=== PATIENT | female | born 1970 | race Caucasian/White ===

== ENCOUNTER → 2018-10-05 12:00 | Outpatient (CLI) | payer OTHER, SELFPAY ==
--- NOTE | 2018-10-05 | DI.RAD.S_ITS ---
PROCEDURE: XR KNEE LT 3V INDICATIONS: R HIP PAIN, BILATERAL KNEE PAIN TECHNIQUE: 3 views of the knee were acquired. COMPARISON: None. FINDINGS: Bones: No fractures or dislocations. Mild tricompartmental osteoarthritis is seen slightly more prominent in the medial femoral tibial compartment. No suspicious bony lesions. No patella subluxation is seen. Soft tissues: No joint effusion. No suspicious soft tissue calcifications. IMPRESSION: Mild tricompartmental osteoarthritis multiple prominent in medial femorotibial compartment. Dictated by: Chandler Cruz M.D. on 10/05/2018 at 13:38 Approved by: Chandler Cruz M.D. on 10/05/2018 at 13:40
--- NOTE | 2018-10-05 | DI.RAD.S_ITS ---
PROCEDURE: XR PELVIS 1-2V INDICATIONS: R HIP PAIN, BILATERAL KNEE PAIN TECHNIQUE: Single view(s) of the pelvis acquired. COMPARISON: None. FINDINGS: Bones: Mild bilateral hip joint osteoarthritic changes are seen slightly worse on the right side. No fractures or dislocations. No evidence of avascular necrosis of femoral heads. The mild right worse than left No suspicious bony lesions. Soft tissues: Visualized bowel gas pattern is normal. No suspicious soft tissue calcifications. IMPRESSION: Mild right worse than left bilateral hip joint osteoarthritis. Dictated by: Chandler Cruz M.D. on 10/05/2018 at 13:42 Approved by: Chandler Cruz M.D. on 10/05/2018 at 13:43
--- NOTE | 2018-10-05 | DI.RAD.S_ITS ---
PROCEDURE: XR KNEE STANDING BI INDICATIONS: PAIN TECHNIQUE: AP standing view of bilateral knees. COMPARISON: None. FINDINGS: Bones: Mild bilateral medial femoral tibial compartment joint space narrowing is seen. No fracture or dislocation. Soft tissues: No suspicious soft tissue calcification. IMPRESSION: Mild bilateral medial femoral tibial compartment joint space narrowing. Dictated by: Chandler Cruz M.D. on 10/05/2018 at 13:40 Approved by: Chandler Cruz M.D. on 10/05/2018 at 13:41
--- NOTE | 2018-10-05 | DI.RAD.S_ITS ---
PROCEDURE: XR KNEE RT 3V INDICATIONS: R HIP PAIN, BILATERAL KNEE PAIN TECHNIQUE: 3 views of the knee were acquired. COMPARISON: None. FINDINGS: Bones: No fractures or dislocations. Mild tricompartment osteoarthritis is seen. No suspicious bony lesions. No patella subluxation. Soft tissues: No joint effusion. No suspicious soft tissue calcifications. IMPRESSION: Mild tricompartment osteoarthritis. Dictated by: Chandler Cruz M.D. on 10/05/2018 at 13:36 Approved by: Chandler Cruz M.D. on 10/05/2018 at 13:38
== END ==
PROVIDERS: PCP Family Medicine; Visit Provider Chiropractor
DX: M25.551 Pain in right hip (principal); M25.561 Pain in right knee; M25.562 Pain in left knee; M17.0 Bilateral primary osteoarthritis of knee; M16.0 Bilateral primary osteoarthritis of hip
CPT/HCPCS: 72170; 73562; 73565

== ENCOUNTER → 2018-12-28 15:25 | Outpatient (CLI) | payer OTHER, SELFPAY ==
--- NOTE | 2018-12-28 | DI.MG.S_ITS ---
BILATERAL DIGITAL SCREENING MAMMOGRAM 3D/2D WITH CAD: 12/28/2018 CLINICAL: Routine screening. Comparison is made to exams dated: 01/02/2017 mammogram, 03/24/2015 mammogram, and 03/18/2014 mammogram - [facility]. The tissue of both breasts is heterogeneously dense. This may lower the sensitivity of mammography. Current study was also evaluated with a Computer Aided Detection (CAD) system. No significant masses, calcifications, or other findings are seen in either breast. There has been no significant interval change. IMPRESSION: NEGATIVE There is no mammographic evidence of malignancy. A 1 year screening mammogram is recommended. This exam was interpreted at Station ID: [id number]. NOTE: For mammograms, a report in lay terms will be sent to the patient. Approximately 15% of breast malignancies will not be visualized mammographically. In the management of a palpable breast mass, a negative mammogram must not discourage biopsy of a clinically suspicious lesion. Electronically Signed By: Bob santana/diann:12/28/2018 17:37:33 letter sent: Normal Exam ACR BI-RADS Category 1: Negative [id number]
== END ==
PROVIDERS: PCP Family Medicine; Visit Provider Family Medicine
DX: Z12.31 Encounter for screening mammogram for malignant neoplasm of breast (principal)
CPT/HCPCS: 77063; 77067

== ENCOUNTER → 2019-04-26 10:56 | Outpatient (CLI) | payer OTHER, SELFPAY ==
--- NOTE | 2019-05-07 16:01 | P.HOLT.S_ITS ---
[employer] Report Referral & Results Date Patient Seen: 04/26/19 Requesting provider: Saadia Bunn Indication: Palpitations Duration of monitoring (days): 7 Diary information: There were 7 patient triggered events and 5 patient diary entries Triggered events were associated with sinus rhythm, PACs and runs of SVT versus atrial tachycardia, the diary entries were associated with sinus rhythm and PACs Data: Minimum heart rate identified is 52 beats per minute at 22:10 on 05/02/2019 Maximum heart rate was 152 beats per minute at 07:17 on 04/29/2019 Less than 1% of identified beats rather ventricular supraventricular ectopic in origin Patient to runs of SVT/atrial tachycardia with the fastest being 14 beats at 152 beats per minute (which suggest possible atrial tachycardia) and this was also the longest run Impression: Patient with minor supraventricular dysrhythmias as above
== END ==
PROVIDERS: PCP Nurse Practitioner; Visit Provider Nurse Practitioner
DX: R00.2 Palpitations (principal)
CPT/HCPCS: 0296T; 0298T

== ENCOUNTER 2019-05-14 15:01 | Emergency (ER) | payer OTHER, SELFPAY ==
[2019-05-14 15:05] VITALS: BP 116/89; PULSE 71; RESP 12; TEMP 36.9; O2SAT 100; BMI 23.6
--- NOTE | 2019-05-14 15:18 | DI.RAD.S_ITS ---
PROCEDURE: XR CHEST 1V INDICATIONS: chest pain TECHNIQUE: One view of the chest was acquired. COMPARISON: [facility], , CHEST 2 VIEW, 02/03/2013, 13:56. FINDINGS: Surgical changes and devices: None. Lungs and pleura: Lungs are clear. No pleural effusions or pneumothorax. Mediastinum: Mediastinal contours appear normal. Heart size is normal. Bones and chest wall: No suspicious bony lesions. Overlying soft tissues appear unremarkable. IMPRESSION: No evidence acute pulmonary process. Dictated by: Get Angel M.D. on 05/14/2019 at 16:18 Approved by: Get Angel M.D. on 05/14/2019 at 16:18
[2019-05-14 15:29] LABS: Add Manual Diff / Slide Review NO; Basophils Absolute Auto 0 /uL (0-100); Basophils Percent Auto 0.5 % (0-2); Eosinophils Absolute Auto 200 /uL (0-450); Eosinophils Percent Auto 3.9 % (2-4); Hematocrit 40.5 % (36-46); Hemoglobin 13.6 g/dL (12.0-16.0); Lymphocytes Absolute Auto 1700 /uL (1100-4500); Lymphocytes Percent Auto 31.5 % (25-40); Mean Corpuscular HGB Conc 33.6 % (30-36); Mean Corpuscular Hemoglobin 33.4 PG (26-34); Mean Corpuscular Volume 99.3 fL (80-100); Monocytes Absolute Auto 500 /uL (0-900); Monocytes Percent Auto 9.2 % (3-14); Neutrophils Absolute Auto 3000 /uL (1500-7000); Neutrophils Percent Auto 54.9 % (50-75); Platelet Count 189 X10^3/uL (150-400); Red Blood Cell Count 4.07 X10^6/uL (4.0-5.2); Red Cell Distribution Width 12.8 % (11.6-14.8); White Blood Cell Count 5.5 X10^3/uL (4.5-11.0)
[2019-05-14 15:41] LABS: INR 1.1 (0.9-1.3); Prothrombin Time 12.7 SECONDS (10.1-12.7)
[2019-05-14 15:44] LABS: PTT Partial Thromboplastin Tim 36 SECONDS (26.4-36.2)
[2019-05-14 15:45] LABS: Alanine Aminotransferase 18 IU/L (<35); Albumin 4.3 g/dL (3.5-5.0); Albumin Globulin Ratio 1.3 (1.0-2.8); Alkaline Phosphatase 46 U/L (38-126); Aspartate Aminotransferase 28 IU/L (14-36); BUN Creatinine Ratio 27.1 (6-22); Bilirubin Total 0.7 mg/dL (0.2-1.3); Blood Urea Nitrogen 19 mg/dL (7-17); Calcium 9.1 mg/dL (8.4-10.2); Carbon Dioxide 29 mmol/L (22-32); Chloride 101 mmol/L (98-107); Creatine Kinase 42 U/L (30-135); Estimated Glomerular Filt Rate > 60.0 mL/min (>60); Globulin 3.2 g/dL (1.7-4.1); Glucose 158 mg/dL (70-100); HEMOLYSIS < 15 (0-50); Lipase 70 U/L (23-300); Potassium 3.3 mmol/L (3.4-5.1); Sodium 138 mmol/L (137-145); Total Protein 7.5 g/dL (6.3-8.2)
[2019-05-14 15:56] LABS: Troponin I < 0.012 ng/mL (0.01-0.034)
[2019-05-14 16:00] VITALS: BP 126/82; PULSE 74; PULSE 77; RESP 10; RESP 14; O2SAT 100
--- NOTE | 2019-05-14 16:53 | ED_ITS ---
HPI - Chest Pain General Chief Complaint: Chest Pain Stated Complaint: Chest pain Time Seen by Provider: 05/14/19 15:24 Source: patient Mode of arrival: Ambulatory Limitations: no limitations History of Present Illness HPI narrative: Patient is a 49-year-old female who presents with chest discomfort from the PCP office. She had a Zio patch placed on 04/26/2019 for heart palpitations she was getting the results today when she mentioned that she was having chest twinges ongoing frequently throughout the day. She they last briefly for a just 1-2 seconds sometimes going up into her neck and sometimes down into both of her hands. He denies any shortness of breath these feel different than her previous palpitations. No shortness of breath with exertion no diaphoresis no nausea or vomiting. She has had multiple episodes while in the ER for the last hour or more MD complaint: chest pain Duration: constant Onset: during rest Pain location: substernal Related Data Home Medications Medication Instructions Recorded Confirmed ibuprofen 200 mg tablet 600 mg PO Q6H PRN tab 03/22/19 05/14/19 L norgest/e.estradiol-e.estrad 1 tab PO DAILY 05/14/19 05/14/19 [Camrese] Previous Rx's Medication Instructions Recorded citalopram 10 mg tablet 10 mg PO DAILY #90 tab 05/04/19 hydroxyzine HCl 25 mg tablet 12.5 - 25 mg PO QID PRN #90 tab 05/14/19 Allergies Allergy/AdvReac Type Severity Reaction Status Date / Time No Known Allergies Allergy Uncoded 05/14/19 15:14 Review of Systems Review of Systems Narrative: GENERAL: Denies chills, fatigue, malaise, fever, sweats, travel HEENT: Denies sinus pain, ear pain, sore throat, difficulty swallowing, neck pain RESPIRATORY: Denies dyspnea, cough, wheezing, hemoptysis, sputum. CARDIOVASCULAR: See HPI GASTROINTESTINAL: Denies nausea, vomiting, abdominal pain, diarrhea, constipation, melena. : Denies dysuria, frequency, incontinence, hematuria, urinary retention, flank pain. MUSCULOSKELETAL: Denies weakness, joint pain, or bony pain SKIN: No rash, no erythema, no pruritus NEUROLOGIC: Denies weakness, dizziness, headache, numbness, change in speech, confusion PSYCHIATRIC: No concerning psychosocial issues. 12 point review of systems is negative except for those stated above and HPI Patient History Medical History Abnormal Pap smear of cervix (Resolved ~1996) Anxiety (Acute) Asthma (Chronic ~1975) Carpal tunnel syndrome (Chronic ~2016) Cervical dysplasia (Acute ~1993) Chicken pox (Resolved ~1974) Depression (Acute ~2011) Eczema (Acute) External hemorrhoid (Acute ~1995) Gestational diabetes (Acute) Headache (Chronic) Human papilloma virus (Resolved ~1996) Menorrhagia (Chronic ~1983) Migraines (Chronic) Ovarian cyst (Inactive ~2013) Painful menstrual periods (Chronic ~1983) Palpitations (Acute) Scoliosis (Chronic) Surgical History Anesthesia (Resolved) History of section (Acute ~1989) Family History Father Diabetes mellitus Coronary artery disease Brother Diabetes mellitus Grandfather No problems noted. Grandmother Dementia Grandfather Stroke Grandmother Cancer Social History Smoking Status: Former smoker Exam Initial Vital Signs Initial Vital Signs: Vital Signs Temperature 98.4 F 05/14/19 15:05 Pulse Rate 71 05/14/19 15:05 Respiratory Rate 12 05/14/19 15:05 Blood Pressure 116/89 05/14/19 15:05 Pulse Oximetry 100 05/14/19 15:05 GENERAL: Well-appearing, well-nourished and in no acute distress. HEENT: Head atraumatic,EOMI, pupils reactive, face symmetric, moist mucous membranes CARDIOVASCULAR: Regular rate and rhythm without murmurs, rubs or gallops. RESPIRATORY: Breath sounds equal bilaterally, no wheezes rales or rhonchi. ABDOMEN: Soft, nontender. Normoactive bowel sounds all 4 quadrants. No guarding or rebound. EXTREMITIES: Normal range of motion, no clubbing or edema. Neurovascularly intact NEUROLOGICAL: Alert and oriented x4.Normal gait and speech. Cranial nerves II through XII grossly intact. SKIN: Warm, dry, no laceration, no petechiae, no rashes or lesions. Scores HEART Score Heart Score history: Slightly Suspicious Heart Score EKG: Normal Heart Score Age: 45-64 years old Heart Score risk factors: 1-2 risk factors Heart Score troponin: < or = to normal limit Heart Score Total: 2 Course Orders Ordered: ED Orders 05/14/19 15:18 XR chest 1V Stat EKG-12 Lead Stat 05/14/19 15:23 Complete Blood Count AUTO DIFF Stat Comprehensive Metabolic Panel Stat Lipase Stat Partial Thromboplastin Time Stat Prothrombin Time INR Stat Troponin & CK Cardiac Panel Stat Vital Signs Vital signs: Vital Signs - 8 hr 05/14/19 15:05 05/14/19 16:00 05/14/19 17:28 Temperature 98.4 F Pulse Rate 71 74 77 Respiratory Rate 12 10 L 24 Blood Pressure 116/89 126/82 Blood Pressure [Left Arm] 126/82 Pulse Oximetry 100 100 98 MDM - Chest Pain Lab Data Attestation: I reviewed the patient's lab results. Result diagrams: 05/14/19 15:23 05/14/19 15:23 Labs: Lab Results 05/14/19 05/14/19 05/14/19 Range/Units 15:23 15:23 15:23 WBC 5.5 (4.5-11.0) X10^3/uL RBC 4.07 (4.0-5.2) X10^6/uL Hgb 13.6 (12.0-16.0) g/dL Hct 40.5 (36-46) % MCV 99.3 (80-100) fL MCH 33.4 (26-34) PG MCHC 33.6 (30-36) % RDW 12.8 (11.6-14.8) % Plt Count 189 (150-400) X10^3/uL Neut % (Auto) 54.9 (50-75) % Lymph % (Auto) 31.5 (25-40) % O'Brien % (Auto) 9.2 (3-14) % Eos % (Auto) 3.9 (2-4) % Baso % (Auto) 0.5 (0-2) % Neut # (Auto) 3000 (7614-4103) /uL Lymph # (Auto) 1700 (2323-9244) /uL O'Brien # (Auto) 500 (0-900) /uL Eos # (Auto) 200 (0-450) /uL Baso # (Auto) 0 (0-100) /uL PT 12.7 (10.1-12.7) SECONDS INR 1.1 (0.9-1.3) APTT 36 (26.4-36.2) SECONDS Sodium 138 (137-145) mmol/L Potassium 3.3 L (3.4-5.1) mmol/L Chloride 101 (98-107) mmol/L Carbon Dioxide 29 (22-32) mmol/L BUN 19 H (7-17) mg/dL Creatinine 0.70 (0.52-1.04) mg/dL Estimated GFR > 60.0 (>60) mL/min BUN/Creatinine Ratio 27.1 H (6-22) Glucose 158 H (70-100) mg/dL Calcium 9.1 (8.4-10.2) mg/dL Total Bilirubin 0.7 (0.2-1.3) mg/dL AST 28 (14-36) IU/L ALT 18 (<35) IU/L Alkaline Phosphatase 46 (38-126) U/L Total Creatine Kinase 42 (30-135) U/L CK-MB (CK-2) TNP CK-MB (CK-2) Rel Index TNP Troponin I < 0.012 (0.01-0.034) ng/mL Total Protein 7.5 (6.3-8.2) g/dL Albumin 4.3 (3.5-5.0) g/dL Globulin 3.2 (1.7-4.1) g/dL Albumin/Globulin Ratio 1.3 (1.0-2.8) Lipase 70 (23-300) U/L Imaging Data Chest x-ray: Radiologist's impression: PROCEDURE: XR CHEST 1V INDICATIONS: chest pain TECHNIQUE: One view of the chest was acquired. COMPARISON: [facility], CHEST 2 VIEW, 02/03/2013, 13:56. FINDINGS: Surgical changes and devices: None. Lungs and pleura: Lungs are clear. No pleural effusions or pneumothorax. Mediastinum: Mediastinal contours appear normal. Heart size is normal. Bones and chest wall: No suspicious bony lesions. Overlying soft tissues appear unremarkable. IMPRESSION: No evidence acute pulmonary process. Dictated by: Gte Angel M.D. on 05/14/2019 at 16:18 ECG Data Attestation: I personally reviewed and interpreted this ECG as follows: Prior ECG tracings: not available for review Interpretation: Normal sinus rhythm rate 83 p.r. interval 162 QRS 94 QTC [address] changes or T-wave inversions no priors to compare MDM Narrative Medical decision making narrative: The patient is chest tingling and sharp sensations are not consistent with cardiac ischemia however a do still recommend she have an echocardiogram and stress test however can be done as an outpatient. She has a low heart score. She has normal EKG troponin and chest x-ray in the ED. I discussed all findings with the patient and , Education has been performed regarding treatment plan, diagnosis, warning signs and symptoms and all concerns have been addressed. Verbally agree with and understood all of the above. Discharge Plan Departure Patient Disposition: Home Clinical Impression: Atypical chest pain Discharge Date/Time: 05/14/19 17:28 Instructions: DI for Atypical Chest Pain Activity Restrictions/Additional Instructions: *You have been diagnosed with atypical chest *What to do: Recommend that he still get an echocardiogram, and stress test arranged with your PCP. *Continue to take medications as directed *Follow up with your primary care provider in 2-3 days *Return to ER if you should have increasing chest pain shortness of breath dizziness lightheadedness heart palpitations or any new, worsening or concerning symptoms Prescriptions: No Action citalopram 10 mg tablet 10 mg PO DAILY Qty: 90 RF: 3 hydroxyzine HCl 25 mg tablet 12.5 - 25 mg PO QID PRN (Reason: insomnia/ anxiety) Qty: 90 RF: 2 ibuprofen 200 mg tablet 600 mg PO Q6H PRN (Reason: h/a) RF: 0 L norgest/e.estradiol-e.estrad [Camrese] 0.15 mg-30 mcg (84)/10 mcg (7) Tablets,Dose Pack,3 Month 1 tab PO DAILY RF: 0 Referrals: Saadia Bunn ARNP [Primary Care Provider] -
[2019-05-14 17:28] VITALS: BP 126/82; PULSE 77; RESP 24; O2SAT 98
== END 2019-05-14 17:28 | disposition home or self-care (01) ==
PROVIDERS: Emergency Provider Emergency Medicine; PCP Nurse Practitioner
DX: R07.89 Other chest pain (principal)
CPT/HCPCS: 71045; 80053; 82550; 83690; 84484; 85025; 85610; 85730; 93005; 99282; 99285

== ENCOUNTER → 2019-06-17 07:16 | Outpatient (CLI) | payer OTHER, SELFPAY ==
--- NOTE | 2019-06-17 07:17 | DI.ECHO.S_ITS ---
[facility]---------+ [facility] +---------+ : : [address] : : : : [id number] : : : : Phone: [phone] Echocardiogram Report + + :Name: CARLOS LEVY Study Date: 06/17/2019 Height: 70 in : :[facility] Weight: 165 lb : : Gender: Female BSA: 1.9 m2 : :: 1970 Age: 49 yrs BP: 132/78 mmHg: :Reason For Study: Chest pain : : Performed By: Obinna Fry : :Referring: NOEL WOODSON : + + Interpretation Summary The left ventricle is normal in size. The ejection fraction is estimated to be 55-60%. The right ventricle is normal in size and function. No significant valvular pathology seen. Procedure: A two-dimensional transthoracic echocardiogram with color flow and Doppler was performed. The study quality was technically adequate. There is no prior echocardiogram noted for this patient. The patient was in normal sinus rhythm during the exam. Left Ventricle: The left ventricle is normal in size. There is normal left ventricular wall thickness. There is no thrombus. Left ventricular systolic function is normal. The ejection fraction is estimated to be 55-60%. There is basal inferior wall hypokinesis. Diastolic parameters suggest probable normal left ventricular diastolic function and normal filling pressures. Right Ventricle: The right ventricle is normal in size and function. Atria: The left atrial size is normal. Right atrial size is normal. The interatrial septum is intact with no evidence for an atrial septal defect. Mitral Valve: The mitral valve is normal in structure and function. There is no mitral regurgitation noted. Aortic Valve: The aortic valve is trileaflet. The aortic valve opens well. There is no aortic valve stenosis. No aortic regurgitation is present. Tricuspid Valve: The tricuspid valve is normal in structure and function. There is trace tricuspid regurgitation. Pulmonary artery pressures cannot be estimated because of the lack of a measurable TR jet velocity. Pulmonic Valve: The pulmonic valve is not well visualized. There is trace pulmonic regurgitation. Great Vessels: The aortic root is normal size. The ascending aorta could not be visualized. The pulmonary artery is normal size. The IVC is dilated (diameter is greater than 2.1 cm) yet it collapses greater than 50% with a sniff. This suggests a right atrial pressure of 8 mm Hg. Pericardium/ Pleura There is no pericardial effusion. There is no pleural effusion. MMode/2D Measurements & Calculations LVIDd: 4.1 cm LVOT diam: 2.0 cm LVIDs: 2.9 cm Ao root diam: 2.6 cm FS: 30.5 % Aortic Jxn: 2.4 cm EPSS: 0.65 cm IVSd: 0.88 cm LVPWd: 0.87 cm LV w[place]ster. diameter/BSA (cm/m^2): 2.1 LV sys. diameter/BSA (cm/m^2): 1.5 LA A2 area: 19.2 cm2 RA long axis: 4.3 cm LA A4 area: 17.3 cm2 RA area: 12.2 cm2 LA length (vol): 5.4 cm RA vol: 29.4 ml LA vol: 52.4 ml RA : 15.3 ml/m2 LA vol index: 27.2 ml/m2 TAPSE: 2.2 cm Doppler Measurements & Calculations Ao V2 max: 126.7 cm/sec LVOT Max Henry: 97.2 cm/sec Ao V2 mean: 91.4 cm/sec LV V1 max P.8 mmHg Ao max P.4 mmHg LV V1 VTI: 21.5 cm Ao mean P.8 mmHg DEEDEE(I,D): 2.4 cm2 Ao V2 VTI: 27.9 cm DEEDEE(V,D): 2.4 cm2 sev ratio: 0.77 DEEDEE indexed to BSA (cm^2/m^2): 1.2 MV E max henry: 65.3 cm/sec PA V2 max: 71.3 cm/sec MV A max henry: 50.4 cm/sec PA V2 mean: 52.5 cm/sec MV E/A: 1.3 PA mean P.2 mmHg Med Peak E' Henry: 11.0 cm/sec PA Accel Time: 0.13 sec E/E' med: 5.9 Lat Peak E' Henry: 12.6 cm/sec E/E' lat: 5.2 E/e' average: 5.6 MV dec time: 0.25 sec SV(LVOT): 66.8 ml Reading Physician:12:36 PM
--- NOTE | 2019-06-17 08:18 | P.PCN_ITS ---
Cardiac Stress Test Report Referral & Results Date Patient Seen: 06/17/19 Time Patient Seen: 08:00 Requesting provider: Saadia Bunn Indication: Palpitations Rest ECG: Normal sinus rhythm Procedure Note: Today following both written and verbal informed consent, the patient was exercised according to a standard [place] protocol. The patient exerc ised for a total of 9 minutes 50 seconds achieving a maximum heart rate of 170. Patient's maximum systolic blood pressure was 142. This was an estimated 12.7 METs. No signs or symptoms of angina. No change in rhythm. [address] deviations that resolved slowly with rest. Normal hemodynamic response to exercise. BRENNAN -15% on active scale. Impression: Low probability for ischemia. Parish treadmill score 5 predicts 97% 5 year survival rate from cardiovascular causes. Please note: Actual ECG tracings can be found in the PACS system.
== END ==
PROVIDERS: PCP Nurse Practitioner; Visit Provider Nurse Practitioner
DX: R00.2 Palpitations (principal); R07.89 Other chest pain
CPT/HCPCS: 93016; 93017; 93018; C8929; Q9957

== ENCOUNTER → 2019-06-24 07:10 | Outpatient (CLI) | payer OTHER, SELFPAY ==
[2019-06-24 08:50] LABS: BUN Creatinine Ratio 17.1 (6-22); Blood Urea Nitrogen 12 mg/dL (7-17); Calcium 8.8 mg/dL (8.4-10.2); Carbon Dioxide 31 mmol/L (22-32); Chloride 101 mmol/L (98-107); Cholesterol 212 mg/dL (140-199); Estimated Glomerular Filt Rate > 60.0 mL/min (>60); Glucose 88 mg/dL (70-100); HDL Cholesterol 66 mg/dL (40-60); HEMOLYSIS < 15 (0-50); LDL Cholesterol Calculated 120 mg/dL (<100); Magnesium 1.9 mg/dL (1.6-2.3); Sodium 138 mmol/L (137-145); Triglycerides 132 mg/dL (35-150)
[2019-06-24 09:18] LABS: Thyroid Stimulating Hormone 1.26 uIU/mL (0.47-4.68)
== END ==
PROVIDERS: PCP Nurse Practitioner; Visit Provider Nurse Practitioner
DX: R00.2 Palpitations (principal); E87.6 Hypokalemia; I47.1 Supraventricular tachycardia; Z13.220 Encounter for screening for lipoid disorders
CPT/HCPCS: 36415; 80048; 80061; 83735; 84443

== ENCOUNTER → 2019-11-05 15:24 | Outpatient (CLI) | payer OTHER, SELFPAY | PROVIDERS: PCP Nurse Practitioner; Referring Provider Nurse Practitioner; Visit Provider Nurse Practitioner | DX: N91.2 Amenorrhea, unspecified (principal) | CPT/HCPCS: 36415; 83001 ==

== ENCOUNTER → 2020-01-04 14:43 | Outpatient (CLI) | payer OTHER, SELFPAY ==
--- NOTE | 2020-01-04 | DI.CT.S_ITS ---
PROCEDURE: CT SINUS SCREEN WO CON INDICATIONS: Other chronic sinusitis TECHNIQUE: Noncontrast 3.0 mm axial images acquired from the frontal sinuses to the mid-sella, with coronal and sagittal reformats. For radiation dose reduction, the following was used: automated exposure control, adjustment of mA and/or kV according to patient size. COMPARISON: None. FINDINGS: Image quality: Excellent. Sinuses: There is minimal bilateral maxillary as well as scattered ethmoid mucosal thickening. Ostiomeatal Complexes: Ostiomeatal complexes are patent. No Fernanda cells. Miscellaneous: Visualized intra-orbital contents are normal. Bilateral rodney bullosa are present. No. paradoxical turbinate curvature. No nasal septal deviation. IMPRESSION: 1. Minimal sinus disease predominantly within the maxillary sinuses. 2. Ostiomeatal complexes are widely patent. Dictated by: Frances Galindo M.D. on 01/04/2020 at 16:19 Approved by: Frances Galindo M.D. on 01/04/2020 at 16:20
== END ==
PROVIDERS: PCP Nurse Practitioner; Referring Provider Otolaryngology; Visit Provider Otolaryngology
DX: J32.8 Other chronic sinusitis (principal); R51 Headache
CPT/HCPCS: 70486

== ENCOUNTER → 2020-04-29 10:55 | Outpatient (CLI) | payer OTHER, SELFPAY ==
--- NOTE | 2020-04-29 10:56 | DI.RAD.S_ITS ---
PROCEDURE: XR HAND LT MIN 3V INDICATIONS: Bilateral hand and foot pain x 2 months, no trauma TECHNIQUE: 3 views of the hand(s) acquired. COMPARISON: [facility], , HAND 3V RIGHT, 03/28/2014, 11:18. FINDINGS: Bones: No fractures or dislocations. Carpal bones are normally aligned. No suspicious bony lesions. Soft tissues: No suspicious soft tissue calcifications. IMPRESSION: Left hand without acute or subacute osseous abnormalities. If there are persistent symptoms or clinical suspicion for pathology, then repeat radiographs or advanced imaging (CT, MRI or bone scan) should be considered for further evaluation. Dictated by: Bob Barnes M.D. on 04/29/2020 at 12:47 Approved by: Bob Barnes M.D. on 04/29/2020 at 12:48
--- NOTE | 2020-04-29 10:56 | DI.RAD.S_ITS ---
PROCEDURE: XR FOOT RT MIN 3V INDICATIONS: Bilateral hand and foot pain x 2 months, no trauma TECHNIQUE: 3 views of the foot were acquired. COMPARISON: None. FINDINGS: Bones: No fractures or dislocations. No suspicious bony lesions. Soft tissues: No tibiotalar joint effusion. Achilles tendon appears normal. IMPRESSION: Right foot without acute or subacute osseous abnormalities. If there are persistent symptoms or clinical suspicion for pathology, then repeat radiographs or advanced imaging (CT, MRI or bone scan) should be considered for further evaluation. Dictated by: Bob Barnes M.D. on 04/29/2020 at 12:46 Approved by: Bob Barnes M.D. on 04/29/2020 at 12:47
--- NOTE | 2020-04-29 10:56 | DI.RAD.S_ITS ---
PROCEDURE: XR HAND RT MIN 3V INDICATIONS: Bilateral hand and foot pain x 2 months, no trauma TECHNIQUE: 3 views of the hand(s) acquired. COMPARISON: [facility], , HAND 3V RIGHT, 03/28/2014, 11:18. FINDINGS: Bones: No fractures or dislocations. Carpal bones are normally aligned. No suspicious bony lesions. Soft tissues: No suspicious soft tissue calcifications. IMPRESSION: Right hand without acute or subacute osseous abnormalities. If there are persistent symptoms or clinical suspicion for pathology, then repeat radiographs or advanced imaging (CT, MRI or bone scan) should be considered for further evaluation. Dictated by: Bob Barnes M.D. on 04/29/2020 at 12:48 Approved by: Bob Barnes M.D. on 04/29/2020 at 12:49
--- NOTE | 2020-04-29 10:56 | DI.RAD.S_ITS ---
PROCEDURE: XR FOOT LT MIN 3V INDICATIONS: Bilateral hand and foot pain x 2 months, no trauma TECHNIQUE: 3 views of the foot were acquired. COMPARISON: None. FINDINGS: Bones: No fractures or dislocations. No suspicious bony lesions. Soft tissues: No tibiotalar joint effusion. Achilles tendon appears normal. IMPRESSION: Left foot without acute or subacute osseous abnormalities. If there are persistent symptoms or clinical suspicion for pathology, then repeat radiographs or advanced imaging (CT, MRI or bone scan) should be considered for further evaluation. Dictated by: Bob Barnes M.D. on 04/29/2020 at 12:45 Approved by: Bob Barnes M.D. on 04/29/2020 at 12:46
== END ==
PROVIDERS: PCP Nurse Practitioner; Referring Provider Registered Nurse Diabetes Educator; Visit Provider Registered Nurse Diabetes Educator
DX: M79.641 Pain in right hand (principal); M79.642 Pain in left hand; M79.671 Pain in right foot; M79.672 Pain in left foot
CPT/HCPCS: 73130; 73630

== ENCOUNTER → 2020-05-22 10:01 | Outpatient (CLI) | payer OTHER, SELFPAY ==
[2020-05-22 11:06] LABS: Add Manual Diff / Slide Review NO; Basophils Absolute Auto 0 /uL (0-100); Basophils Percent Auto 0.6 % (0-2); Eosinophils Absolute Auto 300 /uL (0-450); Eosinophils Percent Auto 5.8 % (2-4); Hematocrit 40.2 % (36-46); Hemoglobin 13.4 g/dL (12.0-16.0); Lymphocytes Absolute Auto 1900 /uL (1100-4500); Lymphocytes Percent Auto 32.5 % (25-40); Mean Corpuscular HGB Conc 33.3 % (30-36); Mean Corpuscular Hemoglobin 32.6 PG (26-34); Mean Corpuscular Volume 97.8 fL (80-100); Monocytes Absolute Auto 700 /uL (0-900); Monocytes Percent Auto 12.3 % (3-14); Neutrophils Absolute Auto 2800 /uL (1500-7000); Neutrophils Percent Auto 48.8 % (50-75); Platelet Count 234 X10^3/uL (150-400); Red Blood Cell Count 4.11 X10^6/uL (4.0-5.2); Red Cell Distribution Width 12.8 % (11.6-14.8); White Blood Cell Count 5.7 X10^3/uL (4.5-11.0)
[2020-05-22 11:14] LABS: C-Reactive Protein Quant < 0.5 mg/dL (<1.0)
[2020-05-22 11:17] LABS: Rheumatoid Factor < 8.6 IU/mL (<12.0)
[2020-05-22 11:29] LABS: Free T4, Direct Thyroxine 0.94 ng/dL (0.78-2.19)
[2020-05-22 11:42] LABS: Thyroid Stimulating Hormone 1.41 uIU/mL (0.47-4.68)
[2020-05-22 11:45] LABS: Erythrocyte Sedimentation Rate 8 MM/HR (0-20)
== END ==
PROVIDERS: PCP Nurse Practitioner; Referring Provider Nurse Practitioner; Visit Provider Nurse Practitioner
DX: M79.641 Pain in right hand (principal); M79.642 Pain in left hand; M79.671 Pain in right foot; M79.672 Pain in left foot; R51.9 Headache, unspecified; Z78.0 Asymptomatic menopausal state
CPT/HCPCS: 36415; 84439; 84443; 84481; 85025; 85651; 86140; 86430

== ENCOUNTER → 2021-06-11 10:22 | Outpatient (CLI) | payer OTHER, SELFPAY ==
--- NOTE | 2021-06-11 | DI.RAD.S_ITS ---
PROCEDURE: XR HIP W PEL IF DONE RT 2V INDICATIONS: RIGHT HIP PAIN TECHNIQUE: AP pelvis with lateral view(s) of the right hip(s). COMPARISON: None. FINDINGS: Bones: No fractures or dislocations. Pelvic ring appears intact. No suspicious bony lesions. Mild right hip osseous hypertrophy. Soft tissues: The visualized bowel gas pattern is normal. No suspicious soft tissue calcifications. IMPRESSION: Mild right hip osteoarthritis. Dictated by: Kamla Salazar MD, PhD on 06/11/2021 at 15:40 Approved by: Kamla Salazar MD, PhD on 06/11/2021 at 15:40
== END ==
PROVIDERS: PCP Nurse Practitioner; Referring Provider Chiropractor; Visit Provider Chiropractor
DX: M16.11 Unilateral primary osteoarthritis, right hip (principal); M25.551 Pain in right hip
CPT/HCPCS: 73502

== ENCOUNTER → 2021-10-18 07:55 | Outpatient (CLI) | payer OTHER, SELFPAY ==
--- NOTE | 2021-10-18 | DI.MG.S_ITS ---
BILATERAL DIGITAL SCREENING MAMMOGRAM 3D/2D WITH CAD: 10/18/2021 CLINICAL: Routine screening. Comparison is made to exams dated: 12/28/2018 mammogram, 01/02/2017 mammogram, and 03/24/2015 mammogram - [facility]. The tissue of both breasts is heterogeneously dense. This may lower the sensitivity of mammography. Current study was also evaluated with a Computer Aided Detection (CAD) system. No significant masses, calcifications, or other findings are seen in either breast. There has been no significant interval change. IMPRESSION: NEGATIVE There is no mammographic evidence of malignancy. A 1 year screening mammogram is recommended. This exam was interpreted at Station ID: [id number]. NOTE: For mammograms, a report in lay terms will be sent to the patient. Approximately 15% of breast malignancies will not be visualized mammographically. In the management of a palpable breast mass, a negative mammogram must not discourage biopsy of a clinically suspicious lesion. Electronically Signed By: Bob santana/diann:10/18/2021 08:58:06 letter sent: Normal Exam ACR BI-RADS Category 1: Negative 3341F
== END ==
PROVIDERS: PCP Nurse Practitioner; Referring Provider Nurse Practitioner; Visit Provider Nurse Practitioner
DX: Z12.31 Encounter for screening mammogram for malignant neoplasm of breast (principal)
CPT/HCPCS: 77063; 77067

== ENCOUNTER → 2022-02-27 07:19 | Outpatient (CLI) | payer OTHER, SELFPAY ==
[2022-02-27 09:09] LABS: Add Manual Diff / Slide Review NO; Basophils Absolute Auto 0 /uL (0-100); Basophils Percent Auto 0.5 % (0-2); Eosinophils Absolute Auto 300 /uL (0-450); Hematocrit 40.8 % (36-46); Hemoglobin 13.6 g/dL (12.0-16.0); Lymphocytes Absolute Auto 1700 /uL (1100-4500); Lymphocytes Percent Auto 34.3 % (25-40); Mean Corpuscular HGB Conc 33.4 % (30-36); Mean Corpuscular Hemoglobin 32.7 PG (26-34); Monocytes Absolute Auto 500 /uL (0-900); Monocytes Percent Auto 9.5 % (3-14); Neutrophils Absolute Auto 2500 /uL (1500-7000); Neutrophils Percent Auto 49.7 % (50-75); Platelet Count 214 X10^3/uL (150-400); Red Blood Cell Count 4.17 X10^6/uL (4.0-5.2); Red Cell Distribution Width 12.7 % (11.6-14.8); White Blood Cell Count 5.1 X10^3/uL (4.5-11.0)
[2022-02-27 09:42] LABS: Alanine Aminotransferase 13 IU/L (<35); Albumin Globulin Ratio 1.1 (1.0-2.8); Alkaline Phosphatase 61 U/L (38-126); Aspartate Aminotransferase 24 IU/L (14-36); BUN Creatinine Ratio 19.8 (6-22); Bilirubin Total 0.6 mg/dL (0.2-1.3); Blood Urea Nitrogen 16 mg/dL (7-17); Calcium 8.8 mg/dL (8.4-10.2); Carbon Dioxide 30 mmol/L (22-32); Chloride 105 mmol/L (98-107); Cholesterol 200 mg/dL (140-199); Estimated Glomerular Filt Rate > 60 mL/min (>60); Globulin 3.5 g/dL (1.7-4.1); Glucose 91 mg/dL (70-100); HDL Cholesterol 55 mg/dL (40-60); HEMOLYSIS < 15 (0-50); LDL Cholesterol Calculated 123 mg/dL (<100); Potassium 4.3 mmol/L (3.4-5.1); Sodium 139 mmol/L (137-145); Total Protein 7.5 g/dL (6.3-8.2); Triglycerides 111 mg/dL (35-150)
[2022-02-27 09:59] LABS: Free T3, Triiodothyronine Free 3.18 pg/mL (2.77-5.27); Free T4, Direct Thyroxine 1.04 ng/dL (0.78-2.19)
[2022-02-27 10:12] LABS: Thyroid Stimulating Hormone 1.87 uIU/mL (0.47-4.68)
== END ==
PROVIDERS: PCP Nurse Practitioner; Referring Provider Nurse Practitioner; Visit Provider Nurse Practitioner
DX: Z00.00 Encounter for general adult medical examination without abnormal findings (principal)
CPT/HCPCS: 36415; 80053; 80061; 84439; 84443; 84481; 85025

== ENCOUNTER → 2022-03-13 13:49 | Outpatient (CLI) | payer OTHER, SELFPAY | PROVIDERS: PCP Nurse Practitioner; Visit Provider Nurse Practitioner Family | DX: L72.9 Follicular cyst of the skin and subcutaneous tissue, unspecified (principal) | CPT/HCPCS: 87070; 87075; 87205 ==

== ENCOUNTER → 2022-04-03 13:55 | Outpatient (CLI) | payer OTHER, SELFPAY ==
[2022-04-03 14:31] LABS: Appearance Urine UA CLEAR; Bilirubin Urine UA NEGATIVE (NEGATIVE); Color Urine UA YELLOW; Glucose Urine UA NEGATIVE (Negative); Ketones Urine UA NEGATIVE (NEGATIVE); Leukocyte Esterase Urine UA 1+ (NEGATIVE); Nitrite Urine UA NEGATIVE (Negative); Occult Blood Urine UA NEGATIVE (Negative); Protein Urine UA 1+ (Negative); Specific Gravity Urine UA 1.025 (1.000-1.035); Urobilinogen Urine UA 0.2 E.U./dL (0.2)
[2022-04-03 14:42] LABS: RBC Urine None Seen (0-5/HPF); WBC Urine 5-10/HPF (0-5/HPF)
[2022-04-03 14:43] LABS: Bacteria Urine None Seen; Culture Indicated Urine Specimen Cultured; Squamous Epithelial Cell Urine 1-5 /HPF (0-5/HPF)
== END ==
PROVIDERS: PCP Nurse Practitioner; Referring Provider Nurse Practitioner; Visit Provider Nurse Practitioner
DX: R30.0 Dysuria (principal)
CPT/HCPCS: 81001; 87086

== ENCOUNTER → 2022-06-13 16:14 | Outpatient (CLI) | payer OTHER, SELFPAY ==
--- NOTE | 2022-06-13 16:15 | DI.MRI.S_ITS ---
PROCEDURE: MR HIP RT WO CON INDICATIONS: RIGHT HIP PAIN TECHNIQUE: Noncontrast coronal T1 spin echo and STIR through the bony pelvis. Coronal and axial T2 fast spin echo with fat saturation, sagittal T1 spin echo, and oblique axial T2 fast spin echo with fat saturation through the hip. COMPARISON: None. FINDINGS: Image quality: Excellent. Bones and joints: A symmetric moderate right hip joint osteoarthritic changes are seen with superior joint space narrowing, subchondral sclerosis and marginal osteophyte formation. Prominence of superior anterior right femoral head neck junction with subcortical cystic area is seen which can be seen associated with CAM type femoral acetabular impingement. No intraosseous lesions or fractures. No avascular necrosis of the femoral heads. The visualized lower lumbar spine appears normally aligned. Tendons and ligaments: The gluteus medius and minimus tendinosis at their insertions on greater trochanter is seen, without associated muscle atrophy. The nearby proximal iliotibial band also appears intact. The iliopsoas tendon appears intact, without adjacent bursal fluid collections or evidence for impingement syndrome. The origin of the hamstring tendon is intact at the ischial tuberosity, as well as the associated sacrotuberous ligament. The straight and reflected heads of the rectus femoris muscle origin appear intact, as well as the conjoint tendon. The ligamentum teres appears intact where visualized. Labrum and cartilage: Diffuse thinning of the articulating cartilage is seen. Signal abnormality and contour irregularity involving superior anterior right hip labrum at 1 to 3 o'clock position is seen suggestive of extensive superior anterior labral tear. The alpha angle of the femur is within normal limits at less than 55 degrees. Soft tissues: Visualized muscles demonstrate normal bulk and internal signal. Quadratus femoris muscle demonstrates no internal edema to suggest ischiofemoral impingement. The proximal sciatic neurovascular bundle appears normal adjacent to the hamstring tendons. No free pelvic fluid. Bladder wall thickness is normal. Genitourinary structures and bowel loops appear normal where visualized. IMPRESSION: 1. Asymmetric moderate right hip joint osteoarthritis as above. Prominence of superior anterior right femoral head neck junction with subcortical cystic changes which can be seen associated with CAM type femoral acetabular impingement. No evidence of avascular necrosis of femoral head. 2. Mild distal right gluteus medius and minimus tendinosis at their insertion on greater trochanter. No other muscle or tendon signal abnormality. 3. Suggestion of extensive superior anterior right hip labral tear at 1 to 3 o'clock position. Dictated by: Chandler Cruz M.D. on 06/14/2022 at 9:02 Approved by: Chandler Cruz M.D. on 06/14/2022 at 9:08
== END ==
PROVIDERS: Family Provider Nurse Practitioner; PCP Nurse Practitioner; Referring Provider Orthopaedic Surgery; Visit Provider Orthopaedic Surgery
DX: M16.11 Unilateral primary osteoarthritis, right hip (principal); M25.551 Pain in right hip
CPT/HCPCS: 73721

== ENCOUNTER → 2022-06-26 17:10 | Outpatient (CLI) | payer OTHER, SELFPAY ==
--- NOTE | 2022-06-26 17:11 | DI.RAD.S_ITS ---
PROCEDURE: XR CHEST 2V INDICATIONS: cough TECHNIQUE: 2 views of the chest were acquired. COMPARISON: [facility], CR, XR CHEST 1V, 05/14/2019, 16:01. FINDINGS: Surgical changes and devices: None. Lungs and pleura: Lungs are clear. No pleural effusions or pneumothorax. Mediastinum: Mediastinal contours are normal. Heart size is normal. Bones and chest wall: No suspicious bony abnormalities. Soft tissues appear unremarkable. IMPRESSION: Stable radiographic evaluation of the chest without acute cardiopulmonary abnormalities or focal airspace disease. Dictated by: Bob Barnes M.D. on 06/27/2022 at 9:04 Approved by: Bob Barnes M.D. on 06/27/2022 at 9:05
== END ==
PROVIDERS: Family Provider Nurse Practitioner; PCP Nurse Practitioner; Referring Provider Nurse Practitioner; Visit Provider Nurse Practitioner
DX: R05.9 Cough, unspecified (principal)
CPT/HCPCS: 71046

== ENCOUNTER → 2022-09-02 16:45 | Outpatient (CLI) | payer OTHER, SELFPAY ==
[2022-09-02 17:49] LABS: Appearance Urine UA CLEAR; Bilirubin Urine UA NEGATIVE (NEGATIVE); Color Urine UA YELLOW; Glucose Urine UA NEGATIVE (Negative); Ketones Urine UA NEGATIVE (NEGATIVE); Leukocyte Esterase Urine UA TRACE (NEGATIVE); Nitrite Urine UA NEGATIVE (Negative); Occult Blood Urine UA NEGATIVE (Negative); Protein Urine UA NEGATIVE (Negative); Specific Gravity Urine UA 1.015 (1.000-1.035); Urobilinogen Urine UA 0.2 E.U./dL (0.2)
[2022-09-02 18:05] LABS: Bacteria Urine None Seen; RBC Urine None Seen (0-5/HPF); Squamous Epithelial Cell Urine 0-1 /HPF (0-5/HPF); WBC Urine 0-1/HPF (0-5/HPF)
== END ==
PROVIDERS: Family Provider Nurse Practitioner; PCP Nurse Practitioner; Referring Provider Nurse Practitioner; Visit Provider Nurse Practitioner
DX: Z87.440 Personal history of urinary (tract) infections (principal)
CPT/HCPCS: 81003; 81015; 87086

== ENCOUNTER → 2022-09-04 09:06 | Outpatient (CLI) | payer OTHER, SELFPAY | PROVIDERS: Family Provider Nurse Practitioner; PCP Nurse Practitioner; Visit Provider Nurse Practitioner | DX: N89.8 Other specified noninflammatory disorders of vagina (principal); R30.9 Painful micturition, unspecified; R52 Pain, unspecified | CPT/HCPCS: 87070; 87205 ==

== ENCOUNTER → 2022-09-11 10:07 | Outpatient (CLI) | payer OTHER, SELFPAY ==
--- NOTE | 2022-09-11 10:08 | DI.RAD.S_ITS ---
PROCEDURE: XR FINGER LT MIN 2V INDICATIONS: Finger injury TECHNIQUE: AP hand, 2 views of the left hand 4th digit acquired. COMPARISON: None. FINDINGS: Bones: Oblique lucency along the mid aspect of the 4th digit middle phalanx could represent an acute nondisplaced fracture. No dislocations identified. Soft tissues: No suspicious soft tissue calcifications. IMPRESSION: Possible acute nondisplaced fracture 4th digit middle phalanx without articular surface involvement identified. Correlation with point tenderness may be helpful. If symptoms persist, follow-up radiographs and/or CT or MRI may be helpful for further evaluation. Dictated by: Jacky Sharif M.D. on 09/11/2022 at 15:14 Approved by: Jacky Sharif M.D. on 09/11/2022 at 15:19
== END ==
PROVIDERS: Family Provider Nurse Practitioner; PCP Nurse Practitioner; Referring Provider Nurse Practitioner Family; Visit Provider Nurse Practitioner Family
DX: S69.92XA Unspecified injury of left wrist, hand and finger(s), initial encounter (principal); X58.XXXA Exposure to other specified factors, initial encounter
CPT/HCPCS: 73140

== ENCOUNTER → 2022-10-02 10:58 | Outpatient (CLI) | payer OTHER, SELFPAY ==
--- NOTE | 2022-10-02 10:59 | DI.RAD.S_ITS ---
PROCEDURE: XR FINGER LT MIN 2V INDICATIONS: F/U imaging 09/11/22 TECHNIQUE: AP hand, 2 views of the 4th finger(s) acquired. COMPARISON: [facility], , XR FINGER LT MIN 2V, 09/11/2022, 10:09. FINDINGS: Bones: Slightly increased displacement and lucency of the left 4th middle phalanx fracture. Soft tissues: No suspicious soft tissue calcifications. IMPRESSION: Mildly displaced left 4th middle phalanx fracture, , increased in lucency in conspicuity compared to 09/11/2022. Dictated by: Brandin Estrada M.D. on 10/02/2022 at 13:54 Approved by: Brandin Estrada M.D. on 10/02/2022 at 13:55
== END ==
PROVIDERS: Family Provider Nurse Practitioner; PCP Nurse Practitioner; Referring Provider Nurse Practitioner; Visit Provider Nurse Practitioner
DX: S62.625A Displaced fracture of middle phalanx of left ring finger, initial encounter for closed fracture (principal); X58.XXXA Exposure to other specified factors, initial encounter
CPT/HCPCS: 73140

== ENCOUNTER 2022-10-17 15:15 | Outpatient (RCR) | payer OTHER, SELFPAY ==
--- NOTE | 2022-06-20 16:20 | PT.OPPOC ---
Physical, Occupational & Speech Therapy At [facility] Current Diagnoses Pain in right hip (06/20/22) Pain in right leg (06/20/22) Visit Care Team Role Provider Type JONH Farah Attending Provider Advanced Seamstress Fitter Family Provider Primary Care Provider Referring Provider Specialty: Family Practice Address: [address] [place] [address], [facility] Email: [email or web address] Plan Of Care PT-OP-T Assessment and Plan Start: 06/20/22 08:06 Freq: Status: Active Protocol: Document 06/20/22 14:28 [facility] (Rec: 06/20/22 15:31 [facility] [id number]) Physical Therapy Assessment Rehab Potential Rehabilitation Potential Good Evaluation Complexity Number of Personal Factors/Comorbidities 1-2 Number of Body Systems Impaired 3 Clinical Presentation at Evaluation Evolving Impairments Impairments Activity Tolerance,Gait,Pain, ROM,Soft Tissue Mobility, Strength Goals Three Impairment activity intolerance Impairment LEFS score 44% Short Term Goal (STG) Improve LEFS score to at least 60%as measure of improved LE function and activity tolerance STG Duration 08/07/22 Alf Goal (LTG) Improve LEFS score to at least 75% as measure of improved LE function and activity tolerance LTG Duration 09/18/22 Two Impairment strength and flexibility impairments Short Term Goal (STG) Patient to be instructed in HEP of therapeutic exercises for strengthening, flexibility and stabilization of core STG Duration 07/21/22 Solderer Electronic Goal (LTG) Patient to be independent and compliant with HEP and demonstrate improved strength and flexibility to WNL to allow her to do usual activities including playing in the yard, standing for work , taking walks LTG Duration 09/18/22 One Impairment right sided pain lumbar, hip, loraine/lateral LE Impairment 6/10 on pain scale Short Term Goal (STG) Decrease pain to no greater than 3/10 with all usual activitie STG Duration 07/21/22 Solderer Electronic Goal (LTG) Decrease pain to no greater than 1-2/10 with all usual activities LTG Duration 09/18/22 Assessment Summary Assessment Patient presents to PT with function-limiting pain right hip and LE which sounds as if started with orthopedic issues she was born with. Her right LE is longer than left, has pain with resisted hip IR, active hip flexion, heel worn excessively on right shoe. Right iliac crest higher in standing, lower arch right. Weak glutus med and max right , dec IR at 20 and ER 40 right hip. She reported decreased pain with short and long axis distraction at hip. Tayler's test positive. Feel she would benefit from PT for strengthening and flexibility, joint mobilization, manual therapy and modalities as indicated. Signs and symptoms are consistent with hip OA with possible labral tear. Aquatic exercise was also recommended; will discuss further with pt as this clinic no longer offering aquatic PT . Discussed POC and patient was in agreement. Physical Therapy Plan Frequency and Duration Frequency of Treatment 2x/Week Duration of treatment (weeks) 12 Plan of Care Start Date 06/20/22 Plan of Care End Date 09/18/22 Therapeutic Interventions Therapeutic Interventions Home Exercise Program,Joint Mobilizations,Manual Therapy, Neuromuscular Re-education, Self-Care/Home Management, Sensory Integration,Soft Tissue Mobilization, Therapeutic Activities, Therapeutic Exercises Modalities Cold Pack/Ice Massage,Electric Stimulation,Hot Packs, Infrared Therapy,Iontophoresis ,Ultrasound Next Visit Focus/Plan Next Note Type Treatment Note Next Visit Plan Review HEP, provide joint mobilization to hip especially distraction, posterior glide. Plan of Care Dates Plan of Care Start Date 06/20/22 Plan of Care End Date 09/18/22 Electronically Signed by: Karuna Gaviria, PT 06/26/22 3727 If you are in agreement with this Plan of Care, please return a signed and dated copy. I have reviewed this Plan of Care and certify that the skilled therapy services above are required to meet the patient?s needs. Physician Signature Date Printed Name and Credentials Clinical Instructor Signature Printed Name and Credentials
--- NOTE | 2022-06-20 16:20 | PT.OIE ---
Current Diagnoses Pain in right hip (06/20/22) Pain in right leg (06/20/22) Past Medical History (Last Reviewed 03/06/22 @ 11:56 by JONH Farah) Abnormal Pap smear of cervix (~1996) Anxiety Asthma (~1975) Bilateral foot pain Bilateral hand pain Carpal tunnel syndrome (~2016) Cervical dysplasia (~1993) Cervical somatic dysfunction Chicken pox (~1974) Chronic lower back pain Chronic thoracic back pain Cranial somatic dysfunction Depression (~2011) Eczema Excess ear wax External hemorrhoid (~1995) Follicle stimulating hormone excess Gestational diabetes Hand pain Headache Headache above the eye region Human papilloma virus (~1996) Menopause Menorrhagia (~1983) Migraines Ovarian cyst (~2013) Pain of foot Painful menstrual periods (~1983) Palpitations Pelvic somatic dysfunction Scoliosis Segmental and somatic dysfunction of sacral region Segmental and somatic dysfunction of thoracic region Sinus pain Past Surgical History (Last Reviewed 03/06/22 @ 11:56 by JONH Farah) Anesthesia History of section (~1989) Visit Care Team Role Provider Type JONH Farah Attending Provider Advanced Speech Pathologist Family Provider Primary Care Provider Referring Provider Specialty: Family Practice Address: [address] [place] [address], [facility] Email: [email or web address] Physical Therapy Initial Evaluation PT-OP-A Visit Information Start: 06/20/22 08:06 Freq: Status: Active Protocol: Document 06/20/22 14:28 [facility] (Rec: 06/20/22 15:31 [facility] [id number]) Out-Patient Physical Therapy Visit Information Visit Information Visit Type Initial Evaluation Visit Start Time 14:28 Visit Stop Time 15:20 Total Visit Minutes 52 Visit Number 1 Evaluation Information Evaluation Date 06/20/22 PT-OP-B Current Condition Start: 06/20/22 08:06 Freq: Status: Active Protocol: Document 06/20/22 14:28 [facility]AK (Rec: 06/20/22 15:31 [facility] [id number]) Current Condition History of Current Condition Onset Date years Current Complaints right hip and LE pain History of Current Condition Reports gradual worsening of right hip and LE pain over the course of years. 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 Wears lift in left and orthtics bilaterally; only footwear she can wear orthotics in. Gradual worsening of pain in right LE. Sees chiropractor 2x/month to straighten me out , sometimes uses foam roller. Hasn't gone to the gym for a long time, doing a lot of body weight exercise. Stands most of the day for work. Doesn't wear same shoes every day; anything that allows her to wear her custom orthotics. Massage 1x/mo. Prior Treatments and Tests MRI 06/13/22: 1. Asymmetric moderate right hip joint osteoarthritis as above. 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 No evidence of avascular necrosis of femoral head. 2. Mild distal right gluteus medius and minimus tendinosis at their insertion on greater trochanter. No other muscle or tendon signal abnormality. 3. Suggestion of extensive superior anterior right hip labral tear at 1 to 3 o'clock position. Treatment Goals Patient/Caregiver Goals Decrease pain, play in yard, be able to walk without pain. 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 Current Functional Impairments (Reported) Functional Limitations- ADL's painful Functional Limitations- Mobility/Gait painful Functional Limitations- Work/School painful; stands most of the day Functional Limitations- Recreation/ unable Hobbies Personal Factors Other Personal Factors That May Effect stands all day for work Therapy/Recovery PT-OP-C Subjective Start: 06/20/22 08:06 Freq: Status: Active Protocol: Document 06/20/22 14:29 [facility] (Rec: 06/26/22 16:19 [facility] [id number]) Patient Questionnaires Lower Extremity Functional Scale LEFS Score 48 OP-PT Pain Assessment Pain Assessment Grid Paper Pain Assessment Grid Completed Yes Location right l/s, hip, thigh Pain Location Details see pain chart Intensity 6 Description Aching,Chronic,Cramping, Pressure,Spasm,Tender Frequency Frequent Radiating Location anterolateral thigh Pain Aggravating Factors Activity,Standing,Walking, Bending Pain Alleviating Factors Inactivity,Rest PT-OP-G Mobility & Gait Start: 06/20/22 08:06 Freq: Status: Active Protocol: Document 06/20/22 14:29 [facility] (Rec: 06/26/22 16:19 [facility] [id number]) OP Gait Assessment Gait Gait Assistance Required: Independent Assistive Devices Assistive Device None Orthotic/Prosthetic Devices or Brace: Yes Gait Deviations General Gait Pattern Antalgic,Decreased Stride Length,Decreased Feet Clearance Factors Limiting Gait Function Factors Limiting Gait Function Decreased Sensation,Pain PT-OP-J Posture/Palpation/Skin Start: 06/20/22 08:06 Freq: Status: Active Protocol: Document 06/20/22 14:29 [facility] (Rec: 06/26/22 16:19 [facility] [id number]) Posture Evaluation Position Standing Head/C-Spine Posture Forward Head T-Spine Posture Increased Kyphosis L-Spine Posture Increased Lordosis Pelvis Posture Anteriorly Tilted Ankle/Foot Posture (L) Pronated,(R) Pronated Foot Arch (L) Low Arch,(R) Low Arch PT-OP-K Range of Motion Start: 06/20/22 08:06 Freq: Status: Active Protocol: Document 06/20/22 14:29 [facility] (Rec: 06/26/22 16:19 [facility] [id number]) Lumbar Spine Range of Motion Lumbar Spine Active Degrees Testing Position Standing Flexion 25 Extension 20 Rotation Left 40 Rotation Right 40 Lateral Flexion Left 35 Lateral Flexion Right 35 ROM Limitations Soft Tissue Tightness Hip Goniometric Range of Motion Hip Right Straight Leg Raise 55 Extension 5 Left Straight Leg Raise 60 Extension 10 PT-OP-L Special Tests Start: 06/20/22 08:06 Freq: Status: Active Protocol: Document 06/20/22 14:29 [facility] (Rec: 06/26/22 16:19 [facility] [id number]) Special Tests Hip Special Tests Anterior Labral Test Test Results positive right LELA Test Results negative PT-OP-M Strength Start: 06/20/22 08:06 Freq: Status: Active Protocol: Document 06/20/22 14:29 [facility] (Rec: 06/26/22 16:19 [facility] [id number]) Trunk Strength Trunk Manual Muscle Testing Flexion 4- Good- Extension 4- Good- Core Stabilization decreased activation of TrA Hip Strength Hip Manual Muscle Testing Right Flexion (L2) 4- Good- Extension (S1) 4- Good- Abduction 4- Good- Adduction 4 Good External Rotation 4- Good- Internal Rotation 4- Good- Left Flexion (L2) 4 Good Extension (S1) 4- Good- Abduction 4- Good- Adduction 4 Good External Rotation 4- Good- Internal Rotation 4 Good Knee Strength Knee Manual Muscle Testing Right Flexion (S2) 4 Good Extension (L3) 4 Good Left Flexion (S2) 5 Normal Extension (L3) 5 Normal PT-OP-Q Treatments Start: 06/20/22 08:06 Freq: Status: Active Protocol: Document 06/20/22 14:29 [facility] (Rec: 06/26/22 16:19 [facility] [id number]) Self-Care/Home Management Treatment Education Patient Education Home Exercise Program,Pain Management,Posture PT-OP-T Assessment and Plan Start: 06/20/22 08:06 Freq: Status: Active Protocol: Document 06/20/22 14:28 [facility] (Rec: 06/20/22 15:31 [facility] [id number]) Physical Therapy Assessment Rehab Potential Rehabilitation Potential Good Evaluation Complexity Number of Personal Factors/Comorbidities 1-2 Number of Body Systems Impaired 3 Clinical Presentation at Evaluation Evolving Impairments Impairments Activity Tolerance,Gait,Pain, ROM,Soft Tissue Mobility, Strength Goals Three Impairment activity intolerance Impairment LEFS score 44% Short Term Goal (STG) Improve LEFS score to at least 60%as measure of improved LE function and activity tolerance STG Duration 08/07/22 Sap Bw Architect Goal (LTG) Improve LEFS score to at least 75% as measure of improved LE function and activity tolerance LTG Duration 09/18/22 Two Impairment strength and flexibility impairments Short Term Goal (STG) Patient to be instructed in HEP of therapeutic exercises for strengthening, flexibility and stabilization of core STG Duration 07/21/22 Sap Bw Architect Goal (LTG) Patient to be independent and compliant with HEP and demonstrate improved strength and flexibility to WNL to allow her to do usual activities including playing in the yard, standing for work , taking walks LTG Duration 09/18/22 One Impairment right sided pain lumbar, hip, loraine/lateral LE Impairment 6/10 on pain scale Short Term Goal (STG) Decrease pain to no greater than 3/10 with all usual activitie STG Duration 07/21/22 Sap Bw Architect Goal (LTG) Decrease pain to no greater than 1-2/10 with all usual activities LTG Duration 09/18/22 Assessment Summary Assessment Patient presents to PT with function-limiting pain right hip and LE which sounds as if started with orthopedic issues she was born with. Her right LE is longer than left, has pain with resisted hip IR, active hip flexion, heel worn excessively on right shoe. Right iliac crest higher in standing, lower arch right. Weak glutus med and max right , dec IR at 20 and ER 40 right hip. She reported decreased pain with short and long axis distraction at hip. Lela's test positive. Feel she would benefit from PT for strengthening and flexibility, joint mobilization, manual therapy and modalities as indicated. Signs and symptoms are consistent with hip OA with possible labral tear. Aquatic exercise was also recommended; will discuss further with pt as this clinic no longer offering aquatic PT . Discussed POC and patient was in agreement. Physical Therapy Plan Frequency and Duration Frequency of Treatment 2x/Week Duration of treatment (weeks) 12 Plan of Care Start Date 06/20/22 Plan of Care End Date 09/18/22 Therapeutic Interventions Therapeutic Interventions Home Exercise Program,Joint Mobilizations,Manual Therapy, Neuromuscular Re-education, Self-Care/Home Management, Sensory Integration,Soft Tissue Mobilization, Therapeutic Activities, Therapeutic Exercises Modalities Cold Pack/Ice Massage,Electric Stimulation,Hot Packs, Infrared Therapy,Iontophoresis ,Ultrasound Next Visit Focus/Plan Next Note Type Treatment Note Next Visit Plan Review HEP, provide joint mobilization to hip especially distraction, posterior glide.
--- NOTE | 2022-07-02 16:19 | PT.OTN ---
Current Diagnoses Pain in right hip (07/02/22) Pain in right leg (07/02/22) Physical Therapy Treatment Note PT-OP-A Visit Information Start: 06/20/22 08:06 Freq: Status: Active Protocol: Document 07/02/22 15:17 [facility] (Rec: 07/02/22 16:19 [facility] [id number]) Out-Patient Physical Therapy Visit Information Visit Information Visit Type Treatment Note Visit Start Time 15:17 Visit Number 2 PT-OP-B Current Condition Start: 06/20/22 08:06 Freq: Status: Active Protocol: Document 07/02/22 15:17 [facility] (Rec: 07/02/22 16:19 [facility] [id number]) Current Condition History of Current Condition Onset Date years Current Complaints right hip and LE pain History of Current Condition Reports gradual worsening of right hip and LE pain over the course of years. 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 Wears lift in left and orthtics bilaterally; only footwear she can wear orthotics in. Gradual worsening of pain in right LE. Sees chiropractor 2x/month to straighten me out , sometimes uses foam roller. Hasn't gone to the gym for a long time, doing a lot of body weight exercise. Stands most of the day for work. Doesn't wear same shoes every day; anything that allows her to wear her custom orthotics. Massage 1x/mo. Prior Treatments and Tests MRI 06/13/22: 1. Asymmetric moderate right hip joint osteoarthritis as above. 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 No evidence of avascular necrosis of femoral head. 2. Mild distal right gluteus medius and minimus tendinosis at their insertion on greater trochanter. No other muscle or tendon signal abnormality. 3. Suggestion of extensive superior anterior right hip labral tear at 1 to 3 o'clock position. 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 PT-OP-C Subjective Start: 06/20/22 08:06 Freq: Status: Active Protocol: Document 06/20/22 14:29 [facility] (Rec: 06/26/22 16:19 [facility] [id number]) Patient Questionnaires Lower Extremity Functional Scale LEFS Score 48 OP-PT Pain Assessment Pain Assessment Grid Paper Pain Assessment Grid Completed Yes Location right l/s, hip, thigh Pain Location Details see pain chart Intensity 6 Description Aching,Chronic,Cramping, Pressure,Spasm,Tender Frequency Frequent Radiating Location anterolateral thigh Pain Aggravating Factors Activity,Standing,Walking, Bending Pain Alleviating Factors Inactivity,Rest PT-OP-G Mobility & Gait Start: 06/20/22 08:06 Freq: Status: Active Protocol: Document 06/20/22 14:29 [facility] (Rec: 06/26/22 16:19 [facility] [id number]) OP Gait Assessment Gait Gait Assistance Required: Independent Assistive Devices Assistive Device None Orthotic/Prosthetic Devices or Brace: Yes Gait Deviations General Gait Pattern Antalgic,Decreased Stride Length,Decreased Feet Clearance Factors Limiting Gait Function Factors Limiting Gait Function Decreased Sensation,Pain PT-OP-J Posture/Palpation/Skin Start: 06/20/22 08:06 Freq: Status: Active Protocol: Document 06/20/22 14:29 [facility] (Rec: 06/26/22 16:19 [facility] [id number]) Posture Evaluation Position Standing Head/C-Spine Posture Forward Head T-Spine Posture Increased Kyphosis L-Spine Posture Increased Lordosis Pelvis Posture Anteriorly Tilted Ankle/Foot Posture (L) Pronated,(R) Pronated Foot Arch (L) Low Arch,(R) Low Arch PT-OP-K Range of Motion Start: 06/20/22 08:06 Freq: Status: Active Protocol: Document 06/20/22 14:29 [facility] (Rec: 06/26/22 16:19 [facility] [id number]) Lumbar Spine Range of Motion Lumbar Spine Active Degrees Testing Position Standing Flexion 25 Extension 20 Rotation Left 40 Rotation Right 40 Lateral Flexion Left 35 Lateral Flexion Right 35 ROM Limitations Soft Tissue Tightness Hip Goniometric Range of Motion Hip Right Straight Leg Raise 55 Extension 5 Left Straight Leg Raise 60 Extension 10 PT-OP-L Special Tests Start: 06/20/22 08:06 Freq: Status: Active Protocol: Document 06/20/22 14:29 [facility] (Rec: 06/26/22 16:19 [facility] [id number]) Special Tests Hip Special Tests Anterior Labral Test Test Results positive right LELA Test Results negative PT-OP-M Strength Start: 06/20/22 08:06 Freq: Status: Active Protocol: Document 06/20/22 14:29 [facility] (Rec: 06/26/22 16:19 [facility] [id number]) Trunk Strength Trunk Manual Muscle Testing Flexion 4- Good- Extension 4- Good- Core Stabilization decreased activation of TrA Hip Strength Hip Manual Muscle Testing Right Flexion (L2) 4- Good- Extension (S1) 4- Good- Abduction 4- Good- Adduction 4 Good External Rotation 4- Good- Internal Rotation 4- Good- Left Flexion (L2) 4 Good Extension (S1) 4- Good- Abduction 4- Good- Adduction 4 Good External Rotation 4- Good- Internal Rotation 4 Good Knee Strength Knee Manual Muscle Testing Right Flexion (S2) 4 Good Extension (L3) 4 Good Left Flexion (S2) 5 Normal Extension (L3) 5 Normal PT-OP-Q Treatments Start: 06/20/22 08:06 Freq: Status: Active Protocol: Document 07/02/22 15:17 [facility] (Rec: 07/02/22 16:19 [facility] [id number]) Cardio Equipment Recumbent Stepper (Sci-Fit) Duration (Minutes) 8 Resistance 1.5 Seat Position 13 Other UE/LE first 4 min, LE's only .95 mi Gym Equipment Shuttle Recovery Unilateral Squats Resistance 37 Shuttle Recovery Platform Stable Reps/Time 10x2 Bilateral Squats Details cues for alignment and muscle activation Resistance 62 Shuttle Recovery Platform Stable Reps/Time 10x2 Therapeutic Exercises Supine Exercises bridge Reps/Minutes 10x Comments segmental ball squeeze Equipment Used green ball Reps/Minutes 10x Sidelying Exercises sidelying hip abd Reps/Minutes 10x Comments bottom leg straight, cues for core, keep leg parallel clam Reps/Minutes 10x5 Standing Exercises leg pendulum Standing Exercise Name HEP Manual Therapy Treatment Soft Tissue Mobilization IT band, quads Mobilization Type Instrument Assisted Intensity/Depth Moderate Body Position Sidelying Comments rolling pin Joint Mobilizations right hip Direction long axis distraction Grade III Body Position Supine Reps/Duration 6 min Self-Care/Home Management Treatment Education Other Education sidelying bed positioning; issued handout PT-OP-R Modalities Start: 06/20/22 08:06 Freq: Status: Active Protocol: Document 07/02/22 15:17 [facility] (Rec: 07/02/22 16:19 [facility] [id number]) Hot Pack/Cold Pack Treatment Hot Pack Location right lateral hip, IT band, lateral quad PT-OP-T Assessment and Plan Start: 06/20/22 08:06 Freq: Status: Active Protocol: Document 07/02/22 15:17 [facility] (Rec: 07/02/22 16:19 [facility] [id number]) Physical Therapy Assessment Goals Three Impairment activity intolerance Impairment LEFS score 44% Short Term Goal (STG) Improve LEFS score to at least 60%as measure of improved LE function and activity tolerance STG Duration 08/07/22 Rivet Heater Goal (LTG) Improve LEFS score to at least 75% as measure of improved LE function and activity tolerance LTG Duration 09/18/22 Two Impairment strength and flexibility impairments Short Term Goal (STG) Patient to be instructed in HEP of therapeutic exercises for strengthening, flexibility and stabilization of core STG Duration 07/21/22 Correction Goal (LTG) Patient to be independent and compliant with HEP and demonstrate improved strength and flexibility to WNL to allow her to do usual activities including playing in the yard, standing for work , taking walks LTG Duration 09/18/22 One Impairment right sided pain lumbar, hip, loraine/lateral LE Impairment 6/10 on pain scale Short Term Goal (STG) Decrease pain to no greater than 3/10 with all usual activitie STG Duration 07/21/22 Rivet Heater Goal (LTG) Decrease pain to no greater than 1-2/10 with all usual activities LTG Duration 09/18/22 Physical Therapy Plan Frequency and Duration Frequency of Treatment 2x/Week Duration of treatment (weeks) 12 Plan of Care Start Date 06/20/22 Plan of Care End Date 09/18/22 Therapeutic Interventions Therapeutic Interventions Home Exercise Program,Joint Mobilizations,Manual Therapy, Neuromuscular Re-education, Self-Care/Home Management, Sensory Integration,Soft Tissue Mobilization, Therapeutic Activities, Therapeutic Exercises Modalities Cold Pack/Ice Massage,Electric Stimulation,Hot Packs, Infrared Therapy,Iontophoresis ,Ultrasound Next Visit Focus/Plan Next Note Type Treatment Note Next Visit Plan Continue progression of strengthening and flexibility including trial single leg stand if asya. Manual therapy with massage stick, continue hip joint distraction followed by ball squeeze for stab. Consider prone hip ROM ex. Continue with moist heat if appears beneficial
--- NOTE | 2022-07-16 16:33 | PT.OTN ---
Current Diagnoses Pain in right hip (07/16/22) Pain in right leg (07/16/22) Physical Therapy Treatment Note PT-OP-A Visit Information Start: 06/20/22 08:06 Freq: Status: Active Protocol: Document 07/16/22 14:31 [facility] (Rec: 07/16/22 15:17 [facility] [id number]) Out-Patient Physical Therapy Visit Information Visit Information Visit Type Treatment Note Visit Start Time 14:34 Visit Stop Time 15:30 Total Visit Minutes 56 Visit Number 3 Evaluation Information Evaluation Date 06/20/22 PT-OP-B Current Condition Start: 06/20/22 08:06 Freq: Status: Active Protocol: Document 07/16/22 14:31 [facility] (Rec: 07/16/22 15:17 [facility] [id number]) Current Condition History of Current Condition Onset Date years Current Complaints right hip and LE pain History of Current Condition Reports gradual worsening of right hip and LE pain over the course of years. 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 Wears lift in left and orthtics bilaterally; only footwear she can wear orthotics in. Gradual worsening of pain in right LE. Sees chiropractor 2x/month to straighten me out , sometimes uses foam roller. Hasn't gone to the gym for a long time, doing a lot of body weight exercise. Stands most of the day for work. Doesn't wear same shoes every day; anything that allows her to wear her custom orthotics. Massage 1x/mo. Prior Treatments and Tests MRI 06/13/22: 1. Asymmetric moderate right hip joint osteoarthritis as above. 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 No evidence of avascular necrosis of femoral head. 2. Mild distal right gluteus medius and minimus tendinosis at their insertion on greater trochanter. No other muscle or tendon signal abnormality. 3. Suggestion of extensive superior anterior right hip labral tear at 1 to 3 o'clock position. Treatment Goals Patient/Caregiver Goals Decrease pain, play in yard, be able to walk without pain. PT-OP-C Subjective Start: 06/20/22 08:06 Freq: Status: Active Protocol: Document 07/16/22 14:31 [facility] (Rec: 07/16/22 15:17 [facility] [id number]) OP-PT Subjective Patient Comments Patient Comments Doing HEP helps some. Had hard weekend sitting and travelling a lot for wedding, not as much exercise. No pain meds today because wanted PT to see level of pain. Having cortisone injection 09/20/22. Dr. Hillman told her about labral tear, encouraged strengthening, pool exercise . PT-OP-G Mobility & Gait Start: 06/20/22 08:06 Freq: Status: Active Protocol: Document 06/20/22 14:29 [facility] (Rec: 06/26/22 16:19 [facility] [id number]) OP Gait Assessment Gait Gait Assistance Required: Independent Assistive Devices Assistive Device None Orthotic/Prosthetic Devices or Brace: Yes Gait Deviations General Gait Pattern Antalgic,Decreased Stride Length,Decreased Feet Clearance Factors Limiting Gait Function Factors Limiting Gait Function Decreased Sensation,Pain PT-OP-J Posture/Palpation/Skin Start: 06/20/22 08:06 Freq: Status: Active Protocol: Document 06/20/22 14:29 [facility] (Rec: 06/26/22 16:19 [facility] [id number]) Posture Evaluation Position Standing Head/C-Spine Posture Forward Head T-Spine Posture Increased Kyphosis L-Spine Posture Increased Lordosis Pelvis Posture Anteriorly Tilted Ankle/Foot Posture (L) Pronated,(R) Pronated Foot Arch (L) Low Arch,(R) Low Arch PT-OP-K Range of Motion Start: 06/20/22 08:06 Freq: Status: Active Protocol: Document 06/20/22 14:29 [facility] (Rec: 06/26/22 16:19 [facility] [id number]) Lumbar Spine Range of Motion Lumbar Spine Active Degrees Testing Position Standing Flexion 25 Extension 20 Rotation Left 40 Rotation Right 40 Lateral Flexion Left 35 Lateral Flexion Right 35 ROM Limitations Soft Tissue Tightness Hip Goniometric Range of Motion Hip Right Straight Leg Raise 55 Extension 5 Left Straight Leg Raise 60 Extension 10 PT-OP-L Special Tests Start: 06/20/22 08:06 Freq: Status: Active Protocol: Document 06/20/22 14:29 [facility] (Rec: 06/26/22 16:19 [facility] [id number]) Special Tests Hip Special Tests Anterior Labral Test Test Results positive right LELA Test Results negative PT-OP-M Strength Start: 06/20/22 08:06 Freq: Status: Active Protocol: Document 06/20/22 14:29 [facility] (Rec: 06/26/22 16:19 [facility] [id number]) Trunk Strength Trunk Manual Muscle Testing Flexion 4- Good- Extension 4- Good- Core Stabilization decreased activation of TrA Hip Strength Hip Manual Muscle Testing Right Flexion (L2) 4- Good- Extension (S1) 4- Good- Abduction 4- Good- Adduction 4 Good External Rotation 4- Good- Internal Rotation 4- Good- Left Flexion (L2) 4 Good Extension (S1) 4- Good- Abduction 4- Good- Adduction 4 Good External Rotation 4- Good- Internal Rotation 4 Good Knee Strength Knee Manual Muscle Testing Right Flexion (S2) 4 Good Extension (L3) 4 Good Left Flexion (S2) 5 Normal Extension (L3) 5 Normal PT-OP-Q Treatments Start: 06/20/22 08:06 Freq: Status: Active Protocol: Document 07/16/22 14:31 [facility] (Rec: 07/16/22 15:17 [facility] [id number]) Cardio Equipment Recumbent Stepper (Sci-Fit) Duration (Minutes) 10 Resistance 2 Seat Position 13 Other UE/LE first 4 min, LE's only, toward end reported pinching pain in right hi Therapeutic Exercises Supine Exercises self massage hip flex Reps/Minutes 2 min Comments tennis ball, with hip flex/ext , IR/ER self massage glutes, pir Supine Exercise Name with heel slide, hip ir/ER Reps/Minutes 3 min Comments tennis ball single leg bridging Reps/Minutes 10x Comments cues for level pelvis, gradual build of muscle tension bridge Reps/Minutes 10x5 Comments segmental, cues for longer hold ball squeeze Equipment Used green ball Reps/Minutes 10x Comments following joint mob Sidelying Exercises sidelying hip abd Reps/Minutes 10x Comments bottom leg straight, cues for core, keep leg parallel clam Reps/Minutes 10x5 Comments cues for core engagement, form , longer hold Standing Exercises sidestepping Equipment Used yellow band Reps/Minutes 10 ft x 2 Manual Therapy Treatment Soft Tissue Mobilization iliopsoas Mobilization Type Sustained Pressure Body Position 5 min tennis ball Body Location glutes, piriformis Body Position long sit Comments with heel slide and hip IR/ER; instructed patient in self masage IT band, quads Body Location HEP Joint Mobilizations right hip Direction long axis distraction Grade III Body Position Supine Reps/Duration 8 min Self-Care/Home Management Treatment Education Other Education reviewed Progress to single leg bridge, add SLS, longer hold with clamshell. PT-OP-R Modalities Start: 06/20/22 08:06 Freq: Status: Active Protocol: Document 07/16/22 14:31 [facility] (Rec: 07/16/22 15:26 [facility] [id number]) Hot Pack/Cold Pack Treatment Hot Pack Location right lateral hip, IT band, lateral quad Patient Position Sidelying Treatment Duration (minutes) 15 Patient Tolerance Good PT-OP-T Assessment and Plan Start: 06/20/22 08:06 Freq: Status: Active Protocol: Document 07/16/22 14:31 [facility] (Rec: 07/16/22 15:17 [facility] [id number]) Physical Therapy Assessment Impairments Impairments Activity Tolerance,Gait,Pain, ROM,Soft Tissue Mobility, Strength Goals Three Impairment activity intolerance Impairment LEFS score 44% Short Term Goal (STG) Improve LEFS score to at least 60%as measure of improved LE function and activity tolerance STG Duration 08/07/22 Intermediate Goal (LTG) Improve LEFS score to at least 75% as measure of improved LE function and activity tolerance LTG Duration 09/18/22 Two Impairment strength and flexibility impairments Short Term Goal (STG) Patient to be instructed in HEP of therapeutic exercises for strengthening, flexibility and stabilization of core STG Duration 07/21/22 Intermediate Goal (LTG) Patient to be independent and compliant with HEP and demonstrate improved strength and flexibility to WNL to allow her to do usual activities including playing in the yard, standing for work , taking walks LTG Duration 09/18/22 One Impairment right sided pain lumbar, hip, loraine/lateral LE Impairment 6/10 on pain scale Short Term Goal (STG) Decrease pain to no greater than 3/10 with all usual activitie STG Duration 07/21/22 Speech Assistant Goal (LTG) Decrease pain to no greater than 1-2/10 with all usual activities LTG Duration 09/18/22 Physical Therapy Plan Frequency and Duration Frequency of Treatment 2x/Week Duration of treatment (weeks) 12 Plan of Care Start Date 06/20/22 Plan of Care End Date 09/18/22 Therapeutic Interventions Therapeutic Interventions Home Exercise Program,Joint Mobilizations,Manual Therapy, Neuromuscular Re-education, Self-Care/Home Management, Sensory Integration,Soft Tissue Mobilization, Therapeutic Activities, Therapeutic Exercises Modalities Cold Pack/Ice Massage,Electric Stimulation,Hot Packs, Infrared Therapy,Iontophoresis ,Ultrasound Next Visit Focus/Plan Next Note Type Treatment Note Next Visit Plan Evaluate response to self- massage techniques shown today , progression of strengthening . Add hip flexor strengthening using therapy ball under legs as tolerated. Consider self inf mob hip with TB with active flexion. Continue manual techniques, progress strengthening as tolerated.
--- NOTE | 2022-07-19 16:00 | PT.OTN ---
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 Wears lift in left and orthtics bilaterally; only footwear she can wear orthotics in. Gradual worsening of pain in right LE. Sees chiropractor 2x/month to straighten me out , sometimes uses foam roller. Hasn't gone to the gym for a long time, doing a lot of body weight exercise. Stands most of the day for work. Doesn't wear same shoes every day; anything that allows her to wear her custom orthotics. Massage 1x/mo. Prior Treatments and Tests MRI 06/13/22: 1. Asymmetric moderate right hip joint osteoarthritis as above. 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 No evidence of avascular necrosis of femoral head. 2. Mild distal right gluteus medius and minimus tendinosis at their insertion on greater trochanter. No other muscle or tendon signal abnormality. 3. Suggestion of extensive superior anterior right hip labral tear at 1 to 3 o'clock position. Treatment Goals Patient/Caregiver Goals Decrease pain, play in yard, be able to walk without pain. PT-OP-C Subjective Start: 06/20/22 08:06 Freq: Status: Active Protocol: Document 07/19/22 15:19 SP (Rec: 07/19/22 16:21 SP [id number]) OP-PT Subjective Patient Comments Patient Comments Pt stated compliant with HEP, want to review. She said stood Wed 10 hrs and LB sore today. She reported good feedback response to self STMs but wants to review. PT-OP-G Mobility & Gait Start: 06/20/22 08:06 Freq: Status: Active Protocol: Document 06/20/22 14:29 SAK (Rec: 06/26/22 16:19 [facility] [id number]) OP Gait Assessment Gait Gait Assistance Required: Independent Assistive Devices Assistive Device None Orthotic/Prosthetic Devices or Brace: Yes Gait Deviations General Gait Pattern Antalgic,Decreased Stride Length,Decreased Feet Clearance Factors Limiting Gait Function Factors Limiting Gait Function Decreased Sensation,Pain PT-OP-J Posture/Palpation/Skin Start: 06/20/22 08:06 Freq: Status: Active Protocol: Document 06/20/22 14:29 [facility] (Rec: 06/26/22 16:19 [facility] [id number]) Posture Evaluation Position Standing Head/C-Spine Posture Forward Head T-Spine Posture Increased Kyphosis L-Spine Posture Increased Lordosis Pelvis Posture Anteriorly Tilted Ankle/Foot Posture (L) Pronated,(R) Pronated Foot Arch (L) Low Arch,(R) Low Arch PT-OP-K Range of Motion Start: 06/20/22 08:06 Freq: Status: Active Protocol: Document 06/20/22 14:29 SAK (Rec: 06/26/22 16:19 [facility] [id number]) Lumbar Spine Range of Motion Lumbar Spine Active Degrees Testing Position Standing Flexion 25 Extension 20 Rotation Left 40 Rotation Right 40 Lateral Flexion Left 35 Lateral Flexion Right 35 ROM Limitations Soft Tissue Tightness Hip Goniometric Range of Motion Hip Right Straight Leg Raise 55 Extension 5 Left Straight Leg Raise 60 Extension 10 PT-OP-L Special Tests Start: 06/20/22 08:06 Freq: Status: Active Protocol: Document 06/20/22 14:29 SAK (Rec: 06/26/22 16:19 SAK [id number]) Special Tests Hip Special Tests Anterior Labral Test Test Results positive right LELA Test Results negative PT-OP-M Strength Start: 06/20/22 08:06 Freq: Status: Active Protocol: Document 06/20/22 14:29 SAK (Rec: 06/26/22 16:19 SAK [id number]) Trunk Strength Trunk Manual Muscle Testing Flexion 4- Good- Extension 4- Good- Core Stabilization decreased activation of TrA Hip Strength Hip Manual Muscle Testing Right Flexion (L2) 4- Good- Extension (S1) 4- Good- Abduction 4- Good- Adduction 4 Good External Rotation 4- Good- Internal Rotation 4- Good- Left Flexion (L2) 4 Good Extension (S1) 4- Good- Abduction 4- Good- Adduction 4 Good External Rotation 4- Good- Internal Rotation 4 Good Knee Strength Knee Manual Muscle Testing Right Flexion (S2) 4 Good Extension (L3) 4 Good Left Flexion (S2) 5 Normal Extension (L3) 5 Normal PT-OP-Q Treatments Start: 06/20/22 08:06 Freq: Status: Active Protocol: Document 07/19/22 15:19 SP (Rec: 07/19/22 16:21 SP [id number]) Therapeutic Exercises Supine Exercises self massage hip flex Supine Exercise Name ? Reps/Minutes unsure how performed- review next tx Comments tennis ball, with hip flex/ext , IR/ER self massage glutes, pir Supine Exercise Name with heel slide, hip ir/ER- HEP reviewed good response Reps/Minutes 3 min Comments tennis ball- long sitting vs up on elbows single leg bridging Supine Exercise Name reviewed HEP Reps/Minutes 10x Comments cues for PPT, TA together and lift/lower slow bridge Supine Exercise Name segmental bridge- reviewed HEP Reps/Minutes 10x5 Comments cued PPT, slow 1 vertebra at time lift/ lower, cues for longer hold ball squeeze Supine Exercise Name reviewed HEP Equipment Used yellow small ball Reps/Minutes 10x Comments cued allow SI/post hips releas little for self mob. Sidelying Exercises reverse clamshell Sidelying Exercise Name reviewed HEP Side bilateral Reps/Minutes 5 x10 Comments cued TA, tolerant range ( limited ROM more on R than L) clam Sidelying Exercise Name reviewed HEP Reps/Minutes 10x5 Comments cued TA, PPT, longer hold at top lift tolerant, no LB arch Standing Exercises self STMs Standing Exercise Name TFL, Glut med, piriformis Side bilateral Reps/Minutes 2 min Comments good feedback response sidestepping Standing Exercise Name reviewed HEP Resistance TB #2 loop shins Reps/Minutes 10 ft x 2 Comments cued tall, TA, little bigger than normal step, clear trail LE leg pendulum Standing Exercise Name HEP reviewed Equipment Used contact rail, LE dangle off bottom step Reps/Minutes 30sec Comments cued level pelvis and stance LE on step stab engaged- good opp hip stance PT-OP-R Modalities Start: 06/20/22 08:06 Freq: Status: Active Protocol: Document 07/16/22 14:31 SAK (Rec: 07/16/22 15:26 SAK [id number]) Hot Pack/Cold Pack Treatment Hot Pack Location right lateral hip, IT band, lateral quad Patient Position Sidelying Treatment Duration (minutes) 15 Patient Tolerance Good PT-OP-T Assessment and Plan Start: 06/20/22 08:06 Freq: Status: Active Protocol: Document 07/19/22 15:19 SP (Rec: 07/19/22 16:21 SP [id number]) Physical Therapy Assessment Goals Three Impairment activity intolerance Impairment LEFS score 44% Short Term Goal (STG) Improve LEFS score to at least 60%as measure of improved LE function and activity tolerance STG Duration 08/07/22 Penitentiary Goal (LTG) Improve LEFS score to at least 75% as measure of improved LE function and activity tolerance LTG Duration 09/18/22 Two Impairment strength and flexibility impairments Short Term Goal (STG) Patient to be instructed in HEP of therapeutic exercises for strengthening, flexibility and stabilization of core STG Duration 07/21/22 Senior Marketing Analyst Goal (LTG) Patient to be independent and compliant with HEP and demonstrate improved strength and flexibility to WNL to allow her to do usual activities including playing in the yard, standing for work , taking walks LTG Duration 09/18/22 One Impairment right sided pain lumbar, hip, loraine/lateral LE Impairment 6/10 on pain scale Short Term Goal (STG) Decrease pain to no greater than 3/10 with all usual activitie STG Duration 07/21/22 Penitentiary Goal (LTG) Decrease pain to no greater than 1-2/10 with all usual activities LTG Duration 09/18/22 Assessment Summary Assessment Pt good feedback response to self STM review semi supine up on elbows/tall long sit and work application stand at wall . Pt better understanding proper form with HEP post cues . PRovided written comments on her HOs. Provided HOs and instructed added band walk and LE pendulum to HEP. Progress as Plan. Physical Therapy Plan Frequency and Duration Frequency of Treatment 2x/Week Duration of treatment (weeks) 12 Plan of Care Start Date 12/29/22 Plan of Care End Date 09/18/22 Therapeutic Interventions Therapeutic Interventions Home Exercise Program,Joint Mobilizations,Manual Therapy, Neuromuscular Re-education, Self-Care/Home Management, Sensory Integration,Soft Tissue Mobilization, Therapeutic Activities, Therapeutic Exercises Modalities Cold Pack/Ice Massage,Electric Stimulation,Hot Packs, Infrared Therapy,Iontophoresis ,Ultrasound Next Visit Focus/Plan Next Note Type Treatment Note Next Visit Plan Continue core/hip abd HEP. Next tx; Add hip flexor strengthening using therapy ball under legs as tolerated. Consider self inf mob hip with TB with active flexion. Continue manual techniques, progress strengthening as tolerated.
--- NOTE | 2022-07-23 08:15 | PT.OTN ---
Current Diagnoses Pain in right hip (07/23/22) Pain in right leg (07/23/22) Physical Therapy Treatment Note PT-OP-A Visit Information Start: 06/20/22 08:06 Freq: Status: Active Protocol: Document 07/23/22 07:31 SP (Rec: 07/23/22 08:19 SP [id number]) Out-Patient Physical Therapy Visit Information Visit Information Visit Type Treatment Note Visit Start Time 07:31 Visit Stop Time 08:15 Total Visit Minutes 44 Visit Number 5 Number of SKY [employer] YARDER Visits 2 Evaluation Information Evaluation Date 06/20/22 PT-OP-B Current Condition Start: 06/20/22 08:06 Freq: Status: Active Protocol: Document 07/16/22 14:31 SAK (Rec: 07/16/22 15:17 SAK [id number]) Current Condition History of Current Condition Onset Date years Current Complaints right hip and LE pain History of Current Condition Reports gradual worsening of right hip and LE pain over the course of years. 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 Wears lift in left and orthtics bilaterally; only footwear she can wear orthotics in. Gradual worsening of pain in right LE. Sees chiropractor 2x/month to straighten me out , sometimes uses foam roller. Hasn't gone to the gym for a long time, doing a lot of body weight exercise. Stands most of the day for work. Doesn't wear same shoes every day; anything that allows her to wear her custom orthotics. Massage 1x/mo. Prior Treatments and Tests MRI 06/13/22: 1. Asymmetric moderate right hip joint osteoarthritis as above. 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 No evidence of avascular necrosis of femoral head. 2. Mild distal right gluteus medius and minimus tendinosis at their insertion on greater trochanter. No other muscle or tendon signal abnormality. 3. Suggestion of extensive superior anterior right hip labral tear at 1 to 3 o'clock position. Treatment Goals Patient/Caregiver Goals Decrease pain, play in yard, be able to walk without pain. PT-OP-C Subjective Start: 06/20/22 08:06 Freq: Status: Active Protocol: Document 07/23/22 07:31 SP (Rec: 07/23/22 08:19 SP [id number]) OP-PT Subjective Patient Comments Patient Comments Pt reported little sore after last tx but feel PT helping, compliant with HEP given. PT-OP-G Mobility & Gait Start: 06/20/22 08:06 Freq: Status: Active Protocol: Document 06/20/22 14:29 SAK (Rec: 06/26/22 16:19 SAK [id number]) OP Gait Assessment Gait Gait Assistance Required: Independent Assistive Devices Assistive Device None Orthotic/Prosthetic Devices or Brace: Yes Gait Deviations General Gait Pattern Antalgic,Decreased Stride Length,Decreased Feet Clearance Factors Limiting Gait Function Factors Limiting Gait Function Decreased Sensation,Pain PT-OP-J Posture/Palpation/Skin Start: 06/20/22 08:06 Freq: Status: Active Protocol: Document 06/20/22 14:29 SAK (Rec: 06/26/22 16:19 [facility] [id number]) Posture Evaluation Position Standing Head/C-Spine Posture Forward Head T-Spine Posture Increased Kyphosis L-Spine Posture Increased Lordosis Pelvis Posture Anteriorly Tilted Ankle/Foot Posture (L) Pronated,(R) Pronated Foot Arch (L) Low Arch,(R) Low Arch PT-OP-K Range of Motion Start: 06/20/22 08:06 Freq: Status: Active Protocol: Document 06/20/22 14:29 SAK (Rec: 06/26/22 16:19 [facility] [id number]) Lumbar Spine Range of Motion Lumbar Spine Active Degrees Testing Position Standing Flexion 25 Extension 20 Rotation Left 40 Rotation Right 40 Lateral Flexion Left 35 Lateral Flexion Right 35 ROM Limitations Soft Tissue Tightness Hip Goniometric Range of Motion Hip Right Straight Leg Raise 55 Extension 5 Left Straight Leg Raise 60 Extension 10 PT-OP-L Special Tests Start: 06/20/22 08:06 Freq: Status: Active Protocol: Document 06/20/22 14:29 SAK (Rec: 06/26/22 16:19 SAK [id number]) Special Tests Hip Special Tests Anterior Labral Test Test Results positive right LELA Test Results negative PT-OP-M Strength Start: 06/20/22 08:06 Freq: Status: Active Protocol: Document 06/20/22 14:29 SAK (Rec: 06/26/22 16:19 SAK [id number]) Trunk Strength Trunk Manual Muscle Testing Flexion 4- Good- Extension 4- Good- Core Stabilization decreased activation of TrA Hip Strength Hip Manual Muscle Testing Right Flexion (L2) 4- Good- Extension (S1) 4- Good- Abduction 4- Good- Adduction 4 Good External Rotation 4- Good- Internal Rotation 4- Good- Left Flexion (L2) 4 Good Extension (S1) 4- Good- Abduction 4- Good- Adduction 4 Good External Rotation 4- Good- Internal Rotation 4 Good Knee Strength Knee Manual Muscle Testing Right Flexion (S2) 4 Good Extension (L3) 4 Good Left Flexion (S2) 5 Normal Extension (L3) 5 Normal PT-OP-Q Treatments Start: 06/20/22 08:06 Freq: Status: Active Protocol: Document 07/23/22 07:31 SP (Rec: 07/23/22 08:19 SP [id number]) Gym Equipment Shuttle Recovery Unilateral Squats Resistance 37 Shuttle Recovery Platform Stable Reps/Time x15 Bilateral Squats Details cues for alignment and muscle activation Resistance 62 Shuttle Recovery Platform Stable Reps/Time x20 Therapeutic Exercises Supine Exercises stretching: Supine Exercise Name hip flexor LE off table, adductor w/ strap, fig 4 (ft inside opp LE) Side right Reps/Minutes 30 x2 Comments cued maintain level pelvis, no LB arch Sitting Exercises Stretching Sitting Exercise Name hip IR/ ER (piriformis), HS Side bilateral Reps/Minutes 30-60 Comments limited R hip IR and ER range. eccentric squat taps Sitting Exercise Name in PT AROM post stretching Reps/Minutes x10 Comments good form, little crepitis B knees painfree Standing Exercises sidestepping Standing Exercise Name reviewed HEP: fwd,bwd/ lateral Resistance TB #2 loop shins Reps/Minutes 10 ft x 2 Comments cued tall, TA, little bigger than normal step, clear trail LE leg pendulum Standing Exercise Name HEP reviewed Equipment Used contact rail, LE dangle off bottom step Reps/Minutes 30sec Comments cued level pelvis and stance LE on step stab engaged- good opp hip stance Manual Therapy Treatment Soft Tissue Mobilization IT band, quads Body Location ITB, prox quad, mid/prox adductors Mobilization Type Instrument Assisted,Myofascial Release,Strumming Intensity/Depth Moderate Body Position Hooklying Comments manual and instruction self use rolling pin. Joint Mobilizations right hip Direction long axis distraction and use strap Grade II Body Position Supine PT-OP-R Modalities Start: 06/20/22 08:06 Freq: Status: Active Protocol: Document 07/16/22 14:31 SAK (Rec: 07/16/22 15:26 SAK [id number]) Hot Pack/Cold Pack Treatment Hot Pack Location right lateral hip, IT band, lateral quad Patient Position Sidelying Treatment Duration (minutes) 15 Patient Tolerance Good PT-OP-T Assessment and Plan Start: 06/20/22 08:06 Freq: Status: Active Protocol: Document 07/23/22 07:31 SP (Rec: 07/23/22 08:19 SP [id number]) Physical Therapy Assessment Goals Three Impairment activity intolerance Impairment LEFS score 44% Short Term Goal (STG) Improve LEFS score to at least 60%as measure of improved LE function and activity tolerance STG Duration 08/07/22 Half-Way Goal (LTG) Improve LEFS score to at least 75% as measure of improved LE function and activity tolerance LTG Duration 09/18/22 Two Impairment strength and flexibility impairments Short Term Goal (STG) Patient to be instructed in HEP of therapeutic exercises for strengthening, flexibility and stabilization of core STG Duration 07/21/22 Half-Way Goal (LTG) Patient to be independent and compliant with HEP and demonstrate improved strength and flexibility to WNL to allow her to do usual activities including playing in the yard, standing for work , taking walks LTG Duration 09/18/22 One Impairment right sided pain lumbar, hip, loraine/lateral LE Impairment 6/10 on pain scale Short Term Goal (STG) Decrease pain to no greater than 3/10 with all usual activitie STG Duration 07/21/22 Half-Way Goal (LTG) Decrease pain to no greater than 1-2/10 with all usual activities LTG Duration 09/18/22 Assessment Summary Assessment Pt improved hip ER and hip extension post Fig 4 erika stretching and manual. Good response to hip inferior mob w / strap and added stretching. Good feedback effort band walk no pain. Physical Therapy Plan Frequency and Duration Frequency of Treatment 2x/Week Duration of treatment (weeks) 12 Plan of Care Start Date 06/20/22 Plan of Care End Date 09/18/22 Therapeutic Interventions Therapeutic Interventions Home Exercise Program,Joint Mobilizations,Manual Therapy, Neuromuscular Re-education, Self-Care/Home Management, Sensory Integration,Soft Tissue Mobilization, Therapeutic Activities, Therapeutic Exercises Modalities Cold Pack/Ice Massage,Electric Stimulation,Hot Packs, Infrared Therapy,Iontophoresis ,Ultrasound Next Visit Focus/Plan Next Note Type Treatment Note Next Visit Plan Continue core/hip abd HEP. Next tx recheck STMs adductor and stretching, supine abd HEP . Consider self inf mob hip with TB with active flexion. Continue manual techniques, progress strengthening as tolerated.
--- NOTE | 2022-08-07 14:38 | PT.OTN ---
Current Diagnoses Pain in right hip (08/07/22) Pain in right leg (08/07/22) Physical Therapy Treatment Note PT-OP-A Visit Information Start: 06/20/22 08:06 Freq: Status: Active Protocol: Document 08/07/22 13:50 SAK (Rec: 08/07/22 14:37 SAK [id number]) Out-Patient Physical Therapy Visit Information Visit Information Visit Type Treatment Note Visit Start Time 13:50 Visit Stop Time 14:45 Total Visit Minutes 55 Visit Number 7 Number of TELECOMM[employer] FACILITY EXAMINER Visits 0 Evaluation Information Evaluation Date 06/20/22 PT-OP-B Current Condition Start: 06/20/22 08:06 Freq: Status: Active Protocol: Document 07/16/22 14:31 SAK (Rec: 07/16/22 15:17 SAK [id number]) Current Condition History of Current Condition Onset Date years Current Complaints right hip and LE pain History of Current Condition Reports gradual worsening of right hip and LE pain over the course of years. 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 Wears lift in left and orthtics bilaterally; only footwear she can wear orthotics in. Gradual worsening of pain in right LE. Sees chiropractor 2x/month to straighten me out , sometimes uses foam roller. Hasn't gone to the gym for a long time, doing a lot of body weight exercise. Stands most of the day for work. Doesn't wear same shoes every day; anything that allows her to wear her custom orthotics. Massage 1x/mo. Prior Treatments and Tests MRI 06/13/22: 1. Asymmetric moderate right hip joint osteoarthritis as above. 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 No evidence of avascular necrosis of femoral head. 2. Mild distal right gluteus medius and minimus tendinosis at their insertion on greater trochanter. No other muscle or tendon signal abnormality. 3. Suggestion of extensive superior anterior right hip labral tear at 1 to 3 o'clock position. Treatment Goals Patient/Caregiver Goals Decrease pain, play in yard, be able to walk without pain. PT-OP-C Subjective Start: 06/20/22 08:06 Freq: Status: Active Protocol: Document 08/07/22 13:50 SAK (Rec: 08/07/22 14:37 [facility] [id number]) OP-PT Subjective Patient Comments Patient Comments Thinks Meloxicam helping . Went to [place] and was able to exercise in the pool x1 wk which felt helpful. Has a swimsuit on order, going to talk with Tomasa Jennings at [facility] regarding personal training in [place]. Less compliance to HEP but will resume now home. Patient Reported Progress Improving PT-OP-G Mobility & Gait Start: 06/20/22 08:06 Freq: Status: Active Protocol: Document 06/20/22 14:29 [facility] (Rec: 06/26/22 16:19 [facility] [id number]) OP Gait Assessment Gait Gait Assistance Required: Independent Assistive Devices Assistive Device None Orthotic/Prosthetic Devices or Brace: Yes Gait Deviations General Gait Pattern Antalgic,Decreased Stride Length,Decreased Feet Clearance Factors Limiting Gait Function Factors Limiting Gait Function Decreased Sensation,Pain PT-OP-J Posture/Palpation/Skin Start: 06/20/22 08:06 Freq: Status: Active Protocol: Document 06/20/22 14:29 [facility] (Rec: 06/26/22 16:19 [facility] [id number]) Posture Evaluation Position Standing Head/C-Spine Posture Forward Head T-Spine Posture Increased Kyphosis L-Spine Posture Increased Lordosis Pelvis Posture Anteriorly Tilted Ankle/Foot Posture (L) Pronated,(R) Pronated Foot Arch (L) Low Arch,(R) Low Arch PT-OP-K Range of Motion Start: 06/20/22 08:06 Freq: Status: Active Protocol: Document 06/20/22 14:29 [facility] (Rec: 06/26/22 16:19 [facility] [id number]) Lumbar Spine Range of Motion Lumbar Spine Active Degrees Testing Position Standing Flexion 25 Extension 20 Rotation Left 40 Rotation Right 40 Lateral Flexion Left 35 Lateral Flexion Right 35 ROM Limitations Soft Tissue Tightness Hip Goniometric Range of Motion Hip Right Straight Leg Raise 55 Extension 5 Left Straight Leg Raise 60 Extension 10 PT-OP-L Special Tests Start: 06/20/22 08:06 Freq: Status: Active Protocol: Document 06/20/22 14:29 [facility] (Rec: 06/26/22 16:19 [facility] [id number]) Special Tests Hip Special Tests Anterior Labral Test Test Results positive right LELA Test Results negative PT-OP-M Strength Start: 06/20/22 08:06 Freq: Status: Active Protocol: Document 06/20/22 14:29 SAK (Rec: 06/26/22 16:19 SAK [id number]) Trunk Strength Trunk Manual Muscle Testing Flexion 4- Good- Extension 4- Good- Core Stabilization decreased activation of TrA Hip Strength Hip Manual Muscle Testing Right Flexion (L2) 4- Good- Extension (S1) 4- Good- Abduction 4- Good- Adduction 4 Good External Rotation 4- Good- Internal Rotation 4- Good- Left Flexion (L2) 4 Good Extension (S1) 4- Good- Abduction 4- Good- Adduction 4 Good External Rotation 4- Good- Internal Rotation 4 Good Knee Strength Knee Manual Muscle Testing Right Flexion (S2) 4 Good Extension (L3) 4 Good Left Flexion (S2) 5 Normal Extension (L3) 5 Normal PT-OP-Q Treatments Start: 06/20/22 08:06 Freq: Status: Active Protocol: Document 08/07/22 13:50 SAK (Rec: 08/07/22 14:37 [facility] [id number]) Cardio Equipment Recumbent Stepper (Sci-Fit) Duration (Minutes) 5 Resistance 2 Seat Position 13 Other UE/LE , cues for core, alignment Gym Equipment Shuttle Recovery Unilateral Squats Resistance 37 Shuttle Recovery Platform Stable Reps/Time x15 Bilateral Squats Details cues for alignment and muscle activation Resistance 62 Shuttle Recovery Platform Stable Reps/Time x20 Therapeutic Exercises Supine Exercises stretching: Supine Exercise Name hip flexor LE off table, adductor w/ strap, fig 4 (ft inside opp LE) Side right Reps/Minutes 30 x2 Comments cued maintain level pelvis, no LB arch self massage hip flex Supine Exercise Name ? Reps/Minutes unsure how performed- review next tx Comments tennis ball, with hip flex/ext , IR/ER self massage glutes, pir Supine Exercise Name with heel slide, hip ir/ER- HEP reviewed good response Reps/Minutes 3 min Comments tennis ball- long sitting vs up on elbows single leg bridging Supine Exercise Name reviewed HEP Reps/Minutes 10x Comments cues for PPT, TA together and lift/lower slow bridge Supine Exercise Name segmental bridge- reviewed HEP Reps/Minutes 10x5 Comments cued PPT, slow 1 vertebra at time lift/ lower, cues for longer hold Sitting Exercises Stretching Sitting Exercise Name hip IR/ ER (piriformis), HS Side bilateral Reps/Minutes 30-60 Comments limited R hip IR and ER range. eccentric squat taps Sitting Exercise Name in PT AROM post stretching Reps/Minutes x10 Comments cues for form, use of mirror for visual feedback due to Hip IR Standing Exercises sidestepping Standing Exercise Name reviewed HEP: fwd,bwd/ lateral Resistance TB #2 loop shins Reps/Minutes 10 ft x 2 Comments cued tall, TA, little bigger than normal step, clear trail LE Manual Therapy Treatment Soft Tissue Mobilization IT band, quads Body Location ITB, prox quad, mid/prox adductors Mobilization Type Instrument Assisted,Myofascial Release,Strumming Intensity/Depth Moderate Body Position Hooklying Comments manual and instruction self use rolling pin. Joint Mobilizations right hip Direction long axis distraction and use strap Grade II Body Position Supine PT-OP-R Modalities Start: 06/20/22 08:06 Freq: Status: Active Protocol: Document 08/07/22 13:50 SAK (Rec: 08/07/22 14:38 [facility] [id number]) Hot Pack/Cold Pack Treatment Hot Pack Location right lateral hip, IT band, lateral quad Patient Position Sidelying Treatment Duration (minutes) 15 Patient Tolerance Good PT-OP-T Assessment and Plan Start: 06/20/22 08:06 Freq: Status: Active Protocol: Document 08/07/22 13:50 SAK (Rec: 08/07/22 14:37 [facility] [id number]) Physical Therapy Assessment Goals Three Impairment activity intolerance Impairment LEFS score 44% Short Term Goal (STG) Improve LEFS score to at least 60%as measure of improved LE function and activity tolerance STG Duration 08/07/22 [employer] Worker Goal (LTG) Improve LEFS score to at least 75% as measure of improved LE function and activity tolerance LTG Duration 09/18/22 Two Impairment strength and flexibility impairments Short Term Goal (STG) Patient to be instructed in HEP of therapeutic exercises for strengthening, flexibility and stabilization of core STG Duration 07/21/22 [employer] Worker Goal (LTG) Patient to be independent and compliant with HEP and demonstrate improved strength and flexibility to WNL to allow her to do usual activities including playing in the yard, standing for work , taking walks LTG Duration 09/18/22 One Impairment right sided pain lumbar, hip, loraine/lateral LE Impairment 6/10 on pain scale Short Term Goal (STG) Decrease pain to no greater than 3/10 with all usual activitie STG Duration 07/21/22 [employer] Worker Goal (LTG) Decrease pain to no greater than 1-2/10 with all usual activities LTG Duration 09/18/22 Progress Towards Goals Progress Towards Goals Progressing Toward Goals Assessment Summary Assessment Patient able to do all exercises without c/o pain, states she can feel it but not painful. Improving understanding of use of tools for self-massage. Aquatic exercise helpful. Benefits from use of mirror for visual feedback with squat Physical Therapy Plan Frequency and Duration Frequency of Treatment 2x/Week Duration of treatment (weeks) 12 Plan of Care Start Date 06/20/22 Plan of Care End Date 09/18/22 Therapeutic Interventions Therapeutic Interventions Home Exercise Program,Joint Mobilizations,Manual Therapy, Neuromuscular Re-education, Self-Care/Home Management, Sensory Integration,Soft Tissue Mobilization, Therapeutic Activities, Therapeutic Exercises Modalities Cold Pack/Ice Massage,Electric Stimulation,Hot Packs, Infrared Therapy,Iontophoresis ,Ultrasound Next Visit Focus/Plan Next Note Type Treatment Note Next Visit Plan Progression of core and hip strengthening, consider use of therapy ball for roll outs, LTR, heel dig. Consider self inf mob hip with TB with active flexion. Continue manual techniques, progress strengthening as tolerated.
--- NOTE | 2022-08-13 16:29 | PT.OTN ---
Current Diagnoses Pain in right hip (08/13/22) Pain in right leg (08/13/22) Physical Therapy Treatment Note PT-OP-A Visit Information Start: 06/20/22 08:06 Freq: Status: Active Protocol: Document 08/13/22 15:21 SAK (Rec: 08/13/22 16:29 [facility] [id number]) Out-Patient Physical Therapy Visit Information Visit Information Visit Type Treatment Note Visit Start Time 15:21 Visit Stop Time 16:16 Total Visit Minutes 55 Visit Number 8 Number of TERMINAL CARMAN Visits 0 Evaluation Information Evaluation Date 06/20/22 PT-OP-B Current Condition Start: 06/20/22 08:06 Freq: Status: Active Protocol: Document 07/16/22 14:31 SAK (Rec: 07/16/22 15:17 SAK [id number]) Current Condition History of Current Condition Onset Date years Current Complaints right hip and LE pain History of Current Condition Reports gradual worsening of right hip and LE pain over the course of years. 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 Wears lift in left and orthtics bilaterally; only footwear she can wear orthotics in. Gradual worsening of pain in right LE. Sees chiropractor 2x/month to straighten me out , sometimes uses foam roller. Hasn't gone to the gym for a long time, doing a lot of body weight exercise. Stands most of the day for work. Doesn't wear same shoes every day; anything that allows her to wear her custom orthotics. Massage 1x/mo. Prior Treatments and Tests MRI 06/13/22: 1. Asymmetric moderate right hip joint osteoarthritis as above. 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 No evidence of avascular necrosis of femoral head. 2. Mild distal right gluteus medius and minimus tendinosis at their insertion on greater trochanter. No other muscle or tendon signal abnormality. 3. Suggestion of extensive superior anterior right hip labral tear at 1 to 3 o'clock position. Treatment Goals Patient/Caregiver Goals Decrease pain, play in yard, be able to walk without pain. PT-OP-C Subjective Start: 06/20/22 08:06 Freq: Status: Active Protocol: Document 08/13/22 15:21 SAK (Rec: 08/13/22 16:29 [facility] [id number]) OP-PT Subjective Patient Comments Patient Comments States did a lot of walking Friday at the market then went bowling Friday, increased pain soreness, and tightness. Walking worse than bowling. Low compliance to HEP. PT-OP-G Mobility & Gait Start: 06/20/22 08:06 Freq: Status: Active Protocol: Document 06/20/22 14:29 [facility] (Rec: 06/26/22 16:19 [facility] [id number]) OP Gait Assessment Gait Gait Assistance Required: Independent Assistive Devices Assistive Device None Orthotic/Prosthetic Devices or Brace: Yes Gait Deviations General Gait Pattern Antalgic,Decreased Stride Length,Decreased Feet Clearance Factors Limiting Gait Function Factors Limiting Gait Function Decreased Sensation,Pain PT-OP-J Posture/Palpation/Skin Start: 06/20/22 08:06 Freq: Status: Active Protocol: Document 06/20/22 14:29 [facility] (Rec: 06/26/22 16:19 [facility] [id number]) Posture Evaluation Position Standing Head/C-Spine Posture Forward Head T-Spine Posture Increased Kyphosis L-Spine Posture Increased Lordosis Pelvis Posture Anteriorly Tilted Ankle/Foot Posture (L) Pronated,(R) Pronated Foot Arch (L) Low Arch,(R) Low Arch PT-OP-K Range of Motion Start: 06/20/22 08:06 Freq: Status: Active Protocol: Document 06/20/22 14:29 [facility] (Rec: 06/26/22 16:19 [facility] [id number]) Lumbar Spine Range of Motion Lumbar Spine Active Degrees Testing Position Standing Flexion 25 Extension 20 Rotation Left 40 Rotation Right 40 Lateral Flexion Left 35 Lateral Flexion Right 35 ROM Limitations Soft Tissue Tightness Hip Goniometric Range of Motion Hip Right Straight Leg Raise 55 Extension 5 Left Straight Leg Raise 60 Extension 10 PT-OP-L Special Tests Start: 06/20/22 08:06 Freq: Status: Active Protocol: Document 06/20/22 14:29 [facility] (Rec: 06/26/22 16:19 [facility] [id number]) Special Tests Hip Special Tests Anterior Labral Test Test Results positive right LELA Test Results negative PT-OP-M Strength Start: 06/20/22 08:06 Freq: Status: Active Protocol: Document 06/20/22 14:29 [facility] (Rec: 06/26/22 16:19 [facility] [id number]) Trunk Strength Trunk Manual Muscle Testing Flexion 4- Good- Extension 4- Good- Core Stabilization decreased activation of TrA Hip Strength Hip Manual Muscle Testing Right Flexion (L2) 4- Good- Extension (S1) 4- Good- Abduction 4- Good- Adduction 4 Good External Rotation 4- Good- Internal Rotation 4- Good- Left Flexion (L2) 4 Good Extension (S1) 4- Good- Abduction 4- Good- Adduction 4 Good External Rotation 4- Good- Internal Rotation 4 Good Knee Strength Knee Manual Muscle Testing Right Flexion (S2) 4 Good Extension (L3) 4 Good Left Flexion (S2) 5 Normal Extension (L3) 5 Normal PT-OP-Q Treatments Start: 06/20/22 08:06 Freq: Status: Active Protocol: Document 08/13/22 15:21 [facility] (Rec: 08/13/22 16:29 [facility] [id number]) Cardio Equipment Recumbent Stepper (Sci-Fit) Duration (Minutes) 5 Resistance 2 Seat Position 15 Other UE/LE , cues for core, alignment Gym Equipment Cable Column (Body Solid) hip abd Resistance 30 Reps/Time 10x2 hip add Resistance 30 Reps/Time 10x2 Shuttle Recovery Unilateral Squats Resistance 37 Shuttle Recovery Platform Stable Reps/Time 10x2 Bilateral Squats Details cues for alignment and muscle activation Resistance 75 Shuttle Recovery Platform Stable Reps/Time x20 Therapeutic Exercises Supine Exercises stretching: Supine Exercise Name hip flexor LE off table, adductor w/ strap, fig 4 (ft inside opp LE) Side right Reps/Minutes 30 x2 Comments cued maintain level pelvis, no LB arch single leg bridging Supine Exercise Name reviewed HEP Reps/Minutes 10x Comments cues for PPT, TA together and lift/lower slow bridge Supine Exercise Name segmental bridge- reviewed HEP Reps/Minutes 10x5 Comments cued PPT, slow 1 vertebra at time lift/ lower, cues for longer hold Sitting Exercises Stretching Sitting Exercise Name hip IR/ ER (piriformis), HS Side bilateral Reps/Minutes 30-60 Comments limited R hip IR and ER range. Standing Exercises sidestepping Standing Exercise Name reviewed HEP: fwd,bwd/ lateral Resistance TB #2 loop shins Reps/Minutes 10 ft x 2 Comments cued tall, TA, little bigger than normal step, clear trail LE leg pendulum Standing Exercise Name HEP reviewed Resistance 4# Equipment Used contact rail, LE dangle off bottom step Reps/Minutes 30sec Comments cued level pelvis and stance LE on step stab engaged- good opp hip stance Manual Therapy Treatment Soft Tissue Mobilization IT band, quads Body Location ITB, prox quad, mid/prox adductors Mobilization Type Instrument Assisted,Myofascial Release,Strumming Intensity/Depth Moderate Body Position Hooklying Comments manual and instruction self use rolling pin. Joint Mobilizations right hip Direction long axis distraction and use strap Grade II Body Position Supine PT-OP-R Modalities Start: 06/20/22 08:06 Freq: Status: Active Protocol: Document 08/13/22 15:21 [facility] (Rec: 08/13/22 16:29 [facility] [id number]) Hot Pack/Cold Pack Treatment Hot Pack Location right lateral hip, IT band, lateral quad Patient Position Sidelying Treatment Duration (minutes) 15 Patient Tolerance Good PT-OP-T Assessment and Plan Start: 06/20/22 08:06 Freq: Status: Active Protocol: Document 08/13/22 15:21 [facility] (Rec: 08/13/22 16:29 [facility] [id number]) Physical Therapy Assessment Goals Three Impairment activity intolerance Impairment LEFS score 44% Short Term Goal (STG) Improve LEFS score to at least 60%as measure of improved LE function and activity tolerance STG Duration 08/07/22 Pe[employer]aker Goal (LTG) Improve LEFS score to at least 75% as measure of improved LE function and activity tolerance LTG Duration 09/18/22 Two Impairment strength and flexibility impairments Short Term Goal (STG) Patient to be instructed in HEP of therapeutic exercises for strengthening, flexibility and stabilization of core STG Duration 07/21/22 [employer]aker Goal (LTG) Patient to be independent and compliant with HEP and demonstrate improved strength and flexibility to WNL to allow her to do usual activities including playing in the yard, standing for work , taking walks LTG Duration 09/18/22 One Impairment right sided pain lumbar, hip, loraine/lateral LE Impairment 6/10 on pain scale Short Term Goal (STG) Decrease pain to no greater than 3/10 with all usual activitie STG Duration 07/21/22 [facility] Goal (LTG) Decrease pain to no greater than 1-2/10 with all usual activities LTG Duration 09/18/22 Progress Towards Goals Progress Towards Goals Progressing Toward Goals Assessment Summary Assessment Able to increase shuttle leg press to 75#, added Body Solid hip ad and abd with good tolerance. Demonstrated hip distraction with theraband and plan to educate patient next session. Physical Therapy Plan Frequency and Duration Frequency of Treatment 2x/Week Duration of treatment (weeks) 12 Plan of Care Start Date 06/20/22 Plan of Care End Date 09/18/22 Therapeutic Interventions Therapeutic Interventions Home Exercise Program,Joint Mobilizations,Manual Therapy, Neuromuscular Re-education, Self-Care/Home Management, Sensory Integration,Soft Tissue Mobilization, Therapeutic Activities, Therapeutic Exercises Modalities Cold Pack/Ice Massage,Electric Stimulation,Hot Packs, Infrared Therapy,Iontophoresis ,Ultrasound Next Visit Focus/Plan Next Note Type Treatment Note Next Visit Plan Progression of core and hip strengthening, consider use of therapy ball for roll outs, LTR, heel dig. Consider self inf mob hip with TB with active flexion. Continue manual techniques, progress strengthening as tolerated.
--- NOTE | 2022-08-19 11:15 | PT.OTN ---
Current Diagnoses Pain in right hip (08/19/22) Pain in right leg (08/19/22) Physical Therapy Treatment Note PT-OP-A Visit Information Start: 06/20/22 08:06 Freq: Status: Active Protocol: Document 08/19/22 10:37 SP (Rec: 08/19/22 11:37 SP [id number]) Out-Patient Physical Therapy Visit Information Visit Information Visit Type Treatment Note Visit Start Time 10:37 Visit Stop Time 11:14 Total Visit Minutes 38 Visit Number 10 Number of CRITICAL CARE CNS Visits 1 Evaluation Information Evaluation Date 06/20/22 PT-OP-B Current Condition Start: 06/20/22 08:06 Freq: Status: Active Protocol: Document 07/16/22 14:31 SAK (Rec: 07/16/22 15:17 SAK [id number]) Current Condition History of Current Condition Onset Date years Current Complaints right hip and LE pain History of Current Condition Reports gradual worsening of right hip and LE pain over the course of years. 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 Wears lift in left and orthtics bilaterally; only footwear she can wear orthotics in. Gradual worsening of pain in right LE. Sees chiropractor 2x/month to straighten me out , sometimes uses foam roller. Hasn't gone to the gym for a long time, doing a lot of body weight exercise. Stands most of the day for work. Doesn't wear same shoes every day; anything that allows her to wear her custom orthotics. Massage 1x/mo. Prior Treatments and Tests MRI 06/13/22: 1. Asymmetric moderate right hip joint osteoarthritis as above. 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 No evidence of avascular necrosis of femoral head. 2. Mild distal right gluteus medius and minimus tendinosis at their insertion on greater trochanter. No other muscle or tendon signal abnormality. 3. Suggestion of extensive superior anterior right hip labral tear at 1 to 3 o'clock position. Treatment Goals Patient/Caregiver Goals Decrease pain, play in yard, be able to walk without pain. PT-OP-C Subjective Start: 06/20/22 08:06 Freq: Status: Active Protocol: Document 08/19/22 10:37 SP (Rec: 08/19/22 11:37 SP [id number]) OP-PT Subjective Patient Comments Patient Comments Pt reports sore after last tx, staring in pool 1:1 with aquatic movement staff. She had to lift heavy things last night pipes burst and needed to get to things. PT-OP-G Mobility & Gait Start: 06/20/22 08:06 Freq: Status: Active Protocol: Document 06/20/22 14:29 [facility] (Rec: 06/26/22 16:19 [facility] [id number]) OP Gait Assessment Gait Gait Assistance Required: Independent Assistive Devices Assistive Device None Orthotic/Prosthetic Devices or Brace: Yes Gait Deviations General Gait Pattern Antalgic,Decreased Stride Length,Decreased Feet Clearance Factors Limiting Gait Function Factors Limiting Gait Function Decreased Sensation,Pain PT-OP-J Posture/Palpation/Skin Start: 06/20/22 08:06 Freq: Status: Active Protocol: Document 06/20/22 14:29 [facility] (Rec: 06/26/22 16:19 [facility] [id number]) Posture Evaluation Position Standing Head/C-Spine Posture Forward Head T-Spine Posture Increased Kyphosis L-Spine Posture Increased Lordosis Pelvis Posture Anteriorly Tilted Ankle/Foot Posture (L) Pronated,(R) Pronated Foot Arch (L) Low Arch,(R) Low Arch PT-OP-K Range of Motion Start: 06/20/22 08:06 Freq: Status: Active Protocol: Document 06/20/22 14:29 [facility] (Rec: 06/26/22 16:19 [facility] [id number]) Lumbar Spine Range of Motion Lumbar Spine Active Degrees Testing Position Standing Flexion 25 Extension 20 Rotation Left 40 Rotation Right 40 Lateral Flexion Left 35 Lateral Flexion Right 35 ROM Limitations Soft Tissue Tightness Hip Goniometric Range of Motion Hip Right Straight Leg Raise 55 Extension 5 Left Straight Leg Raise 60 Extension 10 PT-OP-L Special Tests Start: 06/20/22 08:06 Freq: Status: Active Protocol: Document 06/20/22 14:29 [facility] (Rec: 06/26/22 16:19 [facility] [id number]) Special Tests Hip Special Tests Anterior Labral Test Test Results positive right LELA Test Results negative PT-OP-M Strength Start: 06/20/22 08:06 Freq: Status: Active Protocol: Document 06/20/22 14:29 [facility] (Rec: 06/26/22 16:19 SAK [id number]) Trunk Strength Trunk Manual Muscle Testing Flexion 4- Good- Extension 4- Good- Core Stabilization decreased activation of TrA Hip Strength Hip Manual Muscle Testing Right Flexion (L2) 4- Good- Extension (S1) 4- Good- Abduction 4- Good- Adduction 4 Good External Rotation 4- Good- Internal Rotation 4- Good- Left Flexion (L2) 4 Good Extension (S1) 4- Good- Abduction 4- Good- Adduction 4 Good External Rotation 4- Good- Internal Rotation 4 Good Knee Strength Knee Manual Muscle Testing Right Flexion (S2) 4 Good Extension (L3) 4 Good Left Flexion (S2) 5 Normal Extension (L3) 5 Normal PT-OP-Q Treatments Start: 06/20/22 08:06 Freq: Status: Active Protocol: Document 08/19/22 10:37 SP (Rec: 08/19/22 11:37 SP [id number]) Therapeutic Exercises Supine Exercises stretching: Supine Exercise Name hip flexor LE off table, adductor w/ strap, fig 4 (ft inside opp LE) Side right Resistance fig 4 Manual support contract relax increase hip ER ROM Reps/Minutes 30 x2 Comments cued maintain level pelvis, no LB arch Sitting Exercises Stretching Sitting Exercise Name hip IR/ ER (piriformis), HS Side bilateral Reps/Minutes 30-60 Comments limited R hip IR and ER range. Standing Exercises glut medius lifts Standing Exercise Name added to HEP Side bilateral Equipment Used off bottom step, HR support Reps/Minutes x10 Comments good feedback response, no pain just muscle tiring. self STMs Standing Exercise Name TFL, ITB, glut med Side bilateral Equipment Used rolling pin seated, ball wall TFL Reps/Minutes 2 min Comments good feedback response leg pendulum Standing Exercise Name HEP reviewed Resistance AROM Equipment Used contact rail, LE dangle off bottom step Reps/Minutes 30sec Comments cued level pelvis and stance LE on step stab engaged- good opp hip stance Manual Therapy Treatment Soft Tissue Mobilization iliopsoas Mobilization Type Myofascial Release,Sustained Pressure Body Position 5 min Joint Mobilizations right hip Joint strap Direction inferior, lateral Grade II Body Position Supine Comments pt states long axis stretch vs strap seemed same. Manual Techniques hip ER Comments contract relax R hip ER fig 4, improved increase ROM, isometric hip ER vs IR better. PT-OP-R Modalities Start: 06/20/22 08:06 Freq: Status: Active Protocol: Document 08/15/22 08:11 SAK (Rec: 08/15/22 09:00 SAK [id number]) Hot Pack/Cold Pack Treatment Hot Pack Location anterior hip Patient Position Sidelying Treatment Duration (minutes) 15 Patient Tolerance Good PT-OP-T Assessment and Plan Start: 06/20/22 08:06 Freq: Status: Active Protocol: Document 08/19/22 10:37 SP (Rec: 08/19/22 11:37 SP [id number]) Physical Therapy Assessment Goals Three Impairment activity intolerance Impairment LEFS score 44% Short Term Goal (STG) Improve LEFS score to at least 60%as measure of improved LE function and activity tolerance STG Duration 08/07/22 Automatic Pinsetter Adjuster Goal (LTG) Improve LEFS score to at least 75% as measure of improved LE function and activity tolerance LTG Duration 09/18/22 Two Impairment strength and flexibility impairments Short Term Goal (STG) Patient to be instructed in HEP of therapeutic exercises for strengthening, flexibility and stabilization of core STG Duration 07/21/22 Senior Care Goal (LTG) Patient to be independent and compliant with HEP and demonstrate improved strength and flexibility to WNL to allow her to do usual activities including playing in the yard, standing for work , taking walks LTG Duration 09/18/22 One Impairment right sided pain lumbar, hip, loraine/lateral LE Impairment 6/10 on pain scale Short Term Goal (STG) Decrease pain to no greater than 3/10 with all usual activitie STG Duration 07/21/22 Senior Care Goal (LTG) Decrease pain to no greater than 1-2/10 with all usual activities LTG Duration 09/18/22 Assessment Summary Assessment Pt good response to manual in increased AROM post contract relax, ed self STMs TFL ball wall and added glut med for strengthening support end tx. Physical Therapy Plan Frequency and Duration Frequency of Treatment 2x/Week Duration of treatment (weeks) 12 Plan of Care Start Date 06/20/22 Plan of Care End Date 09/18/22 Therapeutic Interventions Therapeutic Interventions Home Exercise Program,Joint Mobilizations,Manual Therapy, Neuromuscular Re-education, Self-Care/Home Management, Sensory Integration,Soft Tissue Mobilization, Therapeutic Activities, Therapeutic Exercises Modalities Cold Pack/Ice Massage,Electric Stimulation,Hot Packs, Infrared Therapy,Iontophoresis ,Ultrasound Next Visit Focus/Plan Next Note Type Treatment Note Next Visit Plan Recheck glut lifts added last tx. POC: Continue progression strengthening, core stab, flexibility, and manual techniques
--- NOTE | 2022-08-19 11:15 | PT.OTN ---
Current Diagnoses Pain in right hip (08/19/22) Pain in right leg (08/19/22) Physical Therapy Treatment Note PT-OP-A Visit Information Start: 06/20/22 08:06 Freq: Status: Active Protocol: Document 08/19/22 10:37 SP (Rec: 08/19/22 11:37 SP [id number]) Out-Patient Physical Therapy Visit Information Visit Information Visit Type Treatment Note Visit Start Time 10:37 Visit Stop Time 11:15 Total Visit Minutes 38 Visit Number 10 Number of CHIEF COOK Visits 1 Evaluation Information Evaluation Date 06/20/22 PT-OP-B Current Condition Start: 06/20/22 08:06 Freq: Status: Active Protocol: Document 07/16/22 14:31 SAK (Rec: 07/16/22 15:17 SAK [id number]) Current Condition History of Current Condition Onset Date years Current Complaints right hip and LE pain History of Current Condition Reports gradual worsening of right hip and LE pain over the course of years. 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 Wears lift in left and orthtics bilaterally; only footwear she can wear orthotics in. Gradual worsening of pain in right LE. Sees chiropractor 2x/month to straighten me out , sometimes uses foam roller. Hasn't gone to the gym for a long time, doing a lot of body weight exercise. Stands most of the day for work. Doesn't wear same shoes every day; anything that allows her to wear her custom orthotics. Massage 1x/mo. Prior Treatments and Tests MRI 06/13/22: 1. Asymmetric moderate right hip joint osteoarthritis as above. 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 No evidence of avascular necrosis of femoral head. 2. Mild distal right gluteus medius and minimus tendinosis at their insertion on greater trochanter. No other muscle or tendon signal abnormality. 3. Suggestion of extensive superior anterior right hip labral tear at 1 to 3 o'clock position. Treatment Goals Patient/Caregiver Goals Decrease pain, play in yard, be able to walk without pain. PT-OP-C Subjective Start: 06/20/22 08:06 Freq: Status: Active Protocol: Document 08/19/22 10:37 SP (Rec: 08/19/22 11:37 SP [id number]) OP-PT Subjective Patient Comments Patient Comments Pt reports sore after last tx, staring in pool 1:1 with aquatic movement staff. She had to lift heavy things last night pipes burst and needed to get to things. PT-OP-G Mobility & Gait Start: 06/20/22 08:06 Freq: Status: Active Protocol: Document 06/20/22 14:29 [facility] (Rec: 06/26/22 16:19 [facility] [id number]) OP Gait Assessment Gait Gait Assistance Required: Independent Assistive Devices Assistive Device None Orthotic/Prosthetic Devices or Brace: Yes Gait Deviations General Gait Pattern Antalgic,Decreased Stride Length,Decreased Feet Clearance Factors Limiting Gait Function Factors Limiting Gait Function Decreased Sensation,Pain PT-OP-J Posture/Palpation/Skin Start: 06/20/22 08:06 Freq: Status: Active Protocol: Document 06/20/22 14:29 [facility] (Rec: 06/26/22 16:19 [facility] [id number]) Posture Evaluation Position Standing Head/C-Spine Posture Forward Head T-Spine Posture Increased Kyphosis L-Spine Posture Increased Lordosis Pelvis Posture Anteriorly Tilted Ankle/Foot Posture (L) Pronated,(R) Pronated Foot Arch (L) Low Arch,(R) Low Arch PT-OP-K Range of Motion Start: 06/20/22 08:06 Freq: Status: Active Protocol: Document 06/20/22 14:29 [facility] (Rec: 06/26/22 16:19 [facility] [id number]) Lumbar Spine Range of Motion Lumbar Spine Active Degrees Testing Position Standing Flexion 25 Extension 20 Rotation Left 40 Rotation Right 40 Lateral Flexion Left 35 Lateral Flexion Right 35 ROM Limitations Soft Tissue Tightness Hip Goniometric Range of Motion Hip Right Straight Leg Raise 55 Extension 5 Left Straight Leg Raise 60 Extension 10 PT-OP-L Special Tests Start: 06/20/22 08:06 Freq: Status: Active Protocol: Document 06/20/22 14:29 [facility] (Rec: 06/26/22 16:19 [facility] [id number]) Special Tests Hip Special Tests Anterior Labral Test Test Results positive right LELA Test Results negative PT-OP-M Strength Start: 06/20/22 08:06 Freq: Status: Active Protocol: Document 06/20/22 14:29 [facility] (Rec: 06/26/22 16:19 SAK [id number]) Trunk Strength Trunk Manual Muscle Testing Flexion 4- Good- Extension 4- Good- Core Stabilization decreased activation of TrA Hip Strength Hip Manual Muscle Testing Right Flexion (L2) 4- Good- Extension (S1) 4- Good- Abduction 4- Good- Adduction 4 Good External Rotation 4- Good- Internal Rotation 4- Good- Left Flexion (L2) 4 Good Extension (S1) 4- Good- Abduction 4- Good- Adduction 4 Good External Rotation 4- Good- Internal Rotation 4 Good Knee Strength Knee Manual Muscle Testing Right Flexion (S2) 4 Good Extension (L3) 4 Good Left Flexion (S2) 5 Normal Extension (L3) 5 Normal PT-OP-Q Treatments Start: 06/20/22 08:06 Freq: Status: Active Protocol: Document 08/19/22 10:37 SP (Rec: 08/19/22 11:37 SP [id number]) Therapeutic Exercises Supine Exercises stretching: Supine Exercise Name hip flexor LE off table, adductor w/ strap, fig 4 (ft inside opp LE) Side right Resistance fig 4 Manual support contract relax increase hip ER ROM Reps/Minutes 30 x2 Comments cued maintain level pelvis, no LB arch Sitting Exercises Stretching Sitting Exercise Name hip IR/ ER (piriformis), HS Side bilateral Reps/Minutes 30-60 Comments limited R hip IR and ER range. Standing Exercises glut medius lifts Standing Exercise Name added to HEP Side bilateral Equipment Used off bottom step, HR support Reps/Minutes x10 Comments good feedback response, no pain just muscle tiring. self STMs Standing Exercise Name TFL, ITB, glut med Side bilateral Equipment Used rolling pin seated, ball wall TFL Reps/Minutes 2 min Comments good feedback response leg pendulum Standing Exercise Name HEP reviewed Resistance AROM Equipment Used contact rail, LE dangle off bottom step Reps/Minutes 30sec Comments cued level pelvis and stance LE on step stab engaged- good opp hip stance Manual Therapy Treatment Soft Tissue Mobilization iliopsoas Mobilization Type Myofascial Release,Sustained Pressure Body Position 5 min Joint Mobilizations right hip Joint strap Direction inferior, lateral Grade II Body Position Supine Comments pt states long axis stretch vs strap seemed same. Manual Techniques hip ER Comments contract relax R hip ER fig 4, improved increase ROM, isometric hip ER vs IR better. PT-OP-R Modalities Start: 06/20/22 08:06 Freq: Status: Active Protocol: Document 08/15/22 08:11 SAK (Rec: 08/15/22 09:00 SAK [id number]) Hot Pack/Cold Pack Treatment Hot Pack Location anterior hip Patient Position Sidelying Treatment Duration (minutes) 15 Patient Tolerance Good PT-OP-T Assessment and Plan Start: 06/20/22 08:06 Freq: Status: Active Protocol: Document 08/19/22 10:37 SP (Rec: 08/19/22 11:37 SP [id number]) Physical Therapy Assessment Goals Three Impairment activity intolerance Impairment LEFS score 44% Short Term Goal (STG) Improve LEFS score to at least 60%as measure of improved LE function and activity tolerance STG Duration 08/07/22 Electronic Components Assembler Goal (LTG) Improve LEFS score to at least 75% as measure of improved LE function and activity tolerance LTG Duration 09/18/22 Two Impairment strength and flexibility impairments Short Term Goal (STG) Patient to be instructed in HEP of therapeutic exercises for strengthening, flexibility and stabilization of core STG Duration 07/21/22 Nursing Home Goal (LTG) Patient to be independent and compliant with HEP and demonstrate improved strength and flexibility to WNL to allow her to do usual activities including playing in the yard, standing for work , taking walks LTG Duration 09/18/22 One Impairment right sided pain lumbar, hip, loraine/lateral LE Impairment 6/10 on pain scale Short Term Goal (STG) Decrease pain to no greater than 3/10 with all usual activitie STG Duration 07/21/22 Nursing Home Goal (LTG) Decrease pain to no greater than 1-2/10 with all usual activities LTG Duration 09/18/22 Assessment Summary Assessment Pt good response to manual in increased AROM post contract relax, ed self STMs TFL ball wall and added glut med for strengthening support end tx. Physical Therapy Plan Frequency and Duration Frequency of Treatment 2x/Week Duration of treatment (weeks) 12 Plan of Care Start Date 06/20/22 Plan of Care End Date 09/18/22 Therapeutic Interventions Therapeutic Interventions Home Exercise Program,Joint Mobilizations,Manual Therapy, Neuromuscular Re-education, Self-Care/Home Management, Sensory Integration,Soft Tissue Mobilization, Therapeutic Activities, Therapeutic Exercises Modalities Cold Pack/Ice Massage,Electric Stimulation,Hot Packs, Infrared Therapy,Iontophoresis ,Ultrasound Next Visit Focus/Plan Next Note Type Treatment Note Next Visit Plan Recheck glut lifts added last tx. POC: Continue progression strengthening, core stab, flexibility, and manual techniques
--- NOTE | 2022-08-27 13:45 | PT.OTN ---
Current Diagnoses Pain in right hip (08/27/22) Pain in right leg (08/27/22) Physical Therapy Treatment Note PT-OP-A Visit Information Start: 06/20/22 08:06 Freq: Status: Active Protocol: Document 08/27/22 13:04 SP (Rec: 08/27/22 13:52 SP [id number]) Out-Patient Physical Therapy Visit Information Visit Information Visit Type Treatment Note Visit Start Time 13:04 Visit Stop Time 13:45 Total Visit Minutes 41 Visit Number 10 Number of MICA PLATE LAYER Visits 2 Evaluation Information Evaluation Date 06/20/22 PT-OP-B Current Condition Start: 06/20/22 08:06 Freq: Status: Active Protocol: Document 07/16/22 14:31 SAK (Rec: 07/16/22 15:17 SAK [id number]) Current Condition History of Current Condition Onset Date years Current Complaints right hip and LE pain History of Current Condition Reports gradual worsening of right hip and LE pain over the course of years. 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 Wears lift in left and orthtics bilaterally; only footwear she can wear orthotics in. Gradual worsening of pain in right LE. Sees chiropractor 2x/month to straighten me out , sometimes uses foam roller. Hasn't gone to the gym for a long time, doing a lot of body weight exercise. Stands most of the day for work. Doesn't wear same shoes every day; anything that allows her to wear her custom orthotics. Massage 1x/mo. Prior Treatments and Tests MRI 06/13/22: 1. Asymmetric moderate right hip joint osteoarthritis as above. 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 No evidence of avascular necrosis of femoral head. 2. Mild distal right gluteus medius and minimus tendinosis at their insertion on greater trochanter. No other muscle or tendon signal abnormality. 3. Suggestion of extensive superior anterior right hip labral tear at 1 to 3 o'clock position. Treatment Goals Patient/Caregiver Goals Decrease pain, play in yard, be able to walk without pain. PT-OP-C Subjective Start: 06/20/22 08:06 Freq: Status: Active Protocol: Document 08/27/22 13:04 SP (Rec: 08/27/22 13:52 SP [id number]) OP-PT Subjective Patient Comments Patient Comments Pt report has been seeing 1:1 staff at [facility] working on ROM, strength to improve mobililty. She stated LB was sore yesterday and improved post use inversion table. Using tennis ball over piriformis seated and TFL standing at wall and finding helpful for self ROM. PT-OP-G Mobility & Gait Start: 06/20/22 08:06 Freq: Status: Active Protocol: Document 06/20/22 14:29 [facility] (Rec: 06/26/22 16:19 [facility] [id number]) OP Gait Assessment Gait Gait Assistance Required: Independent Assistive Devices Assistive Device None Orthotic/Prosthetic Devices or Brace: Yes Gait Deviations General Gait Pattern Antalgic,Decreased Stride Length,Decreased Feet Clearance Factors Limiting Gait Function Factors Limiting Gait Function Decreased Sensation,Pain PT-OP-J Posture/Palpation/Skin Start: 06/20/22 08:06 Freq: Status: Active Protocol: Document 06/20/22 14:29 [facility] (Rec: 06/26/22 16:19 [facility] [id number]) Posture Evaluation Position Standing Head/C-Spine Posture Forward Head T-Spine Posture Increased Kyphosis L-Spine Posture Increased Lordosis Pelvis Posture Anteriorly Tilted Ankle/Foot Posture (L) Pronated,(R) Pronated Foot Arch (L) Low Arch,(R) Low Arch PT-OP-K Range of Motion Start: 06/20/22 08:06 Freq: Status: Active Protocol: Document 06/20/22 14:29 [facility] (Rec: 06/26/22 16:19 [facility] [id number]) Lumbar Spine Range of Motion Lumbar Spine Active Degrees Testing Position Standing Flexion 25 Extension 20 Rotation Left 40 Rotation Right 40 Lateral Flexion Left 35 Lateral Flexion Right 35 ROM Limitations Soft Tissue Tightness Hip Goniometric Range of Motion Hip Right Straight Leg Raise 55 Extension 5 Left Straight Leg Raise 60 Extension 10 PT-OP-L Special Tests Start: 06/20/22 08:06 Freq: Status: Active Protocol: Document 06/20/22 14:29 [facility] (Rec: 06/26/22 16:19 [facility] [id number]) Special Tests Hip Special Tests Anterior Labral Test Test Results positive right LELA Test Results negative PT-OP-M Strength Start: 06/20/22 08:06 Freq: Status: Active Protocol: Document 06/20/22 14:29 SAK (Rec: 06/26/22 16:19 SAK [id number]) Trunk Strength Trunk Manual Muscle Testing Flexion 4- Good- Extension 4- Good- Core Stabilization decreased activation of TrA Hip Strength Hip Manual Muscle Testing Right Flexion (L2) 4- Good- Extension (S1) 4- Good- Abduction 4- Good- Adduction 4 Good External Rotation 4- Good- Internal Rotation 4- Good- Left Flexion (L2) 4 Good Extension (S1) 4- Good- Abduction 4- Good- Adduction 4 Good External Rotation 4- Good- Internal Rotation 4 Good Knee Strength Knee Manual Muscle Testing Right Flexion (S2) 4 Good Extension (L3) 4 Good Left Flexion (S2) 5 Normal Extension (L3) 5 Normal PT-OP-Q Treatments Start: 06/20/22 08:06 Freq: Status: Active Protocol: Document 08/27/22 13:04 SP (Rec: 08/27/22 13:52 SP [id number]) Therapeutic Exercises Supine Exercises erika stretch Supine Exercise Name added toP Side right Reps/Minutes 60 Comments good feedback response stretching: Supine Exercise Name hip flexor LE off table, fig 4 Side right Resistance fig 4 Manual support contract relax increase hip ER ROM Reps/Minutes 30 x2 Comments cued good LS neutral, good stretch Standing Exercises glut medius lifts Standing Exercise Name reviewed HEP Side bilateral Equipment Used off bottom step, HR support Reps/Minutes 5 reps x3 sets Comments good feedback response, no pain just muscle tiring. sidestepping Standing Exercise Name reviewed HEP: fwd,bwd/ lateral Resistance GTB provided #3 loop shins for home Reps/Minutes 15 ft x 2 Comments cued tall, TA, little bigger than normal step, clear trail LE leg pendulum Standing Exercise Name HEP reviewed Resistance AROM Equipment Used contact rail, LE dangle off bottom step Reps/Minutes 5 reps between hip hike sets Comments cued level pelvis and stance LE on step stab engaged- good opp hip stance Other Exercises 1/2 knee hip flexor stretch Other Exercise Name added for HEP Side right Reps/Minutes 30-60 x3 Comments good feedback streth Manual Therapy Treatment Soft Tissue Mobilization iliopsoas Body Location R iliacus, prox quad, TFL Mobilization Type Myofascial Release,Sustained Pressure Body Position 5 min Joint Mobilizations right hip Joint strap and towel Direction inferior, inferior/lateral: R hip in ER/ R ankle on opp knee supported Grade II Body Position Hooklying Reps/Duration 5 min Comments manual, good feeback Manual Techniques hip ER Comments contract relax R hip ER fig 4, improved limited increase ROM , isometric hip ER . PT-OP-R Modalities Start: 06/20/22 08:06 Freq: Status: Active Protocol: Document 08/15/22 08:11 SAK (Rec: 08/15/22 09:00 SAK [id number]) Hot Pack/Cold Pack Treatment Hot Pack Location anterior hip Patient Position Sidelying Treatment Duration (minutes) 15 Patient Tolerance Good PT-OP-T Assessment and Plan Start: 06/20/22 08:06 Freq: Status: Active Protocol: Document 08/27/22 13:04 SP (Rec: 08/27/22 13:52 SP [id number]) Physical Therapy Assessment Goals Three Impairment activity intolerance Impairment LEFS score 44% Short Term Goal (STG) Improve LEFS score to at least 60%as measure of improved LE function and activity tolerance STG Duration 08/07/22 Independent Consultant Goal (LTG) Improve LEFS score to at least 75% as measure of improved LE function and activity tolerance LTG Duration 09/18/22 Two Impairment strength and flexibility impairments Short Term Goal (STG) Patient to be instructed in HEP of therapeutic exercises for strengthening, flexibility and stabilization of core STG Duration 07/21/22 Skilled Nursing Goal (LTG) Patient to be independent and compliant with HEP and demonstrate improved strength and flexibility to WNL to allow her to do usual activities including playing in the yard, standing for work , taking walks LTG Duration 09/18/22 One Impairment right sided pain lumbar, hip, loraine/lateral LE Impairment 6/10 on pain scale Short Term Goal (STG) Decrease pain to no greater than 3/10 with all usual activitie STG Duration 07/21/22 Skilled Nursing Goal (LTG) Decrease pain to no greater than 1-2/10 with all usual activities LTG Duration 09/18/22 Assessment Summary Assessment Pt good feedback response to manual, stretching and glut med strenghening lifts and band walk. Pt would benefit from continued strengthening and progress ROM R hip IR/ ER. . Physical Therapy Plan Frequency and Duration Frequency of Treatment 2x/Week Duration of treatment (weeks) 12 Plan of Care Start Date 06/20/22 Plan of Care End Date 09/18/22 Therapeutic Interventions Therapeutic Interventions Home Exercise Program,Joint Mobilizations,Manual Therapy, Neuromuscular Re-education, Self-Care/Home Management, Sensory Integration,Soft Tissue Mobilization, Therapeutic Activities, Therapeutic Exercises Modalities Cold Pack/Ice Massage,Electric Stimulation,Hot Packs, Infrared Therapy,Iontophoresis ,Ultrasound Next Visit Focus/Plan Next Note Type Treatment Note Next Visit Plan add more appts before 09/18/22 POC expires, 2 week gap noted 08/27. NExt tx: instruct self mobs quadruped inferior glide and trial plank. POC: Continue progression strengthening, core stab, flexibility, and manual techniques
--- NOTE | 2022-09-02 17:10 | PT.OTN ---
Current Diagnoses Pain in right hip (09/02/22) Pain in right leg (09/02/22) Physical Therapy Treatment Note PT-OP-A Visit Information Start: 06/20/22 08:06 Freq: Status: Active Protocol: Document 09/02/22 13:01 SAK (Rec: 09/02/22 13:49 [facility] [id number]) Out-Patient Physical Therapy Visit Information Visit Information Visit Type Treatment Note Visit Start Time 13:02 Visit Stop Time 13:45 Total Visit Minutes 41 Visit Number 11 Number of CARTRIDGE LOADER Visits 0 Evaluation Information Evaluation Date 06/20/22 PT-OP-B Current Condition Start: 06/20/22 08:06 Freq: Status: Active Protocol: Document 07/16/22 14:31 SAK (Rec: 07/16/22 15:17 [facility] [id number]) Current Condition History of Current Condition Onset Date years Current Complaints right hip and LE pain History of Current Condition Reports gradual worsening of right hip and LE pain over the course of years. 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 Wears lift in left and orthtics bilaterally; only footwear she can wear orthotics in. Gradual worsening of pain in right LE. Sees chiropractor 2x/month to straighten me out , sometimes uses foam roller. Hasn't gone to the gym for a long time, doing a lot of body weight exercise. Stands most of the day for work. Doesn't wear same shoes every day; anything that allows her to wear her custom orthotics. Massage 1x/mo. Prior Treatments and Tests MRI 06/13/22: 1. Asymmetric moderate right hip joint osteoarthritis as above. 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 No evidence of avascular necrosis of femoral head. 2. Mild distal right gluteus medius and minimus tendinosis at their insertion on greater trochanter. No other muscle or tendon signal abnormality. 3. Suggestion of extensive superior anterior right hip labral tear at 1 to 3 o'clock position. Treatment Goals Patient/Caregiver Goals Decrease pain, play in yard, be able to walk without pain. PT-OP-C Subjective Start: 06/20/22 08:06 Freq: Status: Active Protocol: Document 09/02/22 13:01 SAK (Rec: 09/02/22 13:49 [facility] [id number]) OP-PT Subjective Patient Comments Patient Comments Reports aquatic exercise going well. After last session with primarily manual therapy felt like I could run. Struggle the most getting comfortable in bed. Not using towel at side because I toss and turn too much. Hasn't had orthotics in today, feels very tight. PT-OP-G Mobility & Gait Start: 06/20/22 08:06 Freq: Status: Active Protocol: Document 06/20/22 14:29 [facility] (Rec: 06/26/22 16:19 [facility] [id number]) OP Gait Assessment Gait Gait Assistance Required: Independent Assistive Devices Assistive Device None Orthotic/Prosthetic Devices or Brace: Yes Gait Deviations General Gait Pattern Antalgic,Decreased Stride Length,Decreased Feet Clearance Factors Limiting Gait Function Factors Limiting Gait Function Decreased Sensation,Pain PT-OP-J Posture/Palpation/Skin Start: 06/20/22 08:06 Freq: Status: Active Protocol: Document 06/20/22 14:29 [facility] (Rec: 06/26/22 16:19 [facility] [id number]) Posture Evaluation Position Standing Head/C-Spine Posture Forward Head T-Spine Posture Increased Kyphosis L-Spine Posture Increased Lordosis Pelvis Posture Anteriorly Tilted Ankle/Foot Posture (L) Pronated,(R) Pronated Foot Arch (L) Low Arch,(R) Low Arch PT-OP-K Range of Motion Start: 06/20/22 08:06 Freq: Status: Active Protocol: Document 06/20/22 14:29 [facility] (Rec: 06/26/22 16:19 [facility] [id number]) Lumbar Spine Range of Motion Lumbar Spine Active Degrees Testing Position Standing Flexion 25 Extension 20 Rotation Left 40 Rotation Right 40 Lateral Flexion Left 35 Lateral Flexion Right 35 ROM Limitations Soft Tissue Tightness Hip Goniometric Range of Motion Hip Right Straight Leg Raise 55 Extension 5 Left Straight Leg Raise 60 Extension 10 PT-OP-L Special Tests Start: 06/20/22 08:06 Freq: Status: Active Protocol: Document 06/20/22 14:29 [facility] (Rec: 06/26/22 16:19 [facility] [id number]) Special Tests Hip Special Tests Anterior Labral Test Test Results positive right LELA Test Results negative PT-OP-M Strength Start: 06/20/22 08:06 Freq: Status: Active Protocol: Document 06/20/22 14:29 [facility] (Rec: 06/26/22 16:19 [facility] [id number]) Trunk Strength Trunk Manual Muscle Testing Flexion 4- Good- Extension 4- Good- Core Stabilization decreased activation of TrA Hip Strength Hip Manual Muscle Testing Right Flexion (L2) 4- Good- Extension (S1) 4- Good- Abduction 4- Good- Adduction 4 Good External Rotation 4- Good- Internal Rotation 4- Good- Left Flexion (L2) 4 Good Extension (S1) 4- Good- Abduction 4- Good- Adduction 4 Good External Rotation 4- Good- Internal Rotation 4 Good Knee Strength Knee Manual Muscle Testing Right Flexion (S2) 4 Good Extension (L3) 4 Good Left Flexion (S2) 5 Normal Extension (L3) 5 Normal PT-OP-Q Treatments Start: 06/20/22 08:06 Freq: Status: Active Protocol: Document 09/02/22 13:01 [facility] (Rec: 09/02/22 13:49 [facility] [id number]) Therapeutic Exercises Supine Exercises erika stretch Supine Exercise Name review HEP Side right Reps/Minutes 60x2 Comments good feedback response Standing Exercises glut medius lifts Standing Exercise Name HEP sidestepping Standing Exercise Name HEP leg pendulum Standing Exercise Name HEP Other Exercises 1/2 knee hip flexor stretch Other Exercise Name HEP Manual Therapy Treatment Soft Tissue Mobilization iliopsoas Body Location R iliacus, prox quad, TFL, psoas Mobilization Type Myofascial Release,Sustained Pressure Joint Mobilizations self inf glide hip Body Position Hooklying Reps/Duration 10 min Comments band at groin over towel right hip Joint strap and towel Direction inferior, inferior/lateral: R hip in ER/ R ankle on opp knee supported Grade II Body Position Hooklying Reps/Duration 5 min Comments manual, good feeback Manual Techniques hip ER Comments contract relax R hip ER fig 4, improved limited increase ROM , isometric hip ER . PT-OP-R Modalities Start: 06/20/22 08:06 Freq: Status: Active Protocol: Document 08/15/22 08:11 [facility] (Rec: 08/15/22 09:00 [facility] [id number]) Hot Pack/Cold Pack Treatment Hot Pack Location anterior hip Patient Position Sidelying Treatment Duration (minutes) 15 Patient Tolerance Good PT-OP-T Assessment and Plan Start: 06/20/22 08:06 Freq: Status: Active Protocol: Document 09/02/22 13:01 [facility] (Rec: 09/02/22 13:49 [facility] [id number]) Physical Therapy Assessment Goals Three Impairment activity intolerance Impairment LEFS score 44% Short Term Goal (STG) Improve LEFS score to at least 60%as measure of improved LE function and activity tolerance STG Duration 08/07/22 Penitentiary Goal (LTG) Improve LEFS score to at least 75% as measure of improved LE function and activity tolerance LTG Duration 09/18/22 Two Impairment strength and flexibility impairments Short Term Goal (STG) Patient to be instructed in HEP of therapeutic exercises for strengthening, flexibility and stabilization of core STG Duration 07/21/22 Penitentiary Goal (LTG) Patient to be independent and compliant with HEP and demonstrate improved strength and flexibility to WNL to allow her to do usual activities including playing in the yard, standing for work , taking walks LTG Duration 09/18/22 One Impairment right sided pain lumbar, hip, loraine/lateral LE Impairment 6/10 on pain scale Short Term Goal (STG) Decrease pain to no greater than 3/10 with all usual activitie STG Duration 07/21/22 Cutter Hand Goal (LTG) Decrease pain to no greater than 1-2/10 with all usual activities LTG Duration 09/18/22 Assessment Summary Assessment Good benefit from manual techniques and aquatic exercise. Compliant to HEP. Increased tightness today likely due to active at home and not wearing orthotics. Taught self hip mob options today supine long and short axis with better tolerance for short axis with good feedback response. Physical Therapy Plan Frequency and Duration Frequency of Treatment 2x/Week Duration of treatment (weeks) 12 Plan of Care Start Date 06/20/22 Plan of Care End Date 09/18/22 Therapeutic Interventions Therapeutic Interventions Home Exercise Program,Joint Mobilizations,Manual Therapy, Neuromuscular Re-education, Self-Care/Home Management, Sensory Integration,Soft Tissue Mobilization, Therapeutic Activities, Therapeutic Exercises Modalities Cold Pack/Ice Massage,Electric Stimulation,Hot Packs, Infrared Therapy,Iontophoresis ,Ultrasound Next Visit Focus/Plan Next Note Type Treatment Note Next Visit Plan NExt tx: instruct self mobs quadruped inferior glide and trial plank. POC: Continue progression
--- NOTE | 2022-09-18 16:17 | PT.OTRE ---
Current Diagnoses Pain in right hip (09/18/22) Pain in right leg (09/18/22) Past Medical History (Last Updated 09/04/22 @ 09:40 by JONH Farah) Abnormal Pap smear of cervix (~1996) Anxiety Asthma (~1975) Bilateral foot pain Bilateral hand pain Carpal tunnel syndrome (~2016) Cervical dysplasia (~1993) Cervical somatic dysfunction Chicken pox (~1974) Chronic lower back pain Chronic thoracic back pain Cranial somatic dysfunction Depression (~2011) Eczema Excess ear wax External hemorrhoid (~1995) Follicle stimulating hormone excess Gestational diabetes Hand pain Headache Headache above the eye region Human papilloma virus (~1996) Menopause Menorrhagia (~1983) Migraines Ovarian cyst (~2013) Pain of foot Painful menstrual periods (~1983) Palpitations Pelvic somatic dysfunction Scoliosis Segmental and somatic dysfunction of sacral region Segmental and somatic dysfunction of thoracic region Sinus pain Vaginal atrophy Surgical History (Last Reviewed 09/04/22 @ 09:23 by JONH Farah) Anesthesia History of section (~1989) Visit Care Team Role Provider Type JONH Farah Attending Provider Advanced Window Decorator Family Provider Primary Care Provider Referring Provider Specialty: Family Practice Address: [address] [place] [address], [facility] Email: [email or web address] Physical Therapy Re-Evaluation PT-OP-A Visit Information Start: 06/20/22 08:06 Freq: Status: Active Protocol: Document 09/18/22 15:14 SAK (Rec: 09/18/22 15:32 SAK [id number]) Out-Patient Physical Therapy Visit Information Visit Information Visit Type Treatment Note Visit Start Time 15:23 Visit Stop Time 16:06 Total Visit Minutes 43 Visit Number 12 Number of SOCIAL SECURITY SPECIALIST Visits 0 Evaluation Information Evaluation Date 06/20/22 PT-OP-B Current Condition Start: 06/20/22 08:06 Freq: Status: Active Protocol: Document 07/16/22 14:31 SAK (Rec: 07/16/22 15:17 SAK [id number]) Current Condition History of Current Condition Onset Date years Current Complaints right hip and LE pain History of Current Condition Reports gradual worsening of right hip and LE pain over the course of years. 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 Wears lift in left and orthtics bilaterally; only footwear she can wear orthotics in. Gradual worsening of pain in right LE. Sees chiropractor 2x/month to straighten me out , sometimes uses foam roller. Hasn't gone to the gym for a long time, doing a lot of body weight exercise. Stands most of the day for work. Doesn't wear same shoes every day; anything that allows her to wear her custom orthotics. Massage 1x/mo. Prior Treatments and Tests MRI 06/13/22: 1. Asymmetric moderate right hip joint osteoarthritis as above. 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 No evidence of avascular necrosis of femoral head. 2. Mild distal right gluteus medius and minimus tendinosis at their insertion on greater trochanter. No other muscle or tendon signal abnormality. 3. Suggestion of extensive superior anterior right hip labral tear at 1 to 3 o'clock position. Treatment Goals Patient/Caregiver Goals Decrease pain, play in yard, be able to walk without pain. PT-OP-C Subjective Start: 06/20/22 08:06 Freq: Status: Active Protocol: Document 09/18/22 15:14 [facility] (Rec: 09/18/22 15:32 [facility] [id number]) OP-PT Subjective Patient Comments Patient Comments Reports aquatic therapy is a game changer. Pain 8/10 when goes to bed without stretching ; improves if stretches pain 0 /10 when just sitting, 5-7/10 generally. Best after PT or aquatic therapy PT-OP-G Mobility & Gait Start: 06/20/22 08:06 Freq: Status: Active Protocol: Document 06/20/22 14:29 [facility] (Rec: 06/26/22 16:19 [facility] [id number]) OP Gait Assessment Gait Gait Assistance Required: Independent Assistive Devices Assistive Device None Orthotic/Prosthetic Devices or Brace: Yes Gait Deviations General Gait Pattern Antalgic,Decreased Stride Length,Decreased Feet Clearance Factors Limiting Gait Function Factors Limiting Gait Function Decreased Sensation,Pain PT-OP-J Posture/Palpation/Skin Start: 06/20/22 08:06 Freq: Status: Active Protocol: Document 06/20/22 14:29 [facility] (Rec: 06/26/22 16:19 [facility] [id number]) Posture Evaluation Position Standing Head/C-Spine Posture Forward Head T-Spine Posture Increased Kyphosis L-Spine Posture Increased Lordosis Pelvis Posture Anteriorly Tilted Ankle/Foot Posture (L) Pronated,(R) Pronated Foot Arch (L) Low Arch,(R) Low Arch PT-OP-K Range of Motion Start: 06/20/22 08:06 Freq: Status: Active Protocol: Document 06/20/22 14:29 [facility] (Rec: 06/26/22 16:19 [facility] [id number]) Lumbar Spine Range of Motion Lumbar Spine Active Degrees Testing Position Standing Flexion 25 Extension 20 Rotation Left 40 Rotation Right 40 Lateral Flexion Left 35 Lateral Flexion Right 35 ROM Limitations Soft Tissue Tightness Hip Goniometric Range of Motion Hip Measured in Degrees Right Straight Leg Raise 55 Extension 5 Left Straight Leg Raise 60 Extension 10 PT-OP-L Special Tests Start: 06/20/22 08:06 Freq: Status: Active Protocol: Document 06/20/22 14:29 [facility] (Rec: 06/26/22 16:19 [facility] [id number]) Special Tests Hip Special Tests Anterior Labral Test Test Results positive right LELA Test Results negative PT-OP-M Strength Start: 06/20/22 08:06 Freq: Status: Active Protocol: Document 09/18/22 15:14 [facility] (Rec: 09/18/22 16:08 [facility] [id number]) Hip Strength Hip Manual Muscle Testing Right Flexion (L2) 4 Good Extension (S1) 4- Good- Abduction 4- Good- Adduction 3+ Fair+ External Rotation 4- Good- Internal Rotation 4- Good- Left Flexion (L2) 4- Good- Extension (S1) 4- Good- Abduction 4- Good- Adduction 4- Good- External Rotation 4- Good- Internal Rotation 4 Good PT-OP-Q Treatments Start: 06/20/22 08:06 Freq: Status: Active Protocol: Document 09/18/22 15:14 [facility] (Rec: 09/18/22 15:32 [facility] [id number]) Therapeutic Exercises Supine Exercises erika stretch Supine Exercise Name review HEP Side bilateral Reps/Minutes 60x2 Comments end of table, left tighter than right Sidelying Exercises sidelying hip abd Reps/Minutes 10x Comments bottom leg straight, cues for core, keep leg parallel clam Sidelying Exercise Name reviewed HEP Reps/Minutes 10x5 Comments cued TA, PPT, longer hold at top lift tolerant, no LB arch Other Exercises 1/2 knee hip flexor stretch Other Exercise Name review HEP Comments cues to ease back if painful Manual Therapy Treatment Soft Tissue Mobilization iliopsoas Body Location R iliacus, Mobilization Type Sustained Pressure Body Position Hooklying Comments pin and stretch Joint Mobilizations right hip Joint strap and towel Direction inferior, inferior/lateral: R hip in ER/ R ankle on opp knee supported Grade II Body Position Hooklying Reps/Duration 5 min Comments manual, good feeback Manual Techniques hip ER Comments contract relax R hip ER fig 4, improved limited increase ROM , isometric hip ER . PT-OP-R Modalities Start: 06/20/22 08:06 Freq: Status: Active Protocol: Document 08/15/22 08:11 [facility] (Rec: 08/15/22 09:00 [facility] [id number]) Hot Pack/Cold Pack Treatment Hot Pack Location anterior hip Patient Position Sidelying Treatment Duration (minutes) 15 Patient Tolerance Good PT-OP-T Assessment and Plan Start: 06/20/22 08:06 Freq: Status: Active Protocol: Document 09/18/22 15:14 [facility] (Rec: 09/18/22 15:32 [facility] [id number]) Physical Therapy Assessment Goals Three Impairment activity intolerance Impairment LEFS score 44% Short Term Goal (STG) Improve LEFS score to at least 60%as measure of improved LE function and activity tolerance 09/18/22: goal achieved STG Duration goal met Deep Fat Fry Cook Goal (LTG) Improve LEFS score to at least 75% as measure of improved LE function and activity tolerance LTG Duration 10/19/22 Two Impairment strength and flexibility impairments Short Term Goal (STG) Patient to be instructed in HEP of therapeutic exercises for strengthening, flexibility and stabilization of core 09/18/22: goal met, ongoing progression STG Duration goal met, ongoing progression and modification Deep Fat Fry Cook Goal (LTG) Patient to be independent and compliant with HEP and demonstrate improved strength and flexibility to WNL to allow her to do usual activities including playing in the yard, standing for work , taking walks LTG Duration 10/19/22 One Impairment right sided pain lumbar, hip, loraine/lateral LE Impairment 6/10 on pain scale Short Term Goal (STG) Decrease pain to no greater than 3/10 with all usual activitie 09/18/22: goal not met. Variable, generally 5-7/10 with spike to 8/10 if doesn't do stretching Deep Fat Fry Cook Goal (LTG) Decrease pain to no greater than 1-2/10 with all usual activities LTG Duration 10/19/22 Progress Towards Goals Progress Towards Goals Progressing Toward Goals Assessment Summary Assessment Fair compliance to HEP. No significant change in muscle strength yet, patient focused more on stretching than strengthening. Emphasized importance of strengthening into new ROM achieved with stretching. Reports good pain relief for several hours after PT. Physical Therapy Plan Frequency and Duration Frequency of Treatment 2x/Week Duration of treatment (weeks) 4 Plan of Care Start Date 09/18/22 Plan of Care End Date 10/19/22 Therapeutic Interventions Therapeutic Interventions Home Exercise Program,Joint Mobilizations,Manual Therapy, Neuromuscular Re-education, Self-Care/Home Management, Sensory Integration,Soft Tissue Mobilization, Therapeutic Activities, Therapeutic Exercises Modalities Cold Pack/Ice Massage,Electric Stimulation,Hot Packs, Infrared Therapy,Iontophoresis ,Ultrasound Next Visit Focus/Plan Next Note Type Treatment Note Next Visit Plan NExt tx: instruct self mobs quadruped inferior glide and trial plank. POC: Continue progression of ther ex as tolerated, emphasis on core and hip strengthening .
--- NOTE | 2022-09-18 16:17 | PT.OPPOC ---
Physical, Occupational & Speech Therapy At [facility] Current Diagnoses Pain in right hip (09/18/22) Pain in right leg (09/18/22) Visit Care Team Role Provider Type JONH Farah Attending Provider Advanced Education Research Analyst Family Provider Primary Care Provider Referring Provider Specialty: [facility] Practice Address: [address] [place] [address], [facility] Email: [email or web address] Plan Of Care PT-OP-T Assessment and Plan Start: 06/20/22 08:06 Freq: Status: Active Protocol: Document 09/18/22 15:14 [facility] (Rec: 09/18/22 15:32 [facility] [id number]) Physical Therapy Assessment Goals Three Impairment activity intolerance Impairment LEFS score 44% Short Term Goal (STG) Improve LEFS score to at least 60%as measure of improved LE function and activity tolerance 09/18/22: goal achieved STG Duration goal met Prison Goal (LTG) Improve LEFS score to at least 75% as measure of improved LE function and activity tolerance LTG Duration 10/19/22 Two Impairment strength and flexibility impairments Short Term Goal (STG) Patient to be instructed in HEP of therapeutic exercises for strengthening, flexibility and stabilization of core 09/18/22: goal met, ongoing progression STG Duration goal met, ongoing progression and modification Wastewater Plant Operator Goal (LTG) Patient to be independent and compliant with HEP and demonstrate improved strength and flexibility to WNL to allow her to do usual activities including playing in the yard, standing for work , taking walks LTG Duration 10/19/22 One Impairment right sided pain lumbar, hip, loraine/lateral LE Impairment 6/10 on pain scale Short Term Goal (STG) Decrease pain to no greater than 3/10 with all usual activitie 09/18/22: goal not met. Variable, generally 5-7/10 with spike to 8/10 if doesn't do stretching Prison Goal (LTG) Decrease pain to no greater than 1-2/10 with all usual activities LTG Duration 10/19/22 Progress Towards Goals Progress Towards Goals Progressing Toward Goals Assessment Summary Assessment Fair compliance to HEP. No significant change in muscle strength yet, patient focused more on stretching than strengthening. Emphasized importance of strengthening into new ROM achieved with stretching. Reports good pain relief for several hours after PT. Physical Therapy Plan Frequency and Duration Frequency of Treatment 2x/Week Duration of treatment (weeks) 4 Plan of Care Start Date 09/18/22 Plan of Care End Date 10/19/22 Therapeutic Interventions Therapeutic Interventions Home Exercise Program,Joint Mobilizations,Manual Therapy, Neuromuscular Re-education, Self-Care/Home Management, Sensory Integration,Soft Tissue Mobilization, Therapeutic Activities, Therapeutic Exercises Modalities Cold Pack/Ice Massage,Electric Stimulation,Hot Packs, Infrared Therapy,Iontophoresis ,Ultrasound Next Visit Focus/Plan Next Note Type Treatment Note Next Visit Plan NExt tx: instruct self mobs quadruped inferior glide and trial plank. POC: Continue progression of ther ex as tolerated, emphasis on core and hip strengthening . Plan of Care Dates Plan of Care Start Date 09/18/22 Plan of Care End Date 10/19/22 Electronically Signed by: Karuna Gaviria, PT 09/18/22 [id number] If you are in agreement with this Plan of Care, please return a signed and dated copy. I have reviewed this Plan of Care and certify that the skilled therapy services above are required to meet the patient?s needs. Physician Signature Date Printed Name and Credentials Clinical Instructor Signature Printed Name and Credentials
--- NOTE | 2022-09-30 16:07 | PT.OTN ---
Current Diagnoses Pain in right hip (09/30/22) Pain in right leg (09/30/22) Physical Therapy Treatment Note PT-OP-A Visit Information Start: 06/20/22 08:06 Freq: Status: Active Protocol: Document 09/30/22 09:50 [facility]AK (Rec: 09/30/22 10:31 SAK [id number]) Out-Patient Physical Therapy Visit Information Visit Information Visit Type Treatment Note Visit Start Time 09:50 Visit Stop Time 01:45 Total Visit Minutes 55 Visit Number 15 Evaluation Information Evaluation Date 06/20/22 PT-OP-B Current Condition Start: 06/20/22 08:06 Freq: Status: Active Protocol: Document 07/16/22 14:31 [facility]AK (Rec: 07/16/22 15:17 SAK [id number]) Current Condition History of Current Condition Onset Date years Current Complaints right hip and LE pain History of Current Condition Reports gradual worsening of right hip and LE pain over the course of years. 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 Wears lift in left and orthtics bilaterally; only footwear she can wear orthotics in. Gradual worsening of pain in right LE. Sees chiropractor 2x/month to straighten me out , sometimes uses foam roller. Hasn't gone to the gym for a long time, doing a lot of body weight exercise. Stands most of the day for work. Doesn't wear same shoes every day; anything that allows her to wear her custom orthotics. Massage 1x/mo. Prior Treatments and Tests MRI 06/13/22: 1. Asymmetric moderate right hip joint osteoarthritis as above. 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 No evidence of avascular necrosis of femoral head. 2. Mild distal right gluteus medius and minimus tendinosis at their insertion on greater trochanter. No other muscle or tendon signal abnormality. 3. Suggestion of extensive superior anterior right hip labral tear at 1 to 3 o'clock position. Treatment Goals Patient/Caregiver Goals Decrease pain, play in yard, be able to walk without pain. PT-OP-C Subjective Start: 06/20/22 08:06 Freq: Status: Active Protocol: Document 09/30/22 09:50 SAK (Rec: 09/30/22 10:31 SAK [id number]) OP-PT Subjective Patient Comments Patient Comments Pain better after weekend not working, has been wearing orthotics, has been doing stretching but does report she has been lazy on strengthening and doing self mobilization. Has been doing 90/90 positional resting as recommended. Has ordered a yoga mat. PT-OP-G Mobility & Gait Start: 06/20/22 08:06 Freq: Status: Active Protocol: Document 06/20/22 14:29 [facility] (Rec: 06/26/22 16:19 [facility] [id number]) OP Gait Assessment Gait Gait Assistance Required: Independent Assistive Devices Assistive Device None Orthotic/Prosthetic Devices or Brace: Yes Gait Deviations General Gait Pattern Antalgic,Decreased Stride Length,Decreased Feet Clearance Factors Limiting Gait Function Factors Limiting Gait Function Decreased Sensation,Pain PT-OP-J Posture/Palpation/Skin Start: 06/20/22 08:06 Freq: Status: Active Protocol: Document 06/20/22 14:29 [facility] (Rec: 06/26/22 16:19 [facility] [id number]) Posture Evaluation Position Standing Head/C-Spine Posture Forward Head T-Spine Posture Increased Kyphosis L-Spine Posture Increased Lordosis Pelvis Posture Anteriorly Tilted Ankle/Foot Posture (L) Pronated,(R) Pronated Foot Arch (L) Low Arch,(R) Low Arch PT-OP-K Range of Motion Start: 06/20/22 08:06 Freq: Status: Active Protocol: Document 06/20/22 14:29 [facility] (Rec: 06/26/22 16:19 [facility] [id number]) Lumbar Spine Range of Motion Lumbar Spine Active Degrees Testing Position Standing Flexion 25 Extension 20 Rotation Left 40 Rotation Right 40 Lateral Flexion Left 35 Lateral Flexion Right 35 ROM Limitations Soft Tissue Tightness Hip Goniometric Range of Motion Hip Right Straight Leg Raise 55 Extension 5 Left Straight Leg Raise 60 Extension 10 PT-OP-L Special Tests Start: 06/20/22 08:06 Freq: Status: Active Protocol: Document 06/20/22 14:29 [facility] (Rec: 06/26/22 16:19 [facility] [id number]) Special Tests Hip Special Tests Anterior Labral Test Test Results positive right LELA Test Results negative PT-OP-M Strength Start: 06/20/22 08:06 Freq: Status: Active Protocol: Document 09/18/22 15:14 [facility] (Rec: 09/18/22 16:08 [facility] [id number]) Hip Strength Hip Manual Muscle Testing Right Flexion (L2) 4 Good Extension (S1) 4- Good- Abduction 4- Good- Adduction 3+ Fair+ External Rotation 4- Good- Internal Rotation 4- Good- Left Flexion (L2) 4- Good- Extension (S1) 4- Good- Abduction 4- Good- Adduction 4- Good- External Rotation 4- Good- Internal Rotation 4 Good PT-OP-Q Treatments Start: 06/20/22 08:06 Freq: Status: Active Protocol: Document 09/30/22 09:50 [facility] (Rec: 09/30/22 10:31 [facility] [id number]) Cardio Equipment Elliptical Duration (Minutes) 5 Resistance 10 Recumbent Stepper (Sci-Fit) Duration (Minutes) 8 Resistance 2 Seat Position 14 Other UE/LE , cues for core, alignment Gym Equipment Cable Column (Body Solid) hamstring curl Details nazia and unil Resistance 40,20 Reps/Time 10x2 hip abd Resistance 30 Reps/Time 10x2 hip add Resistance 30 Reps/Time 10x2 Therapeutic Exercises Supine Exercises IT band stretch Supine Exercise Name HEP hamstring stretch dooray Supine Exercise Name HEP erika stretch Supine Exercise Name hEP self massage hip flex Equipment Used massage tool Comments tennis ball, with hip flex/ext , IR/ER single leg bridging Supine Exercise Name HEP bridge Supine Exercise Name HEP Sidelying Exercises open book Sidelying Exercise Name HEP reverse clamshell Sidelying Exercise Name HEP sidelying hip abd Sidelying Exercise Name HEP Sitting Exercises Stretching Sitting Exercise Name HEP Standing Exercises glut medius lifts Standing Exercise Name HEP sidestepping Standing Exercise Name HEP Other Exercises 1/2 knee hip flexor stretch Other Exercise Name HEP Manual Therapy Treatment Soft Tissue Mobilization iliopsoas Body Location R iliacus, Mobilization Type Sustained Pressure Body Position Hooklying Comments pin and stretch IT band, quads Body Location ITB, lateral quad, glut med Mobilization Type Instrument Assisted Intensity/Depth Moderate Body Position Sidelying Joint Mobilizations right hip Direction inf glide Grade III Body Position Hooklying Reps/Duration 5 min Comments PT performed PT-OP-R Modalities Start: 06/20/22 08:06 Freq: Status: Active Protocol: Document 09/26/22 09:02 [facility] (Rec: 09/26/22 16:41 [facility] [id number]) Hot Pack/Cold Pack Treatment Hot Pack Location right hip, IT band Patient Position Hooklying Treatment Duration (minutes) 15 Patient Tolerance Good PT-OP-T Assessment and Plan Start: 06/20/22 08:06 Freq: Status: Active Protocol: Document 09/30/22 09:50 [facility] (Rec: 09/30/22 10:31 SAK [id number]) Physical Therapy Assessment Goals Three Impairment activity intolerance Impairment LEFS score 44% Short Term Goal (STG) Improve LEFS score to at least 60%as measure of improved LE function and activity tolerance 09/18/22: goal achieved STG Duration goal met Senior Living Goal (LTG) Improve LEFS score to at least 75% as measure of improved LE function and activity tolerance LTG Duration 10/19/22 Two Impairment strength and flexibility impairments Short Term Goal (STG) Patient to be instructed in HEP of therapeutic exercises for strengthening, flexibility and stabilization of core 09/18/22: goal met, ongoing progression STG Duration goal met, ongoing progression and modification Senior Living Goal (LTG) Patient to be independent and compliant with HEP and demonstrate improved strength and flexibility to WNL to allow her to do usual activities including playing in the yard, standing for work , taking walks LTG Duration 10/19/22 One Impairment right sided pain lumbar, hip, loraine/lateral LE Impairment 6/10 on pain scale Short Term Goal (STG) Decrease pain to no greater than 3/10 with all usual activitie 09/18/22: goal not met. Variable, generally 5-7/10 with spike to 8/10 if doesn't do stretching Senior Living Goal (LTG) Decrease pain to no greater than 1-2/10 with all usual activities LTG Duration 10/19/22 Assessment Summary Assessment Better tolerance for standing elliptical than seated. Stressed importance of compliance to strengthening exercises, go back to gym, self mob, continue aquatic exercise. Physical Therapy Plan Frequency and Duration Frequency of Treatment 2x/Week Duration of treatment (weeks) 4 Plan of Care Start Date 09/18/22 Plan of Care End Date 10/19/22 Therapeutic Interventions Therapeutic Interventions Home Exercise Program,Joint Mobilizations,Manual Therapy, Neuromuscular Re-education, Self-Care/Home Management, Sensory Integration,Soft Tissue Mobilization, Therapeutic Activities, Therapeutic Exercises Modalities Cold Pack/Ice Massage,Electric Stimulation,Hot Packs, Infrared Therapy,Iontophoresis ,Ultrasound Next Visit Focus/Plan Next Note Type Treatment Note Next Visit Plan REview self-mobilization, continue core stab on foam roller, manual techniques.
--- NOTE | 2022-10-03 12:28 | PT.OTN ---
Current Diagnoses Pain in right hip (10/03/22) Pain in right leg (10/03/22) Physical Therapy Treatment Note PT-OP-A Visit Information Start: 06/20/22 08:06 Freq: Status: Active Protocol: Document 10/03/22 09:02 SW (Rec: 10/03/22 12:24 SW [id number]) Out-Patient Physical Therapy Visit Information Visit Information Visit Type Treatment Note Visit Note Pt reports difficulty getting in and out of car. Stands all day at work, aggravating symptoms. Visit Start Time 09:03 Visit Stop Time 09:55 Total Visit Minutes 55 Visit Number 16 Number of MACHINIST CLASS B Visits 1 Evaluation Information Evaluation Date 06/20/22 PT-OP-B Current Condition Start: 06/20/22 08:06 Freq: Status: Active Protocol: Document 07/16/22 14:31 SAK (Rec: 07/16/22 15:17 SAK [id number]) Current Condition History of Current Condition Onset Date years Current Complaints right hip and LE pain History of Current Condition Reports gradual worsening of right hip and LE pain over the course of years. 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 Wears lift in left and orthtics bilaterally; only footwear she can wear orthotics in. Gradual worsening of pain in right LE. Sees chiropractor 2x/month to straighten me out , sometimes uses foam roller. Hasn't gone to the gym for a long time, doing a lot of body weight exercise. Stands most of the day for work. Doesn't wear same shoes every day; anything that allows her to wear her custom orthotics. Massage 1x/mo. Prior Treatments and Tests MRI 06/13/22: 1. Asymmetric moderate right hip joint osteoarthritis as above. 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 No evidence of avascular necrosis of femoral head. 2. Mild distal right gluteus medius and minimus tendinosis at their insertion on greater trochanter. No other muscle or tendon signal abnormality. 3. Suggestion of extensive superior anterior right hip labral tear at 1 to 3 o'clock position. Treatment Goals Patient/Caregiver Goals Decrease pain, play in yard, be able to walk without pain. PT-OP-C Subjective Start: 06/20/22 08:06 Freq: Status: Active Protocol: Document 10/03/22 09:02 SW (Rec: 10/03/22 12:24 SW [id number]) OP-PT Subjective Patient Comments Patient Comments PT reports front hip pain, ( illiopsoas region) states she feel the pain the most when she is done with work, which requires her to be on her feet all day. PT-OP-G Mobility & Gait Start: 06/20/22 08:06 Freq: Status: Active Protocol: Document 06/20/22 14:29 [facility] (Rec: 06/26/22 16:19 [facility] [id number]) OP Gait Assessment Gait Gait Assistance Required: Independent Assistive Devices Assistive Device None Orthotic/Prosthetic Devices or Brace: Yes Gait Deviations General Gait Pattern Antalgic,Decreased Stride Length,Decreased Feet Clearance Factors Limiting Gait Function Factors Limiting Gait Function Decreased Sensation,Pain PT-OP-J Posture/Palpation/Skin Start: 06/20/22 08:06 Freq: Status: Active Protocol: Document 06/20/22 14:29 [facility] (Rec: 06/26/22 16:19 [facility] [id number]) Posture Evaluation Position Standing Head/C-Spine Posture Forward Head T-Spine Posture Increased Kyphosis L-Spine Posture Increased Lordosis Pelvis Posture Anteriorly Tilted Ankle/Foot Posture (L) Pronated,(R) Pronated Foot Arch (L) Low Arch,(R) Low Arch PT-OP-K Range of Motion Start: 06/20/22 08:06 Freq: Status: Active Protocol: Document 06/20/22 14:29 [facility] (Rec: 06/26/22 16:19 [facility] [id number]) Lumbar Spine Range of Motion Lumbar Spine Active Degrees Testing Position Standing Flexion 25 Extension 20 Rotation Left 40 Rotation Right 40 Lateral Flexion Left 35 Lateral Flexion Right 35 ROM Limitations Soft Tissue Tightness Hip Goniometric Range of Motion Hip Right Straight Leg Raise 55 Extension 5 Left Straight Leg Raise 60 Extension 10 PT-OP-L Special Tests Start: 06/20/22 08:06 Freq: Status: Active Protocol: Document 06/20/22 14:29 [facility] (Rec: 06/26/22 16:19 [facility] [id number]) Special Tests Hip Special Tests Anterior Labral Test Test Results positive right LELA Test Results negative PT-OP-M Strength Start: 06/20/22 08:06 Freq: Status: Active Protocol: Document 09/18/22 15:14 [facility] (Rec: 09/18/22 16:08 SAK [id number]) Hip Strength Hip Manual Muscle Testing Right Flexion (L2) 4 Good Extension (S1) 4- Good- Abduction 4- Good- Adduction 3+ Fair+ External Rotation 4- Good- Internal Rotation 4- Good- Left Flexion (L2) 4- Good- Extension (S1) 4- Good- Abduction 4- Good- Adduction 4- Good- External Rotation 4- Good- Internal Rotation 4 Good PT-OP-Q Treatments Start: 06/20/22 08:06 Freq: Status: Active Protocol: Document 10/03/22 09:02 SW (Rec: 10/03/22 12:24 [id number]) Cardio Equipment Elliptical Duration (Minutes) 8 Resistance 2 Gym Equipment Shuttle Recovery Unilateral Squats Resistance 25 (2 new bands) Shuttle Recovery Platform Stable Reps/Time 10x2 Bilateral Squats Resistance 50 (2 old bands) Reps/Time 10 x 2 Therapeutic Exercises Prone Exercises Plank Prone Exercise Name Plank on knees Side bilateral Equipment Used mat table Reps/Minutes 3 x 10 sec Comments VC for core stability and posture Standing Exercises mini squats Equipment Used @ rail Reps/Minutes 2 x 10 Comments VC for posture and glute activation Manual Therapy Treatment Soft Tissue Mobilization iliopsoas Body Location R iliacus, Mobilization Type Cross-Friction,Sustained Pressure Intensity/Depth Deep Body Position Hooklying Comments pin and stretch IT band, quads Body Location ITB, lateral quad, glut med Mobilization Type Cross-Friction,Rolling,Strain/ Counterstrain,Trigger Point Release Intensity/Depth Moderate Body Position Sidelying Manual Techniques Hip Flex Body Position hooklying, leg over plinth Reps/Duration 3x 20 sec stretch 8 sec contract Comments contract relax R hip flex (hip over plinth), isometric hip flex, increased ROM PT-OP-R Modalities Start: 06/20/22 08:06 Freq: Status: Active Protocol: Document 10/03/22 12:27 (Rec: 10/03/22 12:27 [id number]) Hot Pack/Cold Pack Treatment Hot Pack Location right hip, IT band Patient Position Hooklying Treatment Duration (minutes) 15 Patient Tolerance Good PT-OP-T Assessment and Plan Start: 06/20/22 08:06 Freq: Status: Active Protocol: Document 10/03/22 09:02 (Rec: 10/03/22 12:24 [id number]) Physical Therapy Assessment Goals Three Impairment activity intolerance Impairment LEFS score 44% Short Term Goal (STG) Improve LEFS score to at least 60%as measure of improved LE function and activity tolerance 09/18/22: goal achieved STG Duration goal met Software Development Project Manager Goal (LTG) Improve LEFS score to at least 75% as measure of improved LE function and activity tolerance LTG Duration 10/19/22 Two Impairment strength and flexibility impairments Short Term Goal (STG) Patient to be instructed in HEP of therapeutic exercises for strengthening, flexibility and stabilization of core 09/18/22: goal met, ongoing progression STG Duration goal met, ongoing progression and modification Software Development Project Manager Goal (LTG) Patient to be independent and compliant with HEP and demonstrate improved strength and flexibility to WNL to allow her to do usual activities including playing in the yard, standing for work , taking walks LTG Duration 10/19/22 One Impairment right sided pain lumbar, hip, loraine/lateral LE Impairment 6/10 on pain scale Short Term Goal (STG) Decrease pain to no greater than 3/10 with all usual activitie 09/18/22: goal not met. Variable, generally 5-7/10 with spike to 8/10 if doesn't do stretching Software Development Project Manager Goal (LTG) Decrease pain to no greater than 1-2/10 with all usual activities LTG Duration 10/19/22 Assessment Summary Assessment Pt. reported good response to standing elliptical today. After working on feet all day is when she has been feeling the most pain. She reported to PT with the pain present. Implented deep STM today, with some pin and stretch to the iliacus mm to decrease pain and increase hip mobility, positive patient feedback. Attempted plank today, quick mm fatigue, visible shaking. Physical Therapy Plan Frequency and Duration Frequency of Treatment 2x/Week Duration of treatment (weeks) 4 Plan of Care Start Date 09/18/22 Plan of Care End Date 10/19/22 Therapeutic Interventions Therapeutic Interventions Home Exercise Program,Joint Mobilizations,Manual Therapy, Neuromuscular Re-education, Self-Care/Home Management, Sensory Integration,Soft Tissue Mobilization, Therapeutic Activities, Therapeutic Exercises Modalities Cold Pack/Ice Massage,Electric Stimulation,Hot Packs, Infrared Therapy,Iontophoresis ,Ultrasound Next Visit Focus/Plan Next Note Type Treatment Note Next Visit Plan REview self-mobilization, continue core stab on foam roller, manual techniques.
--- NOTE | 2022-10-03 16:22 | PT.OTN ---
Current Diagnoses Pain in right hip (10/03/22) Pain in right leg (10/03/22) Physical Therapy Treatment Note PT-OP-A Visit Information Start: 06/20/22 08:06 Freq: Status: Active Protocol: Document 10/03/22 09:02 SW (Rec: 10/03/22 12:24 SW [id number]) Out-Patient Physical Therapy Visit Information Visit Information Visit Type Treatment Note Visit Note Pt reports difficulty getting in and out of car. Stands all day at work, aggravating symptoms. Visit Start Time 09:03 Visit Stop Time 09:58 Total Visit Minutes 55 Visit Number 16 Number of CORPORATE STRATEGY ANALYST Visits 1 Evaluation Information Evaluation Date 06/20/22 PT-OP-B Current Condition Start: 06/20/22 08:06 Freq: Status: Active Protocol: Document 07/16/22 14:31 SAK (Rec: 07/16/22 15:17 SAK [id number]) Current Condition History of Current Condition Onset Date years Current Complaints right hip and LE pain History of Current Condition Reports gradual worsening of right hip and LE pain over the course of years. 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 Wears lift in left and orthtics bilaterally; only footwear she can wear orthotics in. Gradual worsening of pain in right LE. Sees chiropractor 2x/month to straighten me out , sometimes uses foam roller. Hasn't gone to the gym for a long time, doing a lot of body weight exercise. Stands most of the day for work. Doesn't wear same shoes every day; anything that allows her to wear her custom orthotics. Massage 1x/mo. Prior Treatments and Tests MRI 06/13/22: 1. Asymmetric moderate right hip joint osteoarthritis as above. 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 No evidence of avascular necrosis of femoral head. 2. Mild distal right gluteus medius and minimus tendinosis at their insertion on greater trochanter. No other muscle or tendon signal abnormality. 3. Suggestion of extensive superior anterior right hip labral tear at 1 to 3 o'clock position. Treatment Goals Patient/Caregiver Goals Decrease pain, play in yard, be able to walk without pain. PT-OP-C Subjective Start: 06/20/22 08:06 Freq: Status: Active Protocol: Document 10/03/22 09:02 SW (Rec: 10/03/22 12:24 SW [id number]) OP-PT Subjective Patient Comments Patient Comments PT reports front hip pain, ( illiopsoas region) states she feel the pain the most when she is done with work, which requires her to be on her feet all day. PT-OP-G Mobility & Gait Start: 06/20/22 08:06 Freq: Status: Active Protocol: Document 06/20/22 14:29 [facility] (Rec: 06/26/22 16:19 [facility] [id number]) OP Gait Assessment Gait Gait Assistance Required: Independent Assistive Devices Assistive Device None Orthotic/Prosthetic Devices or Brace: Yes Gait Deviations General Gait Pattern Antalgic,Decreased Stride Length,Decreased Feet Clearance Factors Limiting Gait Function Factors Limiting Gait Function Decreased Sensation,Pain PT-OP-J Posture/Palpation/Skin Start: 06/20/22 08:06 Freq: Status: Active Protocol: Document 06/20/22 14:29 [facility] (Rec: 06/26/22 16:19 [facility] [id number]) Posture Evaluation Position Standing Head/C-Spine Posture Forward Head T-Spine Posture Increased Kyphosis L-Spine Posture Increased Lordosis Pelvis Posture Anteriorly Tilted Ankle/Foot Posture (L) Pronated,(R) Pronated Foot Arch (L) Low Arch,(R) Low Arch PT-OP-K Range of Motion Start: 06/20/22 08:06 Freq: Status: Active Protocol: Document 06/20/22 14:29 [facility] (Rec: 06/26/22 16:19 [facility] [id number]) Lumbar Spine Range of Motion Lumbar Spine Active Degrees Testing Position Standing Flexion 25 Extension 20 Rotation Left 40 Rotation Right 40 Lateral Flexion Left 35 Lateral Flexion Right 35 ROM Limitations Soft Tissue Tightness Hip Goniometric Range of Motion Hip Right Straight Leg Raise 55 Extension 5 Left Straight Leg Raise 60 Extension 10 PT-OP-L Special Tests Start: 06/20/22 08:06 Freq: Status: Active Protocol: Document 06/20/22 14:29 [facility] (Rec: 06/26/22 16:19 [facility] [id number]) Special Tests Hip Special Tests Anterior Labral Test Test Results positive right LELA Test Results negative PT-OP-M Strength Start: 06/20/22 08:06 Freq: Status: Active Protocol: Document 09/18/22 15:14 [facility] (Rec: 09/18/22 16:08 SAK [id number]) Hip Strength Hip Manual Muscle Testing Right Flexion (L2) 4 Good Extension (S1) 4- Good- Abduction 4- Good- Adduction 3+ Fair+ External Rotation 4- Good- Internal Rotation 4- Good- Left Flexion (L2) 4- Good- Extension (S1) 4- Good- Abduction 4- Good- Adduction 4- Good- External Rotation 4- Good- Internal Rotation 4 Good PT-OP-Q Treatments Start: 06/20/22 08:06 Freq: Status: Active Protocol: Document 10/03/22 09:02 SW (Rec: 10/03/22 12:24 [id number]) Cardio Equipment Elliptical Duration (Minutes) 8 Resistance 2 Gym Equipment Shuttle Recovery Unilateral Squats Resistance 25 (2 new bands) Shuttle Recovery Platform Stable Reps/Time 10x2 Bilateral Squats Resistance 50 (2 old bands) Reps/Time 10 x 2 Therapeutic Exercises Prone Exercises Plank Prone Exercise Name Plank on knees Side bilateral Equipment Used mat table Reps/Minutes 3 x 10 sec Comments VC for core stability and posture Standing Exercises mini squats Equipment Used @ rail Reps/Minutes 2 x 10 Comments VC for posture and glute activation Manual Therapy Treatment Soft Tissue Mobilization iliopsoas Body Location R iliacus, Mobilization Type Cross-Friction,Sustained Pressure Intensity/Depth Deep Body Position Hooklying Comments pin and stretch IT band, quads Body Location ITB, lateral quad, glut med Mobilization Type Cross-Friction,Rolling,Strain/ Counterstrain,Trigger Point Release Intensity/Depth Moderate Body Position Sidelying Manual Techniques Hip Flex Body Position hooklying, leg over plinth Reps/Duration 3x 20 sec stretch 8 sec contract Comments contract relax R hip flex (hip over plinth), isometric hip flex, increased ROM PT-OP-R Modalities Start: 06/20/22 08:06 Freq: Status: Active Protocol: Document 10/03/22 12:27 (Rec: 10/03/22 12:27 [id number]) Hot Pack/Cold Pack Treatment Hot Pack Location right hip, IT band Patient Position Hooklying Treatment Duration (minutes) 15 Patient Tolerance Good PT-OP-T Assessment and Plan Start: 06/20/22 08:06 Freq: Status: Active Protocol: Document 10/03/22 09:02 (Rec: 10/03/22 12:24 [id number]) Physical Therapy Assessment Goals Three Impairment activity intolerance Impairment LEFS score 44% Short Term Goal (STG) Improve LEFS score to at least 60%as measure of improved LE function and activity tolerance 09/18/22: goal achieved STG Duration goal met Director Of Event Sales Goal (LTG) Improve LEFS score to at least 75% as measure of improved LE function and activity tolerance LTG Duration 10/19/22 Two Impairment strength and flexibility impairments Short Term Goal (STG) Patient to be instructed in HEP of therapeutic exercises for strengthening, flexibility and stabilization of core 09/18/22: goal met, ongoing progression STG Duration goal met, ongoing progression and modification Director Of Event Sales Goal (LTG) Patient to be independent and compliant with HEP and demonstrate improved strength and flexibility to WNL to allow her to do usual activities including playing in the yard, standing for work , taking walks LTG Duration 10/19/22 One Impairment right sided pain lumbar, hip, loraine/lateral LE Impairment 6/10 on pain scale Short Term Goal (STG) Decrease pain to no greater than 3/10 with all usual activitie 09/18/22: goal not met. Variable, generally 5-7/10 with spike to 8/10 if doesn't do stretching Director Of Event Sales Goal (LTG) Decrease pain to no greater than 1-2/10 with all usual activities LTG Duration 10/19/22 Assessment Summary Assessment Pt. reported good response to standing elliptical today. After working on feet all day is when she has been feeling the most pain. She reported to PT with the pain present. Implented deep STM today, with some pin and stretch to the iliacus mm to decrease pain and increase hip mobility, positive patient feedback. Attempted plank today, quick mm fatigue, visible shaking. Physical Therapy Plan Frequency and Duration Frequency of Treatment 2x/Week Duration of treatment (weeks) 4 Plan of Care Start Date 09/18/22 Plan of Care End Date 10/19/22 Therapeutic Interventions Therapeutic Interventions Home Exercise Program,Joint Mobilizations,Manual Therapy, Neuromuscular Re-education, Self-Care/Home Management, Sensory Integration,Soft Tissue Mobilization, Therapeutic Activities, Therapeutic Exercises Modalities Cold Pack/Ice Massage,Electric Stimulation,Hot Packs, Infrared Therapy,Iontophoresis ,Ultrasound Next Visit Focus/Plan Next Note Type Treatment Note Next Visit Plan REview self-mobilization, continue core stab on foam roller, manual techniques.
--- NOTE | 2022-10-07 16:29 | PT.OTN ---
Current Diagnoses Pain in right hip (10/07/22) Pain in right leg (10/07/22) Physical Therapy Treatment Note PT-OP-A Visit Information Start: 06/20/22 08:06 Freq: Status: Active Protocol: Document 10/07/22 10:34 SAK (Rec: 10/07/22 11:16 [facility] [id number]) Out-Patient Physical Therapy Visit Information Visit Information Visit Type Treatment Note Visit Start Time 10:30 Visit Stop Time 11:25 Total Visit Minutes 55 Visit Number 16 Number of DOUBLE END PRODUCTION GRINDER Visits 0 PT-OP-B Current Condition Start: 06/20/22 08:06 Freq: Status: Active Protocol: Document 07/16/22 14:31 SAK (Rec: 07/16/22 15:17 [facility] [id number]) Current Condition History of Current Condition Onset Date years Current Complaints right hip and LE pain History of Current Condition Reports gradual worsening of right hip and LE pain over the course of years. 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 Wears lift in left and orthtics bilaterally; only footwear she can wear orthotics in. Gradual worsening of pain in right LE. Sees chiropractor 2x/month to straighten me out , sometimes uses foam roller. Hasn't gone to the gym for a long time, doing a lot of body weight exercise. Stands most of the day for work. Doesn't wear same shoes every day; anything that allows her to wear her custom orthotics. Massage 1x/mo. Prior Treatments and Tests MRI 06/13/22: 1. Asymmetric moderate right hip joint osteoarthritis as above. 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 No evidence of avascular necrosis of femoral head. 2. Mild distal right gluteus medius and minimus tendinosis at their insertion on greater trochanter. No other muscle or tendon signal abnormality. 3. Suggestion of extensive superior anterior right hip labral tear at 1 to 3 o'clock position. Treatment Goals Patient/Caregiver Goals Decrease pain, play in yard, be able to walk without pain. PT-OP-C Subjective Start: 06/20/22 08:06 Freq: Status: Active Protocol: Document 10/07/22 10:34 SAK (Rec: 10/07/22 11:16 [facility] [id number]) OP-PT Subjective Patient Comments Patient Comments States was sore after last session, then spent most of weekend in the car. Pain-free right now. Patient emotionally not doing well due to ex-'s diagnosis of terminal CA PT-OP-G Mobility & Gait Start: 06/20/22 08:06 Freq: Status: Active Protocol: Document 06/20/22 14:29 [facility] (Rec: 06/26/22 16:19 [facility] [id number]) OP Gait Assessment Gait Gait Assistance Required: Independent Assistive Devices Assistive Device None Orthotic/Prosthetic Devices or Brace: Yes Gait Deviations General Gait Pattern Antalgic,Decreased Stride Length,Decreased Feet Clearance Factors Limiting Gait Function Factors Limiting Gait Function Decreased Sensation,Pain PT-OP-J Posture/Palpation/Skin Start: 06/20/22 08:06 Freq: Status: Active Protocol: Document 06/20/22 14:29 [facility] (Rec: 06/26/22 16:19 [facility] [id number]) Posture Evaluation Position Standing Head/C-Spine Posture Forward Head T-Spine Posture Increased Kyphosis L-Spine Posture Increased Lordosis Pelvis Posture Anteriorly Tilted Ankle/Foot Posture (L) Pronated,(R) Pronated Foot Arch (L) Low Arch,(R) Low Arch PT-OP-K Range of Motion Start: 06/20/22 08:06 Freq: Status: Active Protocol: Document 06/20/22 14:29 [facility] (Rec: 06/26/22 16:19 [facility] [id number]) Lumbar Spine Range of Motion Lumbar Spine Active Degrees Testing Position Standing Flexion 25 Extension 20 Rotation Left 40 Rotation Right 40 Lateral Flexion Left 35 Lateral Flexion Right 35 ROM Limitations Soft Tissue Tightness Hip Goniometric Range of Motion Hip Right Straight Leg Raise 55 Extension 5 Left Straight Leg Raise 60 Extension 10 PT-OP-L Special Tests Start: 06/20/22 08:06 Freq: Status: Active Protocol: Document 06/20/22 14:29 [facility] (Rec: 06/26/22 16:19 [facility] [id number]) Special Tests Hip Special Tests Anterior Labral Test Test Results positive right LELA Test Results negative PT-OP-M Strength Start: 06/20/22 08:06 Freq: Status: Active Protocol: Document 09/18/22 15:14 [facility] (Rec: 09/18/22 16:08 [facility] [id number]) Hip Strength Hip Manual Muscle Testing Right Flexion (L2) 4 Good Extension (S1) 4- Good- Abduction 4- Good- Adduction 3+ Fair+ External Rotation 4- Good- Internal Rotation 4- Good- Left Flexion (L2) 4- Good- Extension (S1) 4- Good- Abduction 4- Good- Adduction 4- Good- External Rotation 4- Good- Internal Rotation 4 Good PT-OP-Q Treatments Start: 06/20/22 08:06 Freq: Status: Active Protocol: Document 10/07/22 10:34 [facility] (Rec: 10/07/22 11:16 [facility] [id number]) Cardio Equipment Elliptical Duration (Minutes) 8 Resistance 2 Therapeutic Exercises Supine Exercises supine foam roller Supine Exercise Name DLS UE and LE movements nazia and unil Reps/Minutes 5min single leg bridging Reps/Minutes 10x Prone Exercises Plank Prone Exercise Name Plank on knees Side bilateral Equipment Used mat table Reps/Minutes 60 sec, Comments VC for core stability and posture Sidelying Exercises sidelying hip abd Sidelying Exercise Name with hip ext, foot on wall Reps/Minutes 10x2 Standing Exercises Monster walks Standing Exercise Name fwd,bck Equipment Used red band mini squats Equipment Used blue foam under feet Reps/Minutes 2 x 10 Comments VC and mirror for visual feedback for posture and glute activation sidestepping Equipment Used red band Reps/Minutes 10 ft x 2 each direction Manual Therapy Treatment Soft Tissue Mobilization iliopsoas Body Location R iliacus,TFL Mobilization Type Cross-Friction,Sustained Pressure Intensity/Depth Deep Body Position Hooklying Comments pin and stretch IT band, quads Body Location ITB, lateral quad, glut med Mobilization Type Cross-Friction,Rolling,Strain/ Counterstrain,Trigger Point Release Intensity/Depth Moderate Body Position Sidelying Manual Techniques Hip Flex Body Position hooklying, leg over plinth Reps/Duration 3x 20 sec stretch 8 sec contract Comments contract relax R hip flex (hip over plinth), isometric hip flex, increased ROM PT-OP-R Modalities Start: 06/20/22 08:06 Freq: Status: Active Protocol: Document 10/07/22 10:34 [facility] (Rec: 10/07/22 11:16 [facility] [id number]) Hot Pack/Cold Pack Treatment Hot Pack Location right hip, IT band Patient Position Hooklying Treatment Duration (minutes) 15 Patient Tolerance Good PT-OP-T Assessment and Plan Start: 06/20/22 08:06 Freq: Status: Active Protocol: Document 10/07/22 10:34 CARLA (Rec: 10/07/22 11:16 SAK [id number]) Physical Therapy Assessment Goals Three Impairment activity intolerance Impairment LEFS score 44% Short Term Goal (STG) Improve LEFS score to at least 60%as measure of improved LE function and activity tolerance 09/18/22: goal achieved STG Duration goal met Fpc Goal (LTG) Improve LEFS score to at least 75% as measure of improved LE function and activity tolerance LTG Duration 10/19/22 Two Impairment strength and flexibility impairments Short Term Goal (STG) Patient to be instructed in HEP of therapeutic exercises for strengthening, flexibility and stabilization of core 09/18/22: goal met, ongoing progression STG Duration goal met, ongoing progression and modification Dye Beck Reel Operator Goal (LTG) Patient to be independent and compliant with HEP and demonstrate improved strength and flexibility to WNL to allow her to do usual activities including playing in the yard, standing for work , taking walks LTG Duration 10/19/22 One Impairment right sided pain lumbar, hip, loraine/lateral LE Impairment 6/10 on pain scale Short Term Goal (STG) Decrease pain to no greater than 3/10 with all usual activitie 09/18/22: goal not met. Variable, generally 5-7/10 with spike to 8/10 if doesn't do stretching Fpc Goal (LTG) Decrease pain to no greater than 1-2/10 with all usual activities LTG Duration 10/19/22 Assessment Summary Assessment Progression of ex today with fatigue but denied inc pain. Stressing strengthening, core stab compliance. Physical Therapy Plan Frequency and Duration Frequency of Treatment 2x/Week Duration of treatment (weeks) 4 Plan of Care Start Date 09/18/22 Plan of Care End Date 10/19/22 Therapeutic Interventions Therapeutic Interventions Home Exercise Program,Joint Mobilizations,Manual Therapy, Neuromuscular Re-education, Self-Care/Home Management, Sensory Integration,Soft Tissue Mobilization, Therapeutic Activities, Therapeutic Exercises Modalities Cold Pack/Ice Massage,Electric Stimulation,Hot Packs, Infrared Therapy,Iontophoresis ,Ultrasound Next Visit Focus/Plan Next Note Type Treatment Note Next Visit Plan Continue progression of strengthening and core stab. Manual techniques and MH PRN
--- NOTE | 2022-10-10 17:16 | PT.OTN ---
Current Diagnoses Pain in right hip (10/10/22) Pain in right leg (10/10/22) Physical Therapy Treatment Note PT-OP-A Visit Information Start: 06/20/22 08:06 Freq: Status: Active Protocol: Document 10/10/22 13:49 SAK (Rec: 10/10/22 14:32 [facility] [id number]) Out-Patient Physical Therapy Visit Information Visit Information Visit Type Treatment Note Visit Start Time 13:50 Visit Stop Time 14:45 Total Visit Minutes 55 Visit Number 17 Number of CENTR[employer] MELT SPECIALIST Visits 0 PT-OP-B Current Condition Start: 06/20/22 08:06 Freq: Status: Active Protocol: Document 07/16/22 14:31 SAK (Rec: 07/16/22 15:17 SAK [id number]) Current Condition History of Current Condition Onset Date years Current Complaints right hip and LE pain History of Current Condition Reports gradual worsening of right hip and LE pain over the course of years. 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 Wears lift in left and orthtics bilaterally; only footwear she can wear orthotics in. Gradual worsening of pain in right LE. Sees chiropractor 2x/month to straighten me out , sometimes uses foam roller. Hasn't gone to the gym for a long time, doing a lot of body weight exercise. Stands most of the day for work. Doesn't wear same shoes every day; anything that allows her to wear her custom orthotics. Massage 1x/mo. Prior Treatments and Tests MRI 06/13/22: 1. Asymmetric moderate right hip joint osteoarthritis as above. 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 No evidence of avascular necrosis of femoral head. 2. Mild distal right gluteus medius and minimus tendinosis at their insertion on greater trochanter. No other muscle or tendon signal abnormality. 3. Suggestion of extensive superior anterior right hip labral tear at 1 to 3 o'clock position. Treatment Goals Patient/Caregiver Goals Decrease pain, play in yard, be able to walk without pain. PT-OP-C Subjective Start: 06/20/22 08:06 Freq: Status: Active Protocol: Document 10/10/22 13:49 SAK (Rec: 10/10/22 14:32 [facility] [id number]) OP-PT Subjective Patient Comments Patient Comments Doing better today, got herself to the gym and pool this week. Taking Meloxicam 1x /day, helping. PT-OP-G Mobility & Gait Start: 06/20/22 08:06 Freq: Status: Active Protocol: Document 06/20/22 14:29 [facility] (Rec: 06/26/22 16:19 [facility] [id number]) OP Gait Assessment Gait Gait Assistance Required: Independent Assistive Devices Assistive Device None Orthotic/Prosthetic Devices or Brace: Yes Gait Deviations General Gait Pattern Antalgic,Decreased Stride Length,Decreased Feet Clearance Factors Limiting Gait Function Factors Limiting Gait Function Decreased Sensation,Pain PT-OP-J Posture/Palpation/Skin Start: 06/20/22 08:06 Freq: Status: Active Protocol: Document 06/20/22 14:29 [facility] (Rec: 06/26/22 16:19 [facility] [id number]) Posture Evaluation Position Standing Head/C-Spine Posture Forward Head T-Spine Posture Increased Kyphosis L-Spine Posture Increased Lordosis Pelvis Posture Anteriorly Tilted Ankle/Foot Posture (L) Pronated,(R) Pronated Foot Arch (L) Low Arch,(R) Low Arch PT-OP-K Range of Motion Start: 06/20/22 08:06 Freq: Status: Active Protocol: Document 06/20/22 14:29 [facility] (Rec: 06/26/22 16:19 [facility] [id number]) Lumbar Spine Range of Motion Lumbar Spine Active Degrees Testing Position Standing Flexion 25 Extension 20 Rotation Left 40 Rotation Right 40 Lateral Flexion Left 35 Lateral Flexion Right 35 ROM Limitations Soft Tissue Tightness Hip Goniometric Range of Motion Hip Right Straight Leg Raise 55 Extension 5 Left Straight Leg Raise 60 Extension 10 PT-OP-L Special Tests Start: 06/20/22 08:06 Freq: Status: Active Protocol: Document 06/20/22 14:29 [facility] (Rec: 06/26/22 16:19 [facility] [id number]) Special Tests Hip Special Tests Anterior Labral Test Test Results positive right LELA Test Results negative PT-OP-M Strength Start: 06/20/22 08:06 Freq: Status: Active Protocol: Document 09/18/22 15:14 [facility] (Rec: 09/18/22 16:08 [facility] [id number]) Hip Strength Hip Manual Muscle Testing Right Flexion (L2) 4 Good Extension (S1) 4- Good- Abduction 4- Good- Adduction 3+ Fair+ External Rotation 4- Good- Internal Rotation 4- Good- Left Flexion (L2) 4- Good- Extension (S1) 4- Good- Abduction 4- Good- Adduction 4- Good- External Rotation 4- Good- Internal Rotation 4 Good PT-OP-Q Treatments Start: 06/20/22 08:06 Freq: Status: Active Protocol: Document 10/10/22 13:49 [facility] (Rec: 10/10/22 14:32 [facility] [id number]) Cardio Equipment Elliptical Duration (Minutes) 8 Resistance 2 Other cues for postural alignment, core activation Gym Equipment Shuttle Balance chains red Details side bal, staggered bal and wt shift Reps/Duration 5 min Therapeutic Ball supine Exercise Details bridge, LTR Ball Size/Color 65 cm Body Position Supine Reps/Duration 10x ea Comments legs on ball seated Exercise Details pelvic tilts A/P, lat, LAQ, opp UE/LE lift Ball Size/Color red 65 cm Body Position seated Reps/Duration 10 min Therapeutic Exercises Supine Exercises stretching: Supine Exercise Name HS Reps/Minutes 2x30 Manual Therapy Treatment Joint Mobilizations right hip Direction inf glide Grade III Body Position Hooklying Reps/Duration 10min Comments PT performed PT-OP-R Modalities Start: 06/20/22 08:06 Freq: Status: Active Protocol: Document 10/10/22 13:49 [facility] (Rec: 10/10/22 14:32 [facility] [id number]) Hot Pack/Cold Pack Treatment Hot Pack Location right hip, IT band Patient Position Hooklying Treatment Duration (minutes) 15 Patient Tolerance Good PT-OP-T Assessment and Plan Start: 06/20/22 08:06 Freq: Status: Active Protocol: Document 10/10/22 13:49 [facility] (Rec: 10/10/22 14:32 [facility] [id number]) Physical Therapy Assessment Goals Three Impairment activity intolerance Impairment LEFS score 44% Short Term Goal (STG) Improve LEFS score to at least 60%as measure of improved LE function and activity tolerance 09/18/22: goal achieved STG Duration goal met Certified Nurse Practitioner Goal (LTG) Improve LEFS score to at least 75% as measure of improved LE function and activity tolerance LTG Duration 10/19/22 Two Impairment strength and flexibility impairments Short Term Goal (STG) Patient to be instructed in HEP of therapeutic exercises for strengthening, flexibility and stabilization of core 09/18/22: goal met, ongoing progression STG Duration goal met, ongoing progression and modification Snf Goal (LTG) Patient to be independent and compliant with HEP and demonstrate improved strength and flexibility to WNL to allow her to do usual activities including playing in the yard, standing for work , taking walks LTG Duration 10/19/22 One Impairment right sided pain lumbar, hip, loraine/lateral LE Impairment 6/10 on pain scale Short Term Goal (STG) Decrease pain to no greater than 3/10 with all usual activitie 09/18/22: goal not met. Variable, generally 5-7/10 with spike to 8/10 if doesn't do stretching Snf Goal (LTG) Decrease pain to no greater than 1-2/10 with all usual activities LTG Duration 10/19/22 Assessment Summary Assessment Good compliance with going to pool for aquatic exercise and going to the gym with good tolerance. Patient reported feeling it is life changing. Fair tolerance for HEP; focused mostly on flexibility. Progressed to seated and supine therapy bal ex. Physical Therapy Plan Frequency and Duration Frequency of Treatment 2x/Week Duration of treatment (weeks) 4 Plan of Care Start Date 09/18/22 Plan of Care End Date 10/19/22 Therapeutic Interventions Therapeutic Interventions Home Exercise Program,Joint Mobilizations,Manual Therapy, Neuromuscular Re-education, Self-Care/Home Management, Sensory Integration,Soft Tissue Mobilization, Therapeutic Activities, Therapeutic Exercises Modalities Cold Pack/Ice Massage,Electric Stimulation,Hot Packs, Infrared Therapy,Iontophoresis ,Ultrasound Next Visit Focus/Plan Next Note Type Treatment Note Next Visit Plan Continue progression of strengthening and core stab. Manual techniques and MH PRN
--- NOTE | 2022-10-14 13:46 | PT.OTN ---
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 Wears lift in left and orthtics bilaterally; only footwear she can wear orthotics in. Gradual worsening of pain in right LE. Sees chiropractor 2x/month to straighten me out , sometimes uses foam roller. Hasn't gone to the gym for a long time, doing a lot of body weight exercise. Stands most of the day for work. Doesn't wear same shoes every day; anything that allows her to wear her custom orthotics. Massage 1x/mo. Prior Treatments and Tests MRI 06/13/22: 1. Asymmetric moderate right hip joint osteoarthritis as above. 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 No evidence of avascular necrosis of femoral head. 2. Mild distal right gluteus medius and minimus tendinosis at their insertion on greater trochanter. No other muscle or tendon signal abnormality. 3. Suggestion of extensive superior anterior right hip labral tear at 1 to 3 o'clock position. Treatment Goals Patient/Caregiver Goals Decrease pain, play in yard, be able to walk without pain. PT-OP-C Subjective Start: 06/20/22 08:06 Freq: Status: Active Protocol: Document 10/14/22 10:00 NBM (Rec: 10/14/22 10:37 NBM [id number]) OP-PT Subjective Patient Comments Patient Comments Pt reports she has no hip pain today. She gets distracted at home and hasn't been as good with home ex's, but she goes to the pool regularly. PT-OP-G Mobility & Gait Start: 06/20/22 08:06 Freq: Status: Active Protocol: Document 06/20/22 14:29 [facility] (Rec: 06/26/22 16:19 [facility] [id number]) OP Gait Assessment Gait Gait Assistance Required: Independent Assistive Devices Assistive Device None Orthotic/Prosthetic Devices or Brace: Yes Gait Deviations General Gait Pattern Antalgic,Decreased Stride Length,Decreased Feet Clearance Factors Limiting Gait Function Factors Limiting Gait Function Decreased Sensation,Pain PT-OP-J Posture/Palpation/Skin Start: 06/20/22 08:06 Freq: Status: Active Protocol: Document 06/20/22 14:29 [facility] (Rec: 06/26/22 16:19 [facility] [id number]) Posture Evaluation Position Standing Head/C-Spine Posture Forward Head T-Spine Posture Increased Kyphosis L-Spine Posture Increased Lordosis Pelvis Posture Anteriorly Tilted Ankle/Foot Posture (L) Pronated,(R) Pronated Foot Arch (L) Low Arch,(R) Low Arch PT-OP-K Range of Motion Start: 06/20/22 08:06 Freq: Status: Active Protocol: Document 06/20/22 14:29 [facility] (Rec: 06/26/22 16:19 [facility] [id number]) Lumbar Spine Range of Motion Lumbar Spine Active Degrees Testing Position Standing Flexion 25 Extension 20 Rotation Left 40 Rotation Right 40 Lateral Flexion Left 35 Lateral Flexion Right 35 ROM Limitations Soft Tissue Tightness Hip Goniometric Range of Motion Hip Right Straight Leg Raise 55 Extension 5 Left Straight Leg Raise 60 Extension 10 PT-OP-L Special Tests Start: 06/20/22 08:06 Freq: Status: Active Protocol: Document 06/20/22 14:29 [facility] (Rec: 06/26/22 16:19 [facility] [id number]) Special Tests Hip Special Tests Anterior Labral Test Test Results positive right LELA Test Results negative PT-OP-M Strength Start: 06/20/22 08:06 Freq: Status: Active Protocol: Document 09/18/22 15:14 [facility] (Rec: 09/18/22 16:08 [facility] [id number]) Hip Strength Hip Manual Muscle Testing Right Flexion (L2) 4 Good Extension (S1) 4- Good- Abduction 4- Good- Adduction 3+ Fair+ External Rotation 4- Good- Internal Rotation 4- Good- Left Flexion (L2) 4- Good- Extension (S1) 4- Good- Abduction 4- Good- Adduction 4- Good- External Rotation 4- Good- Internal Rotation 4 Good PT-OP-Q Treatments Start: 06/20/22 08:06 Freq: Status: Active Protocol: Document 10/14/22 10:00 NB (Rec: 10/14/22 10:37 [facility] [id number]) Cardio Equipment Elliptical Duration (Minutes) 8 Resistance 2 Other cues for postural alignment, core activation Gym Equipment Shuttle Balance chains red Details side bal, staggered bal and wt shift Reps/Duration 5 min Therapeutic Exercises Supine Exercises single leg bridging Reps/Minutes 10x Comments cues for breathing bridge Supine Exercise Name HEP ball squeeze Supine Exercise Name reviewed HEP Equipment Used yellow small ball Reps/Minutes 10x Comments cued allow SI/post hips releas little for self mob. Prone Exercises Plank Prone Exercise Name Plank on knees Side bilateral Equipment Used mat table Reps/Minutes 60 sec, Comments VC for core stability and posture Sidelying Exercises open book Sidelying Exercise Name HEP Side bilateral Reps/Minutes x10 ea Comments vc for shoulder depression reverse clamshell Sidelying Exercise Name HEP Reps/Minutes 10x5 sidelying hip abd Sidelying Exercise Name with hip ext, foot on wall Reps/Minutes 10x2 clam Sidelying Exercise Name reviewed HEP Reps/Minutes 10x5 Comments cued TA, PPT, longer hold at top lift tolerant, slower pacing Standing Exercises Monster walks Standing Exercise Name fwd,bck Equipment Used red band Reps/Minutes 20ft x 2 Comments less catwalk, more monster walk sidestepping Equipment Used red band Reps/Minutes 10 ft x 2 each direction leg pendulum Standing Exercise Name HEP review PT-OP-R Modalities Start: 06/20/22 08:06 Freq: Status: Active Protocol: Document 10/14/22 10:00 NBM (Rec: 10/14/22 10:37 [facility] [id number]) Hot Pack/Cold Pack Treatment Hot Pack Location right hip, IT band Patient Position Hooklying Treatment Duration (minutes) 15 Patient Tolerance Good PT-OP-T Assessment and Plan Start: 06/20/22 08:06 Freq: Status: Active Protocol: Document 10/14/22 10:00 AMY (Rec: 10/14/22 10:37 [facility] [id number]) Physical Therapy Assessment Impairments Impairments Activity Tolerance,Gait,Pain, ROM,Soft Tissue Mobility, Strength Goals Three Impairment activity intolerance Impairment LEFS score 44% Short Term Goal (STG) Improve LEFS score to at least 60%as measure of improved LE function and activity tolerance 09/18/22: goal achieved STG Duration goal met Awning Spreader Goal (LTG) Improve LEFS score to at least 75% as measure of improved LE function and activity tolerance LTG Duration 10/19/22 Two Impairment strength and flexibility impairments Short Term Goal (STG) Patient to be instructed in HEP of therapeutic exercises for strengthening, flexibility and stabilization of core 09/18/22: goal met, ongoing progression STG Duration goal met, ongoing progression and modification Intermediate Goal (LTG) Patient to be independent and compliant with HEP and demonstrate improved strength and flexibility to WNL to allow her to do usual activities including playing in the yard, standing for work , taking walks LTG Duration 10/19/22 One Impairment right sided pain lumbar, hip, loraine/lateral LE Impairment 6/10 on pain scale Short Term Goal (STG) Decrease pain to no greater than 3/10 with all usual activitie 09/18/22: goal not met. Variable, generally 5-7/10 with spike to 8/10 if doesn't do stretching Awning Spreader Goal (LTG) Decrease pain to no greater than 1-2/10 with all usual activities LTG Duration 10/19/22 Assessment Summary Assessment Pt requires cues with resisted sidestepping and fwd/bwd for excessive R hip external rotation, and for fwd/bwd to maintain hip width instead of near tandem. Her self- awareness improves w/ cueing, repetition and visual feedback . She demonstrates good tolerance for ex's this treatment session w/ no increase in hip pain. Pt is challenged w/ maintaining balance on shuttle balance. Physical Therapy Plan Frequency and Duration Frequency of Treatment 2x/Week Duration of treatment (weeks) 4 Plan of Care Start Date 09/18/22 Plan of Care End Date 10/19/22 Therapeutic Interventions Therapeutic Interventions Home Exercise Program,Joint Mobilizations,Manual Therapy, Neuromuscular Re-education, Self-Care/Home Management, Sensory Integration,Soft Tissue Mobilization, Therapeutic Activities, Therapeutic Exercises Modalities Cold Pack/Ice Massage,Electric Stimulation,Hot Packs, Infrared Therapy,Iontophoresis ,Ultrasound Next Visit Focus/Plan Next Note Type Treatment Note Next Visit Plan Continue progression of strengthening and core stab. Manual techniques and MH PRN
--- NOTE | 2022-10-17 16:14 | PT.OTN ---
Current Diagnoses Pain in right hip (10/17/22) Pain in right leg (10/17/22) Physical Therapy Treatment Note PT-OP-A Visit Information Start: 06/20/22 08:06 Freq: Status: Active Protocol: Document 10/17/22 15:18 SAK (Rec: 10/17/22 16:14 SAK [id number]) Out-Patient Physical Therapy Visit Information Visit Information Visit Type Treatment Note Visit Start Time 15:18 Visit Stop Time 16:13 Total Visit Minutes 55 Visit Number 19 PT-OP-B Current Condition Start: 06/20/22 08:06 Freq: Status: Active Protocol: Document 07/16/22 14:31 SAK (Rec: 07/16/22 15:17 SAK [id number]) Current Condition History of Current Condition Onset Date years Current Complaints right hip and LE pain History of Current Condition Reports gradual worsening of right hip and LE pain over the course of years. 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 Wears lift in left and orthtics bilaterally; only footwear she can wear orthotics in. Gradual worsening of pain in right LE. Sees chiropractor 2x/month to straighten me out , sometimes uses foam roller. Hasn't gone to the gym for a long time, doing a lot of body weight exercise. Stands most of the day for work. Doesn't wear same shoes every day; anything that allows her to wear her custom orthotics. Massage 1x/mo. Prior Treatments and Tests MRI 06/13/22: 1. Asymmetric moderate right hip joint osteoarthritis as above. 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 No evidence of avascular necrosis of femoral head. 2. Mild distal right gluteus medius and minimus tendinosis at their insertion on greater trochanter. No other muscle or tendon signal abnormality. 3. Suggestion of extensive superior anterior right hip labral tear at 1 to 3 o'clock position. Treatment Goals Patient/Caregiver Goals Decrease pain, play in yard, be able to walk without pain. PT-OP-C Subjective Start: 06/20/22 08:06 Freq: Status: Active Protocol: Document 10/14/22 10:00 NBM (Rec: 10/14/22 10:37 NBM [id number]) OP-PT Subjective Patient Comments Patient Comments Pt reports she has no hip pain today. She gets distracted at home and hasn't been as good with home ex's, but she goes to the pool regularly. PT-OP-G Mobility & Gait Start: 06/20/22 08:06 Freq: Status: Active Protocol: Document 06/20/22 14:29 [facility] (Rec: 06/26/22 16:19 [facility] [id number]) OP Gait Assessment Gait Gait Assistance Required: Independent Assistive Devices Assistive Device None Orthotic/Prosthetic Devices or Brace: Yes Gait Deviations General Gait Pattern Antalgic,Decreased Stride Length,Decreased Feet Clearance Factors Limiting Gait Function Factors Limiting Gait Function Decreased Sensation,Pain PT-OP-J Posture/Palpation/Skin Start: 06/20/22 08:06 Freq: Status: Active Protocol: Document 06/20/22 14:29 [facility] (Rec: 06/26/22 16:19 [facility] [id number]) Posture Evaluation Position Standing Head/C-Spine Posture Forward Head T-Spine Posture Increased Kyphosis L-Spine Posture Increased Lordosis Pelvis Posture Anteriorly Tilted Ankle/Foot Posture (L) Pronated,(R) Pronated Foot Arch (L) Low Arch,(R) Low Arch PT-OP-K Range of Motion Start: 06/20/22 08:06 Freq: Status: Active Protocol: Document 06/20/22 14:29 [facility] (Rec: 06/26/22 16:19 [facility] [id number]) Lumbar Spine Range of Motion Lumbar Spine Active Degrees Testing Position Standing Flexion 25 Extension 20 Rotation Left 40 Rotation Right 40 Lateral Flexion Left 35 Lateral Flexion Right 35 ROM Limitations Soft Tissue Tightness Hip Goniometric Range of Motion Hip Right Straight Leg Raise 55 Extension 5 Left Straight Leg Raise 60 Extension 10 PT-OP-L Special Tests Start: 06/20/22 08:06 Freq: Status: Active Protocol: Document 06/20/22 14:29 [facility] (Rec: 06/26/22 16:19 [facility] [id number]) Special Tests Hip Special Tests Anterior Labral Test Test Results positive right LELA Test Results negative PT-OP-M Strength Start: 06/20/22 08:06 Freq: Status: Active Protocol: Document 09/18/22 15:14 [facility] (Rec: 09/18/22 16:08 [facility] [id number]) Hip Strength Hip Manual Muscle Testing Right Flexion (L2) 4 Good Extension (S1) 4- Good- Abduction 4- Good- Adduction 3+ Fair+ External Rotation 4- Good- Internal Rotation 4- Good- Left Flexion (L2) 4- Good- Extension (S1) 4- Good- Abduction 4- Good- Adduction 4- Good- External Rotation 4- Good- Internal Rotation 4 Good PT-OP-Q Treatments Start: 06/20/22 08:06 Freq: Status: Active Protocol: Document 10/17/22 15:18 [facility] (Rec: 10/17/22 16:14 [facility] [id number]) Cardio Equipment Elliptical Duration (Minutes) 8 Resistance 2 Other cues for postural alignment, core activation Therapeutic Exercises Supine Exercises isometric crunch Supine Exercise Name straight,diagonal Equipment Used 55cm ball Reps/Minutes 10x ea supine bicycle Reps/Minutes 10x Comments cues for small motion Prone Exercises Plank Prone Exercise Name Plank on knees Side bilateral Equipment Used mat table Reps/Minutes 60 sec, Comments VC for core stability and posture Standing Exercises trunk rotation Equipment Used L1 TB Reps/Minutes 10x Paleoff press Equipment Used L1 TB Reps/Minutes 10x PT-OP-R Modalities Start: 06/20/22 08:06 Freq: Status: Active Protocol: Document 10/17/22 15:18 [facility] (Rec: 10/17/22 16:14 [facility] [id number]) Hot Pack/Cold Pack Treatment Hot Pack Location right hip, IT band Patient Position Hooklying Treatment Duration (minutes) 15 Patient Tolerance Good PT-OP-T Assessment and Plan Start: 06/20/22 08:06 Freq: Status: Active Protocol: Document 10/17/22 15:18 [facility] (Rec: 10/17/22 16:14 [facility] [id number]) Physical Therapy Assessment Impairments Impairments Activity Tolerance,Gait,Pain, ROM,Soft Tissue Mobility, Strength Goals Three Impairment activity intolerance Impairment LEFS score 44% Short Term Goal (STG) Improve LEFS score to at least 60%as measure of improved LE function and activity tolerance 09/18/22: goal achieved STG Duration goal met Fdc Goal (LTG) Improve LEFS score to at least 75% as measure of improved LE function and activity tolerance 10/17/22: good goal progress LTG Duration 10/19/22 Two Impairment strength and flexibility impairments Short Term Goal (STG) Patient to be instructed in HEP of therapeutic exercises for strengthening, flexibility and stabilization of core 3/29/23: goal met, ongoing progression STG Duration goal met, ongoing progression and modification Fdc Goal (LTG) Patient to be independent and compliant with HEP and demonstrate improved strength and flexibility to WNL to allow her to do usual activities including playing in the yard, standing for work , taking walks 10/17/22: good goal progress LTG Duration 10/19/22 One Impairment right sided pain lumbar, hip, loraine/lateral LE Impairment 6/10 on pain scale Short Term Goal (STG) Decrease pain to no greater than 3/10 with all usual activitie 09/18/22: goal not met. Variable, generally 5-7/10 with spike to 8/10 if doesn't do stretching STG Duration goal met though with occasional spikes Plumbing Mechanic Goal (LTG) Decrease pain to no greater than 1-2/10 with all usual activities 10/17/22: good goal progress, worst pain with work LTG Duration 10/19/22 Assessment Summary Assessment Patient has made good progress with combination land and aquatic exercises and manual techniques, patient education regarding body mechanics and instruction in HEP and self mobilization and massage techniques. She is independent with HEP, is goiing to the pool on her own and has started going back to the gym. Feel she will continue to improve with consistent exercise, self-care including self massage, and use of heat. Physical Therapy Plan Discharge Physical Therapy Discharge Comments Discharged with HEP, doing aquatic exercise, has returned to the gym. Should continue to progress.
== END 2023-01-22 10:00 | disposition home or self-care (01) ==
LOC: PHYS 15:15
PROVIDERS: Family Provider Nurse Practitioner; PCP Nurse Practitioner; Referring Provider Nurse Practitioner; Visit Provider Nurse Practitioner
DX: M25.551 Pain in right hip (principal); M79.604 Pain in right leg
CPT/HCPCS: 97010; 97110; 97140; 97162; 97535

== ENCOUNTER 2022-10-29 10:44 | Day surgery (SDC) | payer OTHER, SELFPAY ==
[2022-10-29] MEDS: LACTATED RINGERS 1,000 ML 200 ML IV (11:16)
[2022-10-29 11:32] VITALS: BP 120/79; PULSE 77; RESP 16; TEMP 36.5; O2SAT 100
--- NOTE | 2022-10-29 11:54 | PM.HP.1 ---
History of Present Illness History of Present Illness Date Patient Seen: 10/29/22 Time Patient Seen: 11:54 Chief complaint: Colonoscopy Narrative: The patient presents for colorectal screening. They have never had any previous examination for such. No personal or family history of colon cancer. On further history denies any recent gastrointestinal symptoms with the exception of occasional blood per rectum which she attributes to hemorrhoid disease.. No nausea, vomiting, abdominal pain, loss of appetite, unexplained weight loss, change in bowel habits. [facility] Medical History Abnormal Pap smear of cervix (~1996) Anxiety Asthma (~1975) Bilateral foot pain Bilateral hand pain Carpal tunnel syndrome (~2016) Cervical dysplasia (~1993) Cervical somatic dysfunction Chicken pox (~1974) Chronic lower back pain Chronic thoracic back pain Cranial somatic dysfunction Depression (~2011) Eczema Excess ear wax External hemorrhoid (~1995) Follicle stimulating hormone excess Gestational diabetes Hand pain Headache Headache above the eye region Human papilloma virus (~1996) Menopause Menorrhagia (~1983) Migraines Ovarian cyst (~2013) Pain of foot Painful menstrual periods (~1983) Palpitations Pelvic somatic dysfunction Scoliosis Segmental and somatic dysfunction of sacral region Segmental and somatic dysfunction of thoracic region Sinus pain Vaginal atrophy Surgical History Anesthesia History of section (~1989) Family History Father Diabetes mellitus Coronary artery disease Brother Diabetes mellitus Grandfather No problems noted. Grandmother Dementia Grandfather Stroke Grandmother Cancer Social History Smoking Status: Former smoker Meds Home Medications and Allergies Home Medications Medication Instructions Recorded Confirmed Type DHEA 5 mg PO QAM 06/27/20 10/29/22 History BIEST 50:50 1mg/ml 0.25 mg topical QAM 90 days #90 03/06/22 10/02/22 Rx applic Progesterone E4M 125 mg PO .QHS #90 caplets 03/06/22 10/29/22 Rx citalopram 10 mg tablet 10 mg PO DAILY #90 tabs 03/06/22 10/02/22 Rx hydroxyzine pamoate 50 mg capsule 50 mg PO BEDTIME PRN insomnia or 03/06/22 10/29/22 Rx anxiety #90 caps naltrexone 50 mg tablet See Rx Instructions PO .COMPLEX 05/15/22 10/29/22 Rx pain #90 tabs meloxicam 15 mg tablet 15 mg PO DAILY 07/30/22 10/29/22 History clobetasol 0.05 % topical cream 1 applic topical QAM AND QPM #30 09/04/22 10/02/22 Rx grams estradiol 10 mcg vaginal tablet 10 mcg vaginal DAILY 2 weeks #44 09/04/22 10/29/22 Rx tabs clobetasol 0.05 % topical cream topical 10/29/22 History Allergies Allergy/AdvReac Type Severity Reaction Status Date / Time No Known Drug Allergies Allergy Verified 10/29/22 11:19 Exam Vital Signs (past 8 hours): - 10/29/22 11:32 Temperature 97.7 F Pulse Rate 77 Respiratory Rate 16 Blood Pressure 120/79 Pulse Oximetry 100 Oxygen Delivery Method Room Air Oxygen Delivery Method Room Air Narrative Exam Narrative: General adult woman alert oriented no acute distress Assessment & Plan Assessment & Plan narrative: The patient requires colorectal screening and colonoscopy is recommended. Technical details were discussed. Risks, benefits, alternatives explained. Risks including but not limited to myocardial infarction, aspiration, bleeding, pain, missed lesion, incomplete examination, need for further radiographic studies, colonic perforation, and need for major abdominal surgery were discussed. All questions were answered to their satisfaction, and they are in agreement with this plan.
--- NOTE | 2022-10-29 11:56 | P.OP.COLON_ITS ---
Operative Date/Time/Diagnoses Date of procedure: 10/29/22 Time of procedure: 11:56 Pre-op diagnosis: Colorectal screening Procedure & Clinicians Study performed: Colonoscopy Same procedure as scheduled: Yes Indications: Colorectal screening Surgeon: Calin Alvares Procedure Notes Procedure in detail: The history and physical was performed/updated and the patient is ASA class is 2. The procedure was discussed in detail with the patient. Potential risks complications including infection, bleeding, missed diagnosis, perforation, need for surgery, and were explained. Their questions were answered and informed consent was obtained. Patient was brought to the procedure room and placed standard monitoring equipment. The patient's vital signs were monitored continuously throughout the entire procedure. Prior to starting time-out was performed. The patient was placed in the left lateral recumbent position. Procedural sedation was administered by anesthesia. Examination began with a thorough inspection of the perianal area there was no evidence of fissures, fistulae, external hemorrhoids or cutaneous malignancy. The colonoscopy scope was then placed into the anal canal and was advanced to the cecum, which was identified by the ileocecal valv e, the appendiceal orifice and the confluence of the taenia. The scope was then slowly withdrawn examining colon thoroughly in all directions, irrigating it of any residual stool. Normal colon. No masses polyps or significant inflammation. Grade 1 internal hemorrhoids The patient tolerated the procedure well. They will be discharged once criteria are met. The prep was of good/excellent quality. The withdrawl time was 6 minutes. Specimen(s): none sent Complications: none Impression: Normal colonoscopy Post-procedure Recommendations: Colonoscopy in 10 years and High fiber diet Disposition: same day surgery
[2022-10-29 12:21] VITALS: BP 118/80; PULSE 72; RESP 13; TEMP 36.3; O2SAT 99
[2022-10-29 12:27] VITALS: BP 118/75; PULSE 73; RESP 21; O2SAT 100
[2022-10-29 12:32] VITALS: BP 121/60; PULSE 75; RESP 16; O2SAT 99
[2022-10-29 12:37] VITALS: BP 111/18; PULSE 79; RESP 22; TEMP 36.3; O2SAT 99
[2022-10-29 12:55] VITALS: BP 116/74; PULSE 77; RESP 18; TEMP 36.6; O2SAT 100
== END 2022-10-29 13:04 | disposition home or self-care (01) ==
PROVIDERS: Family Provider Nurse Practitioner; PCP Nurse Practitioner; Referring Provider Surgery; Visit Provider Surgery
PROC: 0DJD8ZZ Inspection of Lower Intestinal Tract, Via Natural or Artificial Opening Endoscopic (ICD-10-PCS; CPT 45378; principal; 2022-10-29 10:45)
DX: Z12.11 Encounter for screening for malignant neoplasm of colon (principal); K64.0 First degree hemorrhoids
CPT/HCPCS: 45378; J2704

== ENCOUNTER 2023-06-16 12:44 | Emergency (ER) | payer OTHER, SELFPAY ==
[2023-06-16 12:46] VITALS: BP 129/74; PULSE 81; RESP 16; TEMP 36.7; O2SAT 98; BMI 24.3
--- NOTE | 2023-06-16 15:18 | ED.DENTAL ---
HPI - Dental/Oral General Chief complaint: Dental/Oral Stated complaint: R/Facial swelling/ infection Time Seen by Provider: 06/16/23 15:18 Source: patient Mode of arrival: Ambulatory History of Present Illness HPI Narrative: Patient 53-year-old female who presents today with dental pain. She reports that she was seen by the dentist 5 days ago she was instructed to go to a specialist she is not yet been seen. She continued to have pain and swelling around her face. No fever. Dentist called in pen VK for her pharmacies are not open. She also reports that she just took 1500 mg of Tylenol. He is not helping she is been using ice and taking meloxicam as well Related Data Home Medications Medication Instructions Recorded Confirmed DHEA 5 mg PO QAM 06/27/20 10/29/22 clobetasol 0.05 % topical cream topical 10/29/22 Previous Rx's Medication Instructions Recorded naltrexone 50 mg tablet See Rx Instructions PO .COMPLEX 05/15/22 pain #90 tabs clobetasol 0.05 % topical cream 1 applic topical QAM AND QPM #30 09/04/22 grams estradiol 10 mcg vaginal tablet 10 mcg vaginal DAILY 2 weeks #44 09/04/22 tabs meloxicam 15 mg tablet 15 mg PO DAILY #90 tabs 01/16/23 BIEST 50:50 1mg/ml 0.25 mg topical QAM 90 days #90 03/18/23 applic Progesterone E4M 125 mg PO .QHS #90 caplets 03/18/23 citalopram 10 mg tablet 10 mg PO DAILY #90 tabs 03/31/23 hydroxyzine pamoate 50 mg capsule 50 mg PO BEDTIME PRN insomnia or 03/31/23 anxiety #90 caps atovaquone 250 mg-proguanil 100 mg See Rx Instructions PO .COMPLEX 04/09/23 tablet #30 tabs hydrocodone 5 mg-acetaminophen 325 1 tab PO Q6H PRN pain #10 tabs 06/16/23 mg tablet Allergies Allergy/AdvReac Type Severity Reaction Status Date / Time No Known Drug Allergies Allergy Verified 06/16/23 15:28 Patient History Medical History Abnormal Pap smear of cervix (~1996) Anxiety Asthma (~1975) Bilateral foot pain Bilateral hand pain Carpal tunnel syndrome (~2016) Cervical dysplasia (~1993) Cervical somatic dysfunction Chicken pox (~1974) Chronic lower back pain Chronic thoracic back pain Cranial somatic dysfunction Depression (~2011) Eczema Excess ear wax External hemorrhoid (~1995) Follicle stimulating hormone excess Gestational diabetes Hand pain Headache Headache above the eye region Human papilloma virus (~1996) Menopause Menorrhagia (~1983) Migraines Ovarian cyst (~2013) Pain of foot Painful menstrual periods (~1983) Palpitations Pelvic somatic dysfunction Scoliosis Segmental and somatic dysfunction of sacral region Segmental and somatic dysfunction of thoracic region Sinus pain Vaginal atrophy Surgical History Anesthesia History of section (~1989) Family History Father Diabetes mellitus Coronary artery disease Brother Diabetes mellitus Grandfather No problems noted. Grandmother Dementia Grandfather Stroke Grandmother Cancer Social History Smoking Status: Former smoker Smoking Status: Former smoker Exam Initial Vital Signs Initial Vital Signs: Vital Signs Temperature 98.1 F 06/16/23 12:46 Pulse Rate 81 06/16/23 12:46 Respiratory Rate 16 06/16/23 12:46 Blood Pressure 129/74 06/16/23 12:46 Pulse Oximetry 98 06/16/23 12:46 Oxygen Delivery Method Room Air 06/16/23 12:46 GENERAL: Alert well-appearing 53-year-old female MOUTH: Pain around tooth 1. To 3 no obvious dental abscess no trismus mild right facial swelling no erythema CARDIOVASCULAR: peripheral pulses in tact, cap refill <2 sec RESPIRATORY: No respiratory distress, speaks in full sentences without difficulty EXTREMITIES: Normal range of motion, no clubbing or edema. Neurovascularly intact NEUROLOGICAL: Cranial nerves II through XII grossly intact. Normal gait and speech. SKIN: Warm, dry, no petechiae, no rashes or lesions. Course Vital Signs Vital signs: Vital Signs - 8 hr 06/16/23 12:46 Temperature 98.1 F Pulse Rate 81 Respiratory Rate 16 Blood Pressure 129/74 Pulse Oximetry 98 Oxygen Delivery Method Room Air MDM - Dental/Oral MDM Narrative Medical decision making narrative: 53-year-old female who presents today with facial swelling and dental pain. Her dentist did call her in a prescription to pharmacy in [place]. He continues to have pain. We discussed appropriate Tylenol dosing and will give her [place]. However discussed that she should not take on for number of hours. He is given her 1st dose of pen VK here she has a prescription already called in. At this time no need for blood work very minimal swelling on her face, vitals are stable Discharge Plan Departure Patient Disposition: Home Clinical Impression: Pain, dental Instructions: DI for Dental Pain Activity Restrictions/Additional Instructions: *You have been diagnosed with dental pain *What to do: At this time please take your medications as prescribed. Please continue to follow-up with your dentist *Continue to take medications as directed [place] 1 tablet every 6 hours if needed for pain--must wait 6-8 hours before taking her 1st dose, do not combine this with Tylenol *Follow up with your primary care provider in 2-3 days or call [phone] *Return to ER if you should have increasing facial pain swelling fever redness or any new, worsening or concerning symptoms CONTROLLED SUBSTANCE DISCHARGE (Narcotoic/benzodiazepine/Flexeril/Phenergan) 1. You have been prescribed narcotic medications, it does have acetaminophen/Tylenol/paracetamol in it, DO NOT TAKE MORE THAN 4,00mg in 24 hours of Tylenol. TRAMADOL DOES NOT CONTAIN TYLENOL 2. Please understand that we cannot provide further refills of narcotics, benzodiazepines or controlled substances through the ED and her pain management will need to be through your provider. 3. While on these medications you cannot drive or operate heavy machinery. 4. You cannot sign legal documents or perform any duties such as this. 5. As long as you're taking opiate pain medications he should also be taking a stool softener such as Colace, Dulcolax, MiraLAX or prune juice, to help avoid constipation. Prescriptions: New hydrocodone-acetaminophen 5-325 mg tablet 1 tab PO Q6H PRN (Reason: pain) Qty: 10 0RF No Action DHEA capsule 5 mg PO QAM naltrexone 50 mg tablet See Rx Instructions PO .COMPLEX Qty: 90 3RF Rx Instructions: Please compound naltrexone 4.5mg capsule, Take one capsule by mouth at bedtime meloxicam 15 mg tablet 15 mg PO DAILY Qty: 90 3RF BIEST 50:50 1mg/ml cream 0.25 mg topical QAM 90 Days Qty: 90 12RF Rx Instructions: apply 1 click (0.25gm) topically in the morning to rotating sites (see body map) blue topclick Progesterone E4M 125 mg PO .QHS Qty: 90 3RF Rx Instructions: Take each night for menopause symptoms hydroxyzine pamoate 50 mg capsule 50 mg PO BEDTIME PRN (Reason: insomnia or anxiety) Qty: 90 1RF citalopram 10 mg tablet 10 mg PO DAILY Qty: 90 1RF atovaquone-proguanil 250-100 mg tablet See Rx Instructions PO .COMPLEX Qty: 30 0RF Rx Instructions: take 1 tab once daily x2 day before exposure, during time in area, and x7 days after leaving area PO estradiol 10 mcg tablet 10 mcg vaginal DAILY 14 Days Qty: 44 3RF Rx Instructions: Insert vaginally every night prior to bedtime x2 weeks, then 2-3 times per week thereafter clobetasol 0.05 % cream 1 applic topical QAM AND QPM Qty: 30 2RF Rx Instructions: Apply vaginally to affected area twice per day for burning clobetasol 0.05 % cream TOPICAL Patient Comments: APPLY VAGINALLY TO THE AFFECTED AREA TWICE DAILY FOR BURNING. USE EVERY MORNING AND EVERY EVENING Referrals: Saadia Bunn ARNP [Primary Care Provider] - Stand Alone Forms: Patient Portal/API
[2023-06-16] MEDS: PENICILLIN VK 250 MG TABLET 500 MG PO (15:32)
[2023-06-16] MEDS: HYDROCODONE/ACET 5/325 PREPACK 1 BOTTLE MISC (15:32)
[2023-06-16 15:46] VITALS: BP 126/78; PULSE 80; RESP 18; O2SAT 100
== END 2023-06-16 15:47 | disposition home or self-care (01) ==
PROVIDERS: Emergency Provider Emergency Medicine; Family Provider Nurse Practitioner; PCP Nurse Practitioner
DX: K08.89 Other specified disorders of teeth and supporting structures (principal)
CPT/HCPCS: 99283

== ENCOUNTER → 2023-09-19 07:52 | Outpatient (CLI) | payer OTHER, SELFPAY ==
--- NOTE | 2023-09-19 07:53 | DI.MRI.S_ITS ---
PROCEDURE: MR HIP RT WO CON INDICATIONS: worsening right hip pain TECHNIQUE: Noncontrast coronal T1 spin echo and STIR through the bony pelvis. Coronal and axial T2 fast spin echo with fat saturation, sagittal T1 spin echo, and oblique axial T2 fast spin echo with fat saturation through the hip. COMPARISON: [facility], MR, MR HIP RT WO CON, 06/13/2022, 16:21. FINDINGS: Image quality: Excellent. Bones and joints: Asymmetric moderate right hip joint osteoarthritic changes are seen with significant joint space narrowing, subchondral sclerosis and mild marrow edema. Marrow edema is seen extending to involve weight-bearing portion of right femoral head and neck extending to intertrochanteric region without discrete fracture line seen. No cortical disruption is noted. No avascular necrosis of the femoral heads. The visualized lower lumbar spine appears normally aligned. Tendons and ligaments: Low-grade partial-thickness tear involving distal right gluteus medius tendon at its insertion on greater trochanter is seen. Distal right gluteus minimus tendinosis is seen. The nearby proximal iliotibial band also appears intact. The iliopsoas tendon appears intact, without adjacent bursal fluid collections or evidence for impingement syndrome. The origin of the hamstring tendon is intact at the ischial tuberosity. Labrum and cartilage: There is diffuse loss of articulating cartilage over right femoral head. Signal abnormality, and contour irregularity involving superior anterior labrum extending from 12-2 o'clock position is seen suggestive of extensive superior anterior labral tear. The alpha angle of the femur is within normal limits at less than 55 degrees. Soft tissues: Visualized muscles demonstrate normal bulk and internal signal. Quadratus femoris muscle demonstrates no internal edema to suggest ischiofemoral impingement. The proximal sciatic neurovascular bundle appears normal adjacent to the hamstring tendons. No free pelvic fluid. Bladder wall thickness is normal. Genitourinary structures and bowel loops appear normal where visualized. IMPRESSION: 1. Asymmetric moderate right hip joint osteoarthritis. Marrow edema involving right acetabulum, weight-bearing portion of right femoral head and neck extending to intertrochanteric region without discrete fracture line. Finding may represent changes secondary to osteoarthritis versus transient osteoporosis of hip. No evidence of avascular necrosis of femoral head. 2. Low-grade partial-thickness tear involving distal right gluteus medius tendon. Distal right gluteus minimus tendinosis. No other muscle or tendon signal abnormalities. 3. Suggestion of extensive superior anterior right hip labral tear at 12 to 2 o'clock position. Dictated by: Chandler Cruz M.D. on 09/19/2023 at 9:10 Approved by: Chandler Cruz M.D. on 09/19/2023 at 11:23
== END ==
PROVIDERS: Family Provider Nurse Practitioner; PCP Nurse Practitioner; Referring Provider Nurse Practitioner; Visit Provider Nurse Practitioner
DX: S76.011A Strain of muscle, fascia and tendon of right hip, initial encounter (principal); M16.11 Unilateral primary osteoarthritis, right hip; M25.551 Pain in right hip
CPT/HCPCS: 73721

== ENCOUNTER → 2023-10-02 09:32 | Outpatient (CLI) | payer OTHER, SELFPAY ==
[2023-10-02 10:46] LABS: Vitamin D 25 Hydroxy (D3) 57.3 ng/mL (30.0-100.0)
== END ==
PROVIDERS: Family Provider Nurse Practitioner; PCP Nurse Practitioner; Referring Provider Orthopaedic Surgery; Visit Provider Orthopaedic Surgery
DX: M81.8 Other osteoporosis without current pathological fracture (principal)
CPT/HCPCS: 36415; 82306

== ENCOUNTER → 2023-10-19 10:21 | Outpatient (CLI) | payer OTHER, SELFPAY | PROVIDERS: Family Provider Nurse Practitioner; PCP Nurse Practitioner; Visit Provider Physician Assistant Medical | DX: R30.0 Dysuria (principal) | CPT/HCPCS: 87086 ==

== ENCOUNTER → 2023-10-31 07:15 | Outpatient (CLI) | payer OTHER, SELFPAY ==
[2023-10-31 08:14] LABS: Appearance Urine UA SL CLOUDY; Bilirubin Urine UA NEGATIVE (NEGATIVE); Color Urine UA YELLOW; Glucose Urine UA NEGATIVE (Negative); Ketones Urine UA NEGATIVE (NEGATIVE); Leukocyte Esterase Urine UA 2+ (NEGATIVE); Nitrite Urine UA NEGATIVE (Negative); Occult Blood Urine UA 3+ (Negative); Protein Urine UA TRACE (Negative); Urobilinogen Urine UA 0.2 E.U./dL (0.2)
[2023-10-31 08:18] LABS: pH Urine UA 6.5 (4.5-8.0)
[2023-10-31 08:26] LABS: Bacteria Urine Moderate (10-30); Culture Indicated Urine Specimen Cultured; RBC Urine 30-100/HPF (0-5/HPF); Squamous Epithelial Cell Urine 0-1 /HPF (0-5/HPF); Urine Volume 10mL (spun); WBC Urine 5-10/HPF (0-5/HPF)
== END ==
PROVIDERS: Family Provider Nurse Practitioner; PCP Nurse Practitioner; Visit Provider Physician Assistant Medical
DX: R30.0 Dysuria (principal)
CPT/HCPCS: 81001; 87077; 87086; 87186

== ENCOUNTER → 2024-01-16 17:51 | Outpatient (CLI) | payer OTHER, SELFPAY | PROVIDERS: Family Provider Nurse Practitioner; PCP Nurse Practitioner; Visit Provider Family Medicine | DX: R30.0 Dysuria (principal) | CPT/HCPCS: 87077; 87086; 87186 ==

== ENCOUNTER → 2024-01-20 15:07 | Outpatient (CLI) | payer OTHER, SELFPAY ==
--- NOTE | 2024-01-20 15:51 | EKG_ITS ---
[facility] [address] [place] [address] Test Date: 2024-01-20 Pat Name: Margaret Akhtar Department: [facility] Room: Gender: Female Pediatric Surgeon: ZEUS : 1970 Requested By: Order Number: [id number] Reading MD: Claudio Jennings Measurements Intervals Morris Rate: 68 P: 48 DE: 174 QRS: 11 QRSD: 82 T: 32 QT: 400 QTc: 425 Interpretive Statements Normal sinus rhythm Electronically Signed On 01-21-2024 8:51:06 PDT by Claudio Jennings
[2024-01-20 16:24] LABS: Appearance Urine UA CLEAR; Bilirubin Urine UA NEGATIVE (NEGATIVE); Color Urine UA YELLOW; Glucose Urine UA NEGATIVE (Negative); Ketones Urine UA NEGATIVE (NEGATIVE); Leukocyte Esterase Urine UA NEGATIVE (NEGATIVE); Nitrite Urine UA NEGATIVE (Negative); Occult Blood Urine UA NEGATIVE (Negative); Protein Urine UA NEGATIVE (Negative); Specific Gravity Urine UA <=1.005 (1.000-1.035); Urobilinogen Urine UA 0.2 E.U./dL (0.2)
[2024-01-20 16:31] LABS: Bacteria Urine Occasional (0-1); Culture Indicated Urine Cult Not Indicated; RBC Urine 0-1/HPF (0-5/HPF); Squamous Epithelial Cell Urine 0-1 /HPF (0-5/HPF); Urine Volume 10mL (spun); WBC Urine 0-1/HPF (0-5/HPF)
[2024-01-20 17:22] LABS: Add Manual Diff / Slide Review NO; Basophils Absolute Auto 0 /uL (0-100); Basophils Percent Auto 0.3 % (0-2); Eosinophils Absolute Auto 400 /uL (0-450); Eosinophils Percent Auto 6.7 % (2-4); Hematocrit 37.6 % (36-46); Hemoglobin 12.9 g/dL (12.0-16.0); Lymphocytes Absolute Auto 1900 /uL (1100-4500); Lymphocytes Percent Auto 35.9 % (25-40); Mean Corpuscular HGB Conc 34.2 % (30-36); Mean Corpuscular Hemoglobin 33.1 PG (26-34); Mean Corpuscular Volume 96.9 fL (80-100); Monocytes Absolute Auto 400 /uL (0-900); Monocytes Percent Auto 7.8 % (3-14); Neutrophils Absolute Auto 2600 /uL (1500-7000); Neutrophils Percent Auto 49.3 % (50-75); Platelet Count 236 X10^3/uL (150-400); Red Blood Cell Count 3.88 X10^6/uL (4.0-5.2); Red Cell Distribution Width 12.9 % (11.6-14.8); White Blood Cell Count 5.2 X10^3/uL (4.5-11.0)
[2024-01-20 17:42] LABS: Hemoglobin A1C% w Est Avg Glu 5.5 % (4.0-6.0)
[2024-01-20 17:47] LABS: BUN Creatinine Ratio 18.8 (6-22); Blood Urea Nitrogen 19 mg/dL (7-17); Carbon Dioxide 24 mmol/L (22-32); Chloride 103 mmol/L (98-107); Estimated Glomerular Filt Rate > 60 mL/min (>60); Glucose 86 mg/dL (70-100); HEMOLYSIS < 15 (0-50); Potassium 4.5 mmol/L (3.4-5.1); Sodium 136 mmol/L (137-145)
== END ==
PROVIDERS: Family Provider Nurse Practitioner; PCP Nurse Practitioner; Referring Provider Orthopaedic Surgery; Visit Provider Orthopaedic Surgery
DX: Z01.818 Encounter for other preprocedural examination (principal); Z01.812 Encounter for preprocedural laboratory examination; R73.9 Hyperglycemia, unspecified; N39.0 Urinary tract infection, site not specified
CPT/HCPCS: 36415; 80048; 81001; 83036; 85025; 93005

== ENCOUNTER → 2024-01-30 13:21 | Outpatient (CLI) | payer OTHER, SELFPAY ==
[2024-01-30 13:50] LABS: Appearance Urine UA CLEAR; Bilirubin Urine UA NEGATIVE (NEGATIVE); Color Urine UA YELLOW; Glucose Urine UA NEGATIVE (Negative); Ketones Urine UA NEGATIVE (NEGATIVE); Leukocyte Esterase Urine UA NEGATIVE (NEGATIVE); Nitrite Urine UA NEGATIVE (Negative); Occult Blood Urine UA NEGATIVE (Negative); Protein Urine UA NEGATIVE (Negative); pH Urine UA 6.5 (4.5-8.0)
== END ==
PROVIDERS: Family Provider Nurse Practitioner; PCP Nurse Practitioner; Referring Provider Nurse Practitioner; Visit Provider Nurse Practitioner
DX: N30.00 Acute cystitis without hematuria (principal)
CPT/HCPCS: 81003

== ENCOUNTER → 2024-02-12 16:55 | Outpatient (CLI) | payer OTHER, SELFPAY ==
[2024-02-12 17:37] LABS: Appearance Urine UA CLEAR; Bilirubin Urine UA NEGATIVE (NEGATIVE); Color Urine UA YELLOW; Glucose Urine UA NEGATIVE (Negative); Ketones Urine UA NEGATIVE (NEGATIVE); Leukocyte Esterase Urine UA TRACE (NEGATIVE); Nitrite Urine UA NEGATIVE (Negative); Occult Blood Urine UA NEGATIVE (Negative); Protein Urine UA NEGATIVE (Negative); Urobilinogen Urine UA 0.2 E.U./dL (0.2)
[2024-02-12 17:46] LABS: Amorphous Sediment Urine 1+; Bacteria Urine Few (2-10); Culture Indicated Urine Specimen Cultured; RBC Urine None Seen (0-5/HPF); Squamous Epithelial Cell Urine 1-5 /HPF (0-5/HPF); Urine Volume 10mL (spun); WBC Urine 5-10/HPF (0-5/HPF)
== END ==
LOC: LAB 16:56
PROVIDERS: Family Provider Nurse Practitioner; PCP Nurse Practitioner; Referring Provider Nurse Practitioner; Visit Provider Nurse Practitioner
DX: R30.0 Dysuria (principal); N39.0 Urinary tract infection, site not specified
CPT/HCPCS: 81001; 87086

== ENCOUNTER → 2024-08-17 15:00 | Outpatient (CLI) | payer OTHER, SELFPAY ==
--- NOTE | 2024-08-17 15:01 | DI.MG.S_ITS ---
BILATERAL DIGITAL SCREENING MAMMOGRAM 3D/2D WITH CAD: 08/17/2024 CLINICAL: Routine screening. Comparison is made to exams dated: 10/18/2021 mammogram, 12/28/2018 mammogram, and 01/02/2017 mammogram - [facility]. The breasts are heterogeneously dense, which may obscure small masses (category c / 51-75% glandular tissue). Current study was also evaluated with a Computer Aided Detection (CAD) system. No significant masses, calcifications, or other findings are seen in either breast. There has been no significant interval change. IMPRESSION: NEGATIVE There is no mammographic evidence of malignancy. A 1 year screening mammogram is recommended. Based on the Tyrer Cuzick model (a risk assessment model) the patient's lifetime risk is 8.2% and her 10 year risk is 2.3%. According to the ACR, ACS, and NCCN guidelines, an annual breast MRI exam along with mammogram is recommended if the patient's lifetime risk is 20% or greater. This exam was interpreted at Station ID: [id number]. NOTE: For mammograms, a report in lay terms will be sent to the patient. Approximately 15% of breast malignancies will not be visualized mammographically. In the management of a palpable breast mass, a negative mammogram must not discourage biopsy of a clinically suspicious lesion. Electronically Signed By: Bob santana/diann:08/18/2024 06:38:31 letter sent: Normal Exam ACR BI-RADS Category 1: Negative
== END ==
PROVIDERS: Family Provider Nurse Practitioner; PCP Registered Nurse Diabetes Educator; Referring Provider Registered Nurse Diabetes Educator; Visit Provider Registered Nurse Diabetes Educator
DX: Z12.31 Encounter for screening mammogram for malignant neoplasm of breast (principal); R92.333 Mammographic heterogeneous density, bilateral breasts
CPT/HCPCS: 77063; 77067

== ENCOUNTER → 2024-09-20 12:11 | Outpatient (CLI) | payer OTHER, SELFPAY ==
--- NOTE | 2024-09-20 12:14 | DI.RAD.S_ITS ---
PROCEDURE: XR SHOULDER LT MIN 2V INDICATIONS: Left shoulder pain TECHNIQUE: 3 views of the shoulder were acquired. COMPARISON: None. FINDINGS: Bones: No fractures or dislocations. The humeral head is mildly high-riding. There is mild to moderate glenohumeral joint space narrowing with minimal marginal osteophytosis. Moderate to severe hypertrophic acromioclavicular arthropathy and joint space narrowing noted. No suspicious bony lesions. Visualized ribs appear intact. Soft tissues: No suspicious soft tissue calcifications. IMPRESSION: Acromioclavicular and glenohumeral degenerative change without evidence of acute osseous abnormality. Dictated by: Alberto Krause M.D. on 09/21/2024 at 2:45 Approved by: Alberto Krause M.D. on 09/21/2024 at 2:46
== END ==
PROVIDERS: Family Provider Nurse Practitioner; PCP Registered Nurse Diabetes Educator; Referring Provider Registered Nurse Diabetes Educator; Visit Provider Registered Nurse Diabetes Educator
DX: M25.512 Pain in left shoulder (principal)
CPT/HCPCS: 73030

== ENCOUNTER 2025-02-08 09:45 | Outpatient (RCR) | payer OTHER, SELFPAY ==
--- NOTE | 2024-12-27 14:01 | PT.OIE ---
Addendum entered and electronically signed by Keith Gómez, PT 12/27/24 14:04: PT direct supervision and direction to student PT Abdelrahman Oneill throughout session Original Note: Current Diagnoses Pain in left shoulder (12/27/24) Past Medical History (Last Reviewed 08/22/24 @ 13:45 by JONH Jefferson) Abnormal Pap smear of cervix (~1996) Anxiety Asthma (~1975) Bilateral foot pain Bilateral hand pain Carpal tunnel syndrome (~2016) Cervical dysplasia (~1993) Cervical somatic dysfunction Chicken pox (~1974) Chronic lower back pain Chronic thoracic back pain Cranial somatic dysfunction Depression (~2011) Dyslipidemia Eczema Excess ear wax External hemorrhoid (~1995) Follicle stimulating hormone excess Frequent UTI Gestational diabetes Hand pain Headache Headache above the eye region Human papilloma virus (~1996) Labral tear of hip joint Menopause Menorrhagia (~1983) Migraines Osteoarthritis of right hip Ovarian cyst (~2013) Pain of foot Painful menstrual periods (~1983) Palpitations Pelvic somatic dysfunction Right hip pain Scoliosis Segmental and somatic dysfunction of sacral region Segmental and somatic dysfunction of thoracic region Sinus pain Vaginal atrophy Past Surgical History (Last Reviewed 08/22/24 @ 13:45 by JONH Jefferson) Anesthesia History of section (~1989) Visit Care Team Role Provider Type JONH Farah Family Provider Non-Staff Specialty: Family Practice Address: [address] [place] [address], [id number] Email: JONH Jefferson Attending Provider Advanced Network Systems Engineer Primary Care Provider Referring Provider Specialty: Medical Address: [address] [place] [address], [id number] Email: [email or web address] Physical Therapy Initial Evaluation PT-OP-A Visit Information Start: 12/27/24 10:34 Freq: Status: Active Protocol: Document 12/27/24 10:47 LFG (Rec: 12/27/24 10:44 LFG [id number]) Out-Patient Physical Therapy Visit Information Visit Information Visit Type Initial Evaluation Visit Start Time 10:47 Visit Stop Time 11:25 Visit Number 1 Evaluation Information Evaluation Date 12/27/24 PT-OP-B Current Condition Start: 12/27/24 10:34 Freq: Status: Active Protocol: Document 12/27/24 10:47 LFG (Rec: 12/27/24 10:44 [facility] [id number]) Current Condition History of Current Condition Onset Date June 2024 Current Complaints L shoulder pain History of Current Patient is a 54 year old female with complaints of L Condition shoulder pain that started in Jul 17 while on a trip in [facility]. She states that some possible causes could be that while on the trip she snorkeled while holding on to a trapez while being dragged by a boat. Didn't start to feel sore/achey till long after. Other incident is where she woke up on night to reach back behind her while in supine that caused a lot of pain in her L UE. 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 Pain starts in the shoulder and sometimes radiates down to the elbow but not to the joint. Pain is described as achey, and also has unrelated neck pain. Out of fear of pain avoidance, she does a lot of guarding and limits her L UE ROM while doing everyday activities, including getting dressed and carrying groceries. Recently purchased an ice pack that she says relieves her pain for the rest of the day after using. X rays reveal no fractures. Denies any previous L UE injury, does mention some complaints of previous R UE pain. Prior Treatments and Hip replacement 24' Tests PT-OP-C Subjective Start: 12/27/24 10:34 Freq: Status: Active Protocol: Document 12/27/24 10:47 LFG (Rec: 12/27/24 10:44 [facility] [id number]) OP-PT Subjective Patient Comments Patient Comments Holds L UE close to body and self limits ROM to avoid pain Patient Questionnaires Quick Dash- Upper Extremity Quick Dash UE Score 53% Quick Dash UE 40 to 59% Impaired (Score 40-59) Impairment PT-OP-E Functional Tests Start: 12/27/24 10:34 Freq: Status: Active Protocol: Document 12/27/24 10:47 LFG (Rec: 12/27/24 13:01 [facility] [id number]) Functional Tests Apley's Scratch Test Action 1- Left lateral opp shoulder Action 1- Right posterior opp shoulder Action 2- Left C7 Action 2- Right T2 Action 3- Left T6 Action 3- Right T6 PT-OP-F Manual Assessment Start: 12/27/24 10:34 Freq: Status: Active Protocol: Document 12/27/24 10:47 LFG (Rec: 12/27/24 12:00 LFG [id number]) Manual Assessments Soft Tissue Assessment Soft Tissue Mobility Left supraspinatus atrophy as compared to the right Assessment PT-OP-K Range of Motion Start: 12/27/24 10:34 Freq: Status: Active Protocol: Document 12/27/24 10:47 LFG (Rec: 12/27/24 12:02 LFG [id number]) Shoulder Goniometric Range of Motion Shoulder Right Active Testing Position Sitting Flexion 135 Abduction 110 Left Active Testing Position Sitting Flexion 112 Abduction 81 Comments pain w/ flexion and abduction PT-OP-L Special Tests Start: 12/27/24 10:34 Freq: Status: Active Protocol: Document 12/27/24 10:47 LFG (Rec: 12/27/24 12:06 LFG [id number]) Special Tests Shoulder Special Tests Painful arc Test Results Positive L Passive ER Rotator Cuff Test Results negative Lift-Off Rotator Cuff Test Results negative Nunez [place] Impingement Test Results negative Grind Labrum Test Results negative Empty Can Test Results positive L Drop Arm Rotator Cuff Test Results negative Belly Press Test Results Negative Apprehension Test Test Results Positive L PT-OP-M Strength Start: 12/27/24 10:34 Freq: Status: Active Protocol: Document 12/27/24 10:47 LFG (Rec: 12/27/24 12:00 LFG [id number]) Shoulder Strength Shoulder Manual Muscle Testing Right Flexion 5 Normal Abduction (C5) 5 Normal External Rotation 4+ Good+ Left Flexion 3+ Fair+ Abduction (C5) 3+ Fair+ External Rotation 3+ Fair+ Comments pain w/ flexion/abduction Elbow/Forearm Strength Elbow and Forearm Manual Muscle Testing Right Flexion (C6) 5 Normal Extension (C7) 5 Normal Left Flexion (C6) 4+ Good+ Extension (C7) 4- Good- Comments pain w/ extension PT-OP-Q Treatments Start: 12/27/24 10:34 Freq: Status: Active Protocol: Document 12/27/24 10:47 LFG (Rec: 12/27/24 12:00 LFG [id number]) Therapeutic Exercises Sidelying Exercises ER Sidelying Exercise ER Name Side left Reps/Minutes x12 Comments too easy Sitting Exercises ER/IR Sitting Exercise ER/IR Name Side left Resistance L1 Equipment Used tb Reps/Minutes x10 Shoulder circles Sitting Exercise rolling shoulders back - retracting scapulas Name Side bilateral Reps/Minutes x12 Comments reports of clicking bilaterally in the shoulders Self-Care/Home Management Treatment Education Patient Education Home Exercise Program Other Education Given L1 TB for ER/IR. Also given shoulder circles for as part of HEP. Recommended to try x2/daily. PT-OP-T Assessment and Plan Start: 12/27/24 10:34 Freq: Status: Active Protocol: Document 12/27/24 10:47 LFG (Rec: 12/27/24 12:00 [facility] [id number]) Physical Therapy Assessment Evaluation Complexity Number of Personal 1-2 Factors/ Comorbidities Number of Body 4 or More Systems Impaired Clinical Evolving Presentation at Evaluation Impairments Impairments Activity Tolerance,Functional Activities,Functional Mobility,Pain,Posture,ROM,Soft Tissue Mobility,Strength ,Tone Goals Three Impairment Pt does not have a cohesive HEP Short Term Goal (STG Pt will adhere and follow a cohesive HEP independently ) STG Duration 01/31/25 Two Impairment L UE weakness Jail Goal (LTG) To improve flexion/abduction/ER from 3+ -> 4 w/o pain to be able to carry groceries and caregive for her properly LTG Duration 03/07/25 One Impairment L UE flexion/abduction ROM limited Jail Goal (LTG) To improve flexion ROM from 110 -> 130, and improve abduction ROM from 81 -> 100 w/ no pain so that pt can get dressed more efficiently w/o complications LTG Duration 03/07/25 Assessment Summary Assessment Patient presents to PT with signs and symptoms consistent with likely a L rotator cuff strain. X rays revealed no fractures, will possibly get an MRI. Apleys and empty can/apprehension/painful arc tests demonstrate L UE impairments as compared to the R UE. Manual assessment and palpation reveal atrophy in the L supraspinatus as compared to the R. Location of patients complaints are consistent with the muscle attachment of supraspinatus, would likely recommend MRI in the future if pt does not progress as expected. Pt demonstrates significant L UE active ROM limitations in flexion/abduction w/ pain, and weakness in flexion/ abduction/ER also w/ pain. Patient is limited in ADL's and in caregiving for her , and states that she will attend to PT when her has appointments here which is about 1x/week but is willing to attend more if need be. ER/IR and scapula retraction exercises were given today as part of her HEP. Patient will likely benefit from skilled therapeutic intervention focusing on UE functional strengthening, ROM and manual therapy as needed to return to PLOF. Physical Therapy Plan Frequency and Duration Frequency of 1x/Week Treatment Plan of Care Start 12/27/24 Date Plan of Care End 03/07/25 Date Therapeutic Interventions Therapeutic Home Exercise Program,Joint Mobilizations,Manual Interventions Therapy,Patient/Caregiver Education,Self-Care/Home Management,Soft Tissue Mobilization,Taping,Therapeutic Activities,Therapeutic Exercises Modalities Biofeedback,Cold Pack/Ice Massage,Electric Stimulation, Hot Packs,Infrared Therapy,Iontophoresis,Paraffin Bath, Traction- Mechanical,Ultrasound,Vasopneumatic Devices Next Visit Focus/Plan Next Note Type Treatment Note Next Visit Plan Review HEP Begin UE functional strengthening, ROM, STM
--- NOTE | 2024-12-27 14:02 | PT.OPPOC ---
Addendum entered and electronically signed by Keith Gómez, PT 12/27/24 14:05: PT direct supervision and direction to student PT Abdelrahman Oneill throughout session Original Note: Physical, Occupational & Speech Therapy At [facility] Current Diagnoses Pain in left shoulder (12/27/24) Visit Care Team Role Provider Type JONH Farah Family Provider Non-Staff Specialty: Family Practice Address: [address] [place] [address], [id number] Email: JONH Jefferson Attending Provider Advanced Corporate Executive Chef Primary Care Provider Referring Provider Specialty: Medical Address: [address] [place] [address], [id number] Email: [email or web address] Plan Of Care PT-OP-B Current Condition Start: 12/27/24 10:34 Freq: Status: Active Protocol: Document 12/27/24 10:47 [facility] (Rec: 12/27/24 10:44 [facility] [id number]) Current Condition History of Current Condition Onset Date June 2024 Current Complaints L shoulder pain History of Current Patient is a 54 year old female with complaints of L Condition shoulder pain that started in Jul 17 while on a trip in [facility]. She states that some possible causes could be that while on the trip she snorkeled while holding on to a trapez while being dragged by a boat. Didn't start to feel sore/achey till long after. Other incident is where she woke up on night to reach back behind her while in supine that caused a lot of pain in her L UE. 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 Pain starts in the shoulder and sometimes radiates down to the elbow but not to the joint. Pain is described as achey, and also has unrelated neck pain. Out of fear of pain avoidance, she does a lot of guarding and limits her L UE ROM while doing everyday activities, including getting dressed and carrying groceries. Recently purchased an ice pack that she says relieves her pain for the rest of the day after using. X rays reveal no fractures. Denies any previous L UE injury, does mention some complaints of previous R UE pain. Prior Treatments and Hip replacement 24' Tests PT-OP-T Assessment and Plan Start: 12/27/24 10:34 Freq: Status: Active Protocol: Document 12/27/24 10:47 [facility] (Rec: 12/27/24 12:00 [facility] [id number]) Physical Therapy Assessment Evaluation Complexity Number of Personal 1-2 Factors/ Comorbidities Number of Body 4 or More Systems Impaired Clinical Evolving Presentation at Evaluation Impairments Impairments Activity Tolerance,Functional Activities,Functional Mobility,Pain,Posture,ROM,Soft Tissue Mobility,Strength ,Tone Goals Three Impairment Pt does not have a cohesive HEP Short Term Goal (STG Pt will adhere and follow a cohesive HEP independently ) STG Duration 01/31/25 Two Impairment L UE weakness Long-Term Goal (LTG) To improve flexion/abduction/ER from 3+ -> 4 w/o pain to be able to carry groceries and caregive for her properly LTG Duration 03/07/25 One Impairment L UE flexion/abduction ROM limited Irrigation System Operator Goal (LTG) To improve flexion ROM from 110 -> 130, and improve abduction ROM from 81 -> 100 w/ no pain so that pt can get dressed more efficiently w/o complications LTG Duration 03/07/25 Assessment Summary Assessment Patient presents to PT with signs and symptoms consistent with likely a L rotator cuff strain. X rays revealed no fractures, will possibly get an MRI. Apleys and empty can/apprehension/painful arc tests demonstrate L UE impairments as compared to the R UE. Manual assessment and palpation reveal atrophy in the L supraspinatus as compared to the R. Location of patients complaints are consistent with the muscle attachment of supraspinatus, would likely recommend MRI in the future if pt does not progress as expected. Pt demonstrates significant L UE active ROM limitations in flexion/abduction w/ pain, and weakness in flexion/ abduction/ER also w/ pain. Patient is limited in ADL's and in caregiving for her , and states that she will attend to PT when her has appointments here which is about 1x/week but is willing to attend more if need be. ER/IR and scapula retraction exercises were given today as part of her HEP. Patient will likely benefit from skilled therapeutic intervention focusing on UE functional strengthening, ROM and manual therapy as needed to return to PLOF. Physical Therapy Plan Frequency and Duration Frequency of 1x/Week Treatment Plan of Care Start 12/27/24 Date Plan of Care End 03/07/25 Date Therapeutic Interventions Therapeutic Home Exercise Program,Joint Mobilizations,Manual Interventions Therapy,Patient/Caregiver Education,Self-Care/Home Management,Soft Tissue Mobilization,Taping,Therapeutic Activities,Therapeutic Exercises Modalities Biofeedback,Cold Pack/Ice Massage,Electric Stimulation, Hot Packs,Infrared Therapy,Iontophoresis,Paraffin Bath, Traction- Mechanical,Ultrasound,Vasopneumatic Devices Next Visit Focus/Plan Next Note Type Treatment Note Next Visit Plan Review HEP Begin UE functional strengthening, ROM, STM Plan of Care Dates Plan of Care Start Date 12/27/24 Plan of Care End Date 03/07/25 Electronically Signed by: Abdelrahman Bosch, PT 12/27/24 8214 If you are in agreement with this Plan of Care, please return a signed and dated copy. I have reviewed this Plan of Care and certify that the skilled therapy services above are required to meet the patient?s needs. Physician Signature Date Printed Name and Credentials Clinical Instructor Signature Printed Name and Credentials
--- NOTE | 2025-01-07 16:51 | PT.OTN ---
Current Diagnoses Pain in left shoulder (01/07/25) Physical Therapy Treatment Note PT-OP-A Visit Information Start: 12/27/24 10:34 Freq: Status: Active Protocol: Document 01/07/25 13:09 [facility] (Rec: 01/07/25 14:31 [facility] Laptop) Out-Patient Physical Therapy Visit Information Visit Information Visit Type Treatment Note Visit Start Time 13:06 Visit Stop Time 13:50 Visit Number 2 Number of TRANSVERSE ABDOMINAL MUSCLE NURSE Visits 1 PT-OP-B Current Condition Start: 12/27/24 10:34 Freq: Status: Active Protocol: Document 12/27/24 10:47 [facility] (Rec: 12/27/24 10:44 [facility] [id number]) Current Condition History of Current Condition Onset Date June 2024 Current Complaints L shoulder pain History of Current Patient is a 54 year old female with complaints of L Condition shoulder pain that started in Jul 17 while on a trip in [facility]. She states that some possible causes could be that while on the trip she snorkeled while holding on to a trapez while being dragged by a boat. Didn't start to feel sore/achey till long after. Other incident is where she woke up on night to reach back behind her while in supine that caused a lot of pain in her L UE. 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 Pain starts in the shoulder and sometimes radiates down to the elbow but not to the joint. Pain is described as achey, and also has unrelated neck pain. Out of fear of pain avoidance, she does a lot of guarding and limits her L UE ROM while doing everyday activities, including getting dressed and carrying groceries. Recently purchased an ice pack that she says relieves her pain for the rest of the day after using. X rays reveal no fractures. Denies any previous L UE injury, does mention some complaints of previous R UE pain. Prior Treatments and Hip replacement 24' Tests PT-OP-C Subjective Start: 12/27/24 10:34 Freq: Status: Active Protocol: Document 01/07/25 13:09 [facility] (Rec: 01/07/25 14:31 [facility] Laptop) OP-PT Subjective Patient Comments Patient Comments Margaret reports she forgot to tell PT that she'd previously injured her L shoulder a couple of years ago , possibly performing TRX workout. Most recent injury was after snorkeling and then next morning reaching and felt tear. Carrying the groceries or holding anything in L hand is especially challenging. Last night when she leaned on her L arm on armrest she had tingling which got better with ice pack. She has a massage on Friday. Isn't doing ex's twice daily but is using L arm instead of R arm as able like with vaccuuming. No pain at rest, only with activity. PT-OP-E Functional Tests Start: 12/27/24 10:34 Freq: Status: Active Protocol: Document 12/27/24 10:47 [facility] (Rec: 12/27/24 13:01 [facility] [id number]) Functional Tests Apley's Scratch Test Action 1- Left lateral opp shoulder Action 1- Right posterior opp shoulder Action 2- Left C7 Action 2- Right T2 Action 3- Left T6 Action 3- Right T6 PT-OP-F Manual Assessment Start: 12/27/24 10:34 Freq: Status: Active Protocol: Document 12/27/24 10:47 [facility] (Rec: 12/27/24 12:00 [facility] [id number]) Manual Assessments Soft Tissue Assessment Soft Tissue Mobility Left supraspinatus atrophy as compared to the right Assessment PT-OP-K Range of Motion Start: 12/27/24 10:34 Freq: Status: Active Protocol: Document 12/27/24 10:47 [facility] (Rec: 12/27/24 12:02 [facility] [id number]) Shoulder Goniometric Range of Motion Shoulder Right Active Testing Position Sitting Flexion 135 Abduction 110 Left Active Testing Position Sitting Flexion 112 Abduction 81 Comments pain w/ flexion and abduction PT-OP-L Special Tests Start: 12/27/24 10:34 Freq: Status: Active Protocol: Document 12/27/24 10:47 [facility] (Rec: 12/27/24 12:06 [facility] [id number]) Special Tests Shoulder Special Tests Painful arc Test Results Positive L Passive ER Rotator Cuff Test Results negative Lift-Off Rotator Cuff Test Results negative Nunez Delonte Impingement Test Results negative Grind Labrum Test Results negative Empty Can Test Results positive L Drop Arm Rotator Cuff Test Results negative Belly Press Test Results Negative Apprehension Test Test Results Positive L PT-OP-M Strength Start: 12/27/24 10:34 Freq: Status: Active Protocol: Document 12/27/24 10:47 [facility] (Rec: 12/27/24 12:00 [facility] [id number]) Shoulder Strength Shoulder Manual Muscle Testing Right Flexion 5 Normal Abduction (C5) 5 Normal External Rotation 4+ Good+ Left Flexion 3+ Fair+ Abduction (C5) 3+ Fair+ External Rotation 3+ Fair+ Comments pain w/ flexion/abduction Elbow/Forearm Strength Elbow and Forearm Manual Muscle Testing Right Flexion (C6) 5 Normal Extension (C7) 5 Normal Left Flexion (C6) 4+ Good+ Extension (C7) 4- Good- Comments pain w/ extension PT-OP-Q Treatments Start: 12/27/24 10:34 Freq: Status: Active Protocol: Document 01/07/25 13:09 [facility] (Rec: 01/07/25 14:31 [facility] Laptop) Therapeutic Exercises Sitting Exercises Diaphragmatic breathing Sitting Exercise deep breaths arms abducted>self-hug>gentle rocking 1. B Name UE 2. R UE only Resistance for muscle relaxation via Parasympathetic NS activation Equipment Used LUE supported on table Reps/Minutes 5' Comments w/ Thank you, Body mantra ER/IR Sitting Exercise ER/IR Name Side left Resistance L1 Tb Reps/Minutes x15 Comments cues for chin tuck, scapular setting, breath; painfree Shoulder circles Sitting Exercise rolling shoulders back - retracting scapulas Name Side bilateral Reps/Minutes x12 Comments cues for breath and full relaxation Therapeutic Activity Therapeutic Activity ADLs Comments -Pt demos vacuuming and is cued for cervical alignment, scapular setting, and increasing steps instead of bending and reaching. ADLs Do's/Don'ts HO given. Manual Therapy Treatment Consent Patient gave verbal Yes consent for manual treatment Soft Tissue Mobilization L shoulder Body Location L UT, LS, scalenes, Biceps long head, supraspinatus, deltoid, rhomboids Mobilization Type Cross-Friction,Rolling,Sustained Pressure,Other Intensity/Depth Moderate Body Position Hooklying Comments LEs on bolsters. Manual pin and stretch to L UT and LS. Self-Care/Home Management Treatment Education Patient Education Body Mechanics,Home Exercise Program,Posture Other Education -Edu to pt for maintaining cervical alignment and seated posture with using phone/tablet, and how to incorporate scapular setting and cervical alignment into HEP. -Edu to pt with visual aids for TrA sonali anatomy, interrelationship with diaphragm and pelvic floor, and use of breathwork and not breathholding with HEP and functional activities. -Pt demos supine to long sitting. Edu to pt for log roll method for in/out bed. PT-OP-T Assessment and Plan Start: 12/27/24 10:34 Freq: Status: Active Protocol: Document 01/07/25 13:09 [facility] (Rec: 01/07/25 16:48 [facility] Laptop) Physical Therapy Assessment Impairments Impairments Activity Tolerance,Functional Activities,Functional Mobility,Pain,Posture,ROM,Soft Tissue Mobility,Strength ,Tone Goals Three Impairment Pt does not have a cohesive HEP Short Term Goal (STG Pt will adhere and follow a cohesive HEP independently ) STG Duration 01/31/25 Two Impairment L UE weakness Shelter Goal (LTG) To improve flexion/abduction/ER from 3+ -> 4 w/o pain to be able to carry groceries and caregive for her properly LTG Duration 03/07/25 One Impairment L UE flexion/abduction ROM limited Shelter Goal (LTG) To improve flexion ROM from 110 -> 130, and improve abduction ROM from 81 -> 100 w/ no pain so that pt can get dressed more efficiently w/o complications LTG Duration 03/07/25 Assessment Summary Assessment Treatment focus on manual therapy and incorporating postural education into HEP and ADLs - ADLs Do's/Dont's HO given w/ cues for cervical spinal alignment and scapular setting. Pt demos improved self-awareness of posture and breathwork with self-corrections throughout session. Palpable tension to L biceps, Upper Trapezius and Levator scapula improves with soft tissue mobilization - positive feedback response. Physical Therapy Plan Frequency and Duration Frequency of 1x/Week Treatment Plan of Care Start 12/27/24 Date Plan of Care End 03/07/25 Date Therapeutic Interventions Therapeutic Home Exercise Program,Joint Mobilizations,Manual Interventions Therapy,Patient/Caregiver Education,Self-Care/Home Management,Soft Tissue Mobilization,Taping,Therapeutic Activities,Therapeutic Exercises Modalities Biofeedback,Cold Pack/Ice Massage,Electric Stimulation, Hot Packs,Infrared Therapy,Iontophoresis,Paraffin Bath, Traction- Mechanical,Ultrasound,Vasopneumatic Devices Next Visit Focus/Plan Next Note Type Treatment Note Next Visit Plan Review HEP Continue UE functional strengthening, ROM, STM
--- NOTE | 2025-01-12 11:28 | PT.OTN ---
Current Diagnoses Pain in left shoulder (01/12/25) Physical Therapy Treatment Note PT-OP-A Visit Information Start: 12/27/24 10:34 Freq: Status: Active Protocol: Document 01/12/25 10:45 [facility] (Rec: 01/12/25 11:27 [facility] [id number]) Out-Patient Physical Therapy Visit Information Visit Information Visit Type Treatment Note Visit Start Time 10:45 Visit Stop Time 11:30 Visit Number 3 Number of RESEARCH AND DEVELOPMENT SCIENTIST Visits 0 Evaluation Information Evaluation Date 12/27/24 PT-OP-B Current Condition Start: 12/27/24 10:34 Freq: Status: Active Protocol: Document 12/27/24 10:47 [facility] (Rec: 12/27/24 10:44 [facility] [id number]) Current Condition History of Current Condition Onset Date June 2024 Current Complaints L shoulder pain History of Current Patient is a 54 year old female with complaints of L Condition shoulder pain that started in Jul 17 while on a trip in [facility]. She states that some possible causes could be that while on the trip she snorkeled while holding on to a trapez while being dragged by a boat. Didn't start to feel sore/achey till long after. Other incident is where she woke up on night to reach back behind her while in supine that caused a lot of pain in her L UE. 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 Pain starts in the shoulder and sometimes radiates down to the elbow but not to the joint. Pain is described as achey, and also has unrelated neck pain. Out of fear of pain avoidance, she does a lot of guarding and limits her L UE ROM while doing everyday activities, including getting dressed and carrying groceries. Recently purchased an ice pack that she says relieves her pain for the rest of the day after using. X rays reveal no fractures. Denies any previous L UE injury, does mention some complaints of previous R UE pain. Prior Treatments and Hip replacement 24' Tests PT-OP-C Subjective Start: 12/27/24 10:34 Freq: Status: Active Protocol: Document 01/12/25 10:45 [facility] (Rec: 01/12/25 11:27 [facility] [id number]) OP-PT Subjective Patient Comments Patient Comments Pt notes she has been working on her posture, but it's difficult to keep it in mind all the time. Overhead movements continue to cause the most pain in her shoulder. PT-OP-E Functional Tests Start: 12/27/24 10:34 Freq: Status: Active Protocol: Document 12/27/24 10:47 [facility] (Rec: 12/27/24 13:01 [facility] [id number]) Functional Tests Apley's Scratch Test Action 1- Left lateral opp shoulder Action 1- Right posterior opp shoulder Action 2- Left C7 Action 2- Right T2 Action 3- Left T6 Action 3- Right T6 PT-OP-F Manual Assessment Start: 12/27/24 10:34 Freq: Status: Active Protocol: Document 12/27/24 10:47 [facility] (Rec: 12/27/24 12:00 [facility] [id number]) Manual Assessments Soft Tissue Assessment Soft Tissue Mobility Left supraspinatus atrophy as compared to the right Assessment PT-OP-K Range of Motion Start: 12/27/24 10:34 Freq: Status: Active Protocol: Document 12/27/24 10:47 [facility] (Rec: 12/27/24 12:02 [facility] [id number]) Shoulder Goniometric Range of Motion Shoulder Right Active Testing Position Sitting Flexion 135 Abduction 110 Left Active Testing Position Sitting Flexion 112 Abduction 81 Comments pain w/ flexion and abduction PT-OP-L Special Tests Start: 12/27/24 10:34 Freq: Status: Active Protocol: Document 12/27/24 10:47 [facility] (Rec: 12/27/24 12:06 [facility] [id number]) Special Tests Shoulder Special Tests Painful arc Test Results Positive L Passive ER Rotator Cuff Test Results negative Lift-Off Rotator Cuff Test Results negative Nunez Delonte Impingement Test Results negative Grind Labrum Test Results negative Empty Can Test Results positive L Drop Arm Rotator Cuff Test Results negative Belly Press Test Results Negative Apprehension Test Test Results Positive L PT-OP-M Strength Start: 12/27/24 10:34 Freq: Status: Active Protocol: Document 12/27/24 10:47 [facility] (Rec: 12/27/24 12:00 [facility] [id number]) Shoulder Strength Shoulder Manual Muscle Testing Right Flexion 5 Normal Abduction (C5) 5 Normal External Rotation 4+ Good+ Left Flexion 3+ Fair+ Abduction (C5) 3+ Fair+ External Rotation 3+ Fair+ Comments pain w/ flexion/abduction Elbow/Forearm Strength Elbow and Forearm Manual Muscle Testing Right Flexion (C6) 5 Normal Extension (C7) 5 Normal Left Flexion (C6) 4+ Good+ Extension (C7) 4- Good- Comments pain w/ extension PT-OP-Q Treatments Start: 12/27/24 10:34 Freq: Status: Active Protocol: Document 01/12/25 10:45 [facility] (Rec: 01/12/25 11:27 DC[facility] [id number]) Therapeutic Exercises Standing Exercises UE PNF Standing Exercise UE PNF D1/D2 Name Side bilateral Equipment Used 2.2# ball (no resistance L D2) Adduction Standing Exercise Shoulder Adduction Name Side bilateral Resistance Green Extension Standing Exercise Shoulder Extension Name Side bilateral Resistance Green Flexion Standing Exercise Shoulder Flexion Name Side bilateral Resistance Lv 2 Abduction Standing Exercise Shoulder Abduction Name Side bilateral Resistance Lv 2 Manual Therapy Treatment Soft Tissue Mobilization L shoulder Body Location L UT, LS, scalenes, Biceps long head, supraspinatus, deltoid, rhomboids, pe Mobilization Type Cross-Friction,Rolling,Sustained Pressure,Other Intensity/Depth Moderate Body Position Supine PT-OP-T Assessment and Plan Start: 12/27/24 10:34 Freq: Status: Active Protocol: Document 01/12/25 10:45 DC[facility] (Rec: 01/12/25 11:27 DCW [id number]) Physical Therapy Assessment Impairments Impairments Activity Tolerance,Functional Activities,Functional Mobility,Pain,Posture,ROM,Soft Tissue Mobility,Strength ,Tone Goals Three Impairment Pt does not have a cohesive HEP Short Term Goal (STG Pt will adhere and follow a cohesive HEP independently ) STG Duration 01/31/25 Two Impairment L UE weakness Sanitation Truck Cleaner Goal (LTG) To improve flexion/abduction/ER from 3+ -> 4 w/o pain to be able to carry groceries and caregive for her properly LTG Duration 03/07/25 One Impairment L UE flexion/abduction ROM limited Care Home Goal (LTG) To improve flexion ROM from 110 -> 130, and improve abduction ROM from 81 -> 100 w/ no pain so that pt can get dressed more efficiently w/o complications LTG Duration 03/07/25 Assessment Summary Assessment Pt tolerated treatment well, able to perform most activities within a pain-free ROM. Bilateral GH joints hypermobile, displays some slightly increased instability through joints. Will likely benefit to continue focus on strengthening and joint stability, as well as tone management. Physical Therapy Plan Frequency and Duration Frequency of 1x/Week Treatment Plan of Care Start 12/27/24 Date Plan of Care End 03/07/25 Date Therapeutic Interventions Therapeutic Home Exercise Program,Joint Mobilizations,Manual Interventions Therapy,Patient/Caregiver Education,Self-Care/Home Management,Soft Tissue Mobilization,Taping,Therapeutic Activities,Therapeutic Exercises Modalities Biofeedback,Cold Pack/Ice Massage,Electric Stimulation, Hot Packs,Infrared Therapy,Iontophoresis,Paraffin Bath, Traction- Mechanical,Ultrasound,Vasopneumatic Devices Next Visit Focus/Plan Next Note Type Treatment Note Next Visit Plan Review HEP Continue UE functional strengthening, ROM, STM
--- NOTE | 2025-01-20 15:41 | PT.OTN ---
Current Diagnoses Pain in left shoulder (01/20/25) Physical Therapy Treatment Note PT-OP-A Visit Information Start: 12/27/24 10:34 Freq: Status: Active Protocol: Document 01/20/25 13:08 NBM (Rec: 01/20/25 15:41 NBM Laptop) Out-Patient Physical Therapy Visit Information Visit Information Visit Type Treatment Note Visit Start Time 13:07 Visit Stop Time 13:50 Visit Number 4 Number of VICE PRESIDENT NETWORK DEVELOPMENT Visits 1 Evaluation Information Evaluation Date 12/27/24 PT-OP-B Current Condition Start: 12/27/24 10:34 Freq: Status: Active Protocol: Document 12/27/24 10:47 LFG (Rec: 12/27/24 10:44 LFG [id number]) Current Condition History of Current Condition Onset Date June 2024 Current Complaints L shoulder pain History of Current Patient is a 54 year old female with complaints of L Condition shoulder pain that started in Jul 17 while on a trip in [facility]. She states that some possible causes could be that while on the trip she snorkeled while holding on to a trapez while being dragged by a boat. Didn't start to feel sore/achey till long after. Other incident is where she woke up on night to reach back behind her while in supine that caused a lot of pain in her L UE. 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 Pain starts in the shoulder and sometimes radiates down to the elbow but not to the joint. Pain is described as achey, and also has unrelated neck pain. Out of fear of pain avoidance, she does a lot of guarding and limits her L UE ROM while doing everyday activities, including getting dressed and carrying groceries. Recently purchased an ice pack that she says relieves her pain for the rest of the day after using. X rays reveal no fractures. Denies any previous L UE injury, does mention some complaints of previous R UE pain. Prior Treatments and Hip replacement 24' Tests PT-OP-C Subjective Start: 12/27/24 10:34 Freq: Status: Active Protocol: Document 01/20/25 13:08 NBM (Rec: 01/20/25 15:41 NBM Laptop) OP-PT Subjective Patient Comments Patient Comments Margaret reports she hasn't done exercises as she has visitors. She's been doing a lot of cooking, and trying to be mindful of chin tuck , shoulders back and down in her back pockets, but pencil squeeze is hard so she hasn't been working on it. PT-OP-E Functional Tests Start: 12/27/24 10:34 Freq: Status: Active Protocol: Document 12/27/24 10:47 LFG (Rec: 12/27/24 13:01 LFG [id number]) Functional Tests Apley's Scratch Test Action 1- Left lateral opp shoulder Action 1- Right posterior opp shoulder Action 2- Left C7 Action 2- Right T2 Action 3- Left T6 Action 3- Right T6 PT-OP-F Manual Assessment Start: 12/27/24 10:34 Freq: Status: Active Protocol: Document 12/27/24 10:47 LFG (Rec: 12/27/24 12:00 LFG [id number]) Manual Assessments Soft Tissue Assessment Soft Tissue Mobility Left supraspinatus atrophy as compared to the right Assessment PT-OP-K Range of Motion Start: 12/27/24 10:34 Freq: Status: Active Protocol: Document 12/27/24 10:47 LFG (Rec: 12/27/24 12:02 LFG [id number]) Shoulder Goniometric Range of Motion Shoulder Right Active Testing Position Sitting Flexion 135 Abduction 110 Left Active Testing Position Sitting Flexion 112 Abduction 81 Comments pain w/ flexion and abduction PT-OP-L Special Tests Start: 12/27/24 10:34 Freq: Status: Active Protocol: Document 12/27/24 10:47 LFG (Rec: 12/27/24 12:06 LFG [id number]) Special Tests Shoulder Special Tests Painful arc Test Results Positive L Passive ER Rotator Cuff Test Results negative Lift-Off Rotator Cuff Test Results negative Nunez Delonte Impingement Test Results negative Grind Labrum Test Results negative Empty Can Test Results positive L Drop Arm Rotator Cuff Test Results negative Belly Press Test Results Negative Apprehension Test Test Results Positive L PT-OP-M Strength Start: 12/27/24 10:34 Freq: Status: Active Protocol: Document 12/27/24 10:47 LFG (Rec: 12/27/24 12:00 LFG [id number]) Shoulder Strength Shoulder Manual Muscle Testing Right Flexion 5 Normal Abduction (C5) 5 Normal External Rotation 4+ Good+ Left Flexion 3+ Fair+ Abduction (C5) 3+ Fair+ External Rotation 3+ Fair+ Comments pain w/ flexion/abduction Elbow/Forearm Strength Elbow and Forearm Manual Muscle Testing Right Flexion (C6) 5 Normal Extension (C7) 5 Normal Left Flexion (C6) 4+ Good+ Extension (C7) 4- Good- Comments pain w/ extension PT-OP-Q Treatments Start: 12/27/24 10:34 Freq: Status: Active Protocol: Document 01/20/25 13:08 NBM (Rec: 01/20/25 15:41 NBM Laptop) Therapeutic Exercises Supine Exercises Scapular retraction Supine Exercise Name HEP: stretch hands towards feet: 1. elbows 90 deg 2. hands at sides Side bilateral Reps/Minutes x10 ea Comments cues for scap setting wo UT overactivation; pos feedback response Sitting Exercises ER/IR Sitting Exercise ER/IR Name Side bilateral Resistance L1 Tb Reps/Minutes x10 Comments cues for chin tuck, scapular setting, breath; painfree Shoulder circles Sitting Exercise rolling shoulders back - retracting scapulas Name Side bilateral Reps/Minutes x15 Comments cues for breath and full relaxation Standing Exercises UE PNF Standing Exercise UE PNF D1/D2 Name Side bilateral Equipment Used 2.2# ball (no resistance L D2) Comments painfree range L D1/D2 improves with manual ST MWM & tactile cues L rhomboi Manual Therapy Treatment Consent Patient gave verbal Yes consent for manual treatment Soft Tissue Mobilization L shoulder Body Location L UT, LS, scalenes, supraspinatus, deltoid, rhomboids, pec, Lat Mobilization Type Cross-Friction,Rolling,Sustained Pressure,Other Intensity/Depth Moderate Body Position hooklying, sidelying Comments LE pillow supports in s/l Joint Mobilizations L ST Joint Scapulothoracic jt Direction pro/retraction, elev/depression Grade II Body Position Sidelying Reps/Duration x10 Comments L D1/D2 upward/downward rotation x5 in standing improves painfree range PT-OP-T Assessment and Plan Start: 12/27/24 10:34 Freq: Status: Active Protocol: Document 01/20/25 13:08 NBM (Rec: 01/20/25 15:41 NBM Laptop) Physical Therapy Assessment Impairments Impairments Activity Tolerance,Functional Activities,Functional Mobility,Pain,Posture,ROM,Soft Tissue Mobility,Strength ,Tone Goals Three Impairment Pt does not have a cohesive HEP Short Term Goal (STG Pt will adhere and follow a cohesive HEP independently ) STG Duration 01/31/25 Two Impairment L UE weakness Jail Goal (LTG) To improve flexion/abduction/ER from 3+ -> 4 w/o pain to be able to carry groceries and caregive for her properly LTG Duration 03/07/25 One Impairment L UE flexion/abduction ROM limited Revenue Cycle Manager Goal (LTG) To improve flexion ROM from 110 -> 130, and improve abduction ROM from 81 -> 100 w/ no pain so that pt can get dressed more efficiently w/o complications LTG Duration 03/07/25 Assessment Summary Assessment Margaret's painfree D1/D2 L shoulder ROM improves with mobilization to improve scapular rotation mechanics and tactile cueing for L Rhomboid activation for stability . Treatment focus on identifying appropriate scapular retractions without Upper Trapezius m. overactivation and pt demos greatly improved self-awareness and ability to perform by end of session. L Lattisimus dorsi m. restrictions palpated and pt is edu with visual aids for muscle folding around inferior aspect of scapula w/ shoulder flexion. Physical Therapy Plan Frequency and Duration Frequency of 1x/Week Treatment Plan of Care Start 12/27/24 Date Plan of Care End 03/07/25 Date Therapeutic Interventions Therapeutic Home Exercise Program,Joint Mobilizations,Manual Interventions Therapy,Patient/Caregiver Education,Self-Care/Home Management,Soft Tissue Mobilization,Taping,Therapeutic Activities,Therapeutic Exercises Modalities Biofeedback,Cold Pack/Ice Massage,Electric Stimulation, Hot Packs,Infrared Therapy,Iontophoresis,Paraffin Bath, Traction- Mechanical,Ultrasound,Vasopneumatic Devices Next Visit Focus/Plan Next Note Type Treatment Note Next Visit Plan Review HEP Continue UE functional strengthening, ROM, STM
--- NOTE | 2025-01-25 09:45 | PT.OTN ---
Current Diagnoses Pain in left shoulder (01/25/25) Physical Therapy Treatment Note PT-OP-A Visit Information Start: 12/27/24 10:34 Freq: Status: Active Protocol: Document 01/25/25 09:06 SP (Rec: 01/25/25 09:50 SP [id number]) Out-Patient Physical Therapy Visit Information Visit Information Visit Type Treatment Note Visit Start Time 09:06 Visit Stop Time 09:45 Visit Number 2 Number of CASHIER SELF SERVICE GASOLINE Visits 1 PT-OP-B Current Condition Start: 12/27/24 10:34 Freq: Status: Active Protocol: Document 12/27/24 10:47 LFG (Rec: 12/27/24 10:44 LFG [id number]) Current Condition History of Current Condition Onset Date June 2024 Current Complaints L shoulder pain History of Current Patient is a 54 year old female with complaints of L Condition shoulder pain that started in Jul 17 while on a trip in [facility]. She states that some possible causes could be that while on the trip she snorkeled while holding on to a trapez while being dragged by a boat. Didn't start to feel sore/achey till long after. Other incident is where she woke up on night to reach back behind her while in supine that caused a lot of pain in her L UE. 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 Pain starts in the shoulder and sometimes radiates down to the elbow but not to the joint. Pain is described as achey, and also has unrelated neck pain. Out of fear of pain avoidance, she does a lot of guarding and limits her L UE ROM while doing everyday activities, including getting dressed and carrying groceries. Recently purchased an ice pack that she says relieves her pain for the rest of the day after using. X rays reveal no fractures. Denies any previous L UE injury, does mention some complaints of previous R UE pain. 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 PT-OP-E Functional Tests Start: 12/27/24 10:34 Freq: Status: Active Protocol: Document 12/27/24 10:47 LFG (Rec: 12/27/24 13:01 LFG [id number]) Functional Tests Apley's Scratch Test Action 1- Left lateral opp shoulder Action 1- Right posterior opp shoulder Action 2- Left C7 Action 2- Right T2 Action 3- Left T6 Action 3- Right T6 PT-OP-F Manual Assessment Start: 12/27/24 10:34 Freq: Status: Active Protocol: Document 12/27/24 10:47 LFG (Rec: 12/27/24 12:00 LFG [id number]) Manual Assessments Soft Tissue Assessment Soft Tissue Mobility Left supraspinatus atrophy as compared to the right Assessment PT-OP-K Range of Motion Start: 12/27/24 10:34 Freq: Status: Active Protocol: Document 12/27/24 10:47 LFG (Rec: 12/27/24 12:02 LFG [id number]) Shoulder Goniometric Range of Motion Shoulder Right Active Testing Position Sitting Flexion 135 Abduction 110 Left Active Testing Position Sitting Flexion 112 Abduction 81 Comments pain w/ flexion and abduction PT-OP-L Special Tests Start: 12/27/24 10:34 Freq: Status: Active Protocol: Document 12/27/24 10:47 LFG (Rec: 12/27/24 12:06 LFG [id number]) Special Tests Shoulder Special Tests Painful arc Test Results Positive L Passive ER Rotator Cuff Test Results negative Lift-Off Rotator Cuff Test Results negative Nunez Delonte Impingement Test Results negative Grind Labrum Test Results negative Empty Can Test Results positive L Drop Arm Rotator Cuff Test Results negative Belly Press Test Results Negative Apprehension Test Test Results Positive L PT-OP-M Strength Start: 12/27/24 10:34 Freq: Status: Active Protocol: Document 12/27/24 10:47 LFG (Rec: 12/27/24 12:00 LFG [id number]) Shoulder Strength Shoulder Manual Muscle Testing Right Flexion 5 Normal Abduction (C5) 5 Normal External Rotation 4+ Good+ Left Flexion 3+ Fair+ Abduction (C5) 3+ Fair+ External Rotation 3+ Fair+ Comments pain w/ flexion/abduction Elbow/Forearm Strength Elbow and Forearm Manual Muscle Testing Right Flexion (C6) 5 Normal Extension (C7) 5 Normal Left Flexion (C6) 4+ Good+ Extension (C7) 4- Good- Comments pain w/ extension PT-OP-Q Treatments Start: 12/27/24 10:34 Freq: Status: Active Protocol: Document 01/25/25 09:06 SP (Rec: 01/25/25 09:50 SP [id number]) Therapeutic Exercises Supine Exercises over foam roller Supine Exercise Name added to HEP (with HO): FF, HABD, Ws, ER, Diagonal 1/2 X Side bilateral Resistance AROM R only then added TB#1 Equipment Used spinal along foam roller Reps/Minutes 10 reps each Comments cued and tactile cue prox humeral inf and scapular glide improved range Sidelying Exercises Shld series Sidelying Exercise abd, HABD, FF- added to HEP (hand written wording on HO Name ) Side left Resistance AROM Reps/Minutes 5 reps each direction Comments tactile cues scap retraction and depression into rang OH Standing Exercises Wall Slide Y off Wall Standing Exercise added to HEP with light resistance- hand written Name wording on HO Side bilateral Resistance TB #1 Reps/Minutes 10 reps Comments cued slow, improved OH reach wall support Manual Therapy Treatment Consent Patient gave verbal Yes consent for manual treatment Soft Tissue Mobilization L shoulder Body Location L UT, LS, scalenes, supraspinatus, deltoid, rhomboids, pec, Lat, coracobrac Mobilization Type Cross-Friction,Rolling,Sustained Pressure,Other Intensity/Depth Moderate Body Position hooklying, sidelying Comments LE pillow supports in s/l Joint Mobilizations L ST Joint Scapulothoracic jt and GH Jt Direction pro/retraction, elev/depression; inferior / posterior glide. Grade II Body Position Sidelying Reps/Duration x10 Comments Tactile and VCs- L HABD and D1/D2 upward/downward rotation x5 in SL improves painfree range PT-OP-T Assessment and Plan Start: 12/27/24 10:34 Freq: Status: Active Protocol: Document 01/25/25 09:06 SP (Rec: 01/25/25 09:50 SP [id number]) Physical Therapy Assessment Goals Three Impairment Pt does not have a cohesive HEP Short Term Goal (STG Pt will adhere and follow a cohesive HEP independently ) STG Duration 01/31/25 Two Impairment L UE weakness Crusher Goal (LTG) To improve flexion/abduction/ER from 3+ -> 4 w/o pain to be able to carry groceries and caregive for her properly LTG Duration 03/07/25 One Impairment L UE flexion/abduction ROM limited Long-Term Goal (LTG) To improve flexion ROM from 110 -> 130, and improve abduction ROM from 81 -> 100 w/ no pain so that pt can get dressed more efficiently w/o complications LTG Duration 03/07/25 Assessment Summary Assessment Pt responded well to manual and improved further AROM with provided tactile and VCs during ther ex for proximal humeral inferior and posterior glide during abd, FF and HABD AROM today. Good tolerance to progressed SL multidirectional and hooklying over foam roller so added light resistance with ceus for slower motion reports actually helps GHjt and Scapulothoracic Jt feel moves easier but tiring. Provided HO for set up /recall carryover home. Reported no pain with AROM then light resistance Wall Ys slides then lift off wall. Physical Therapy Plan Frequency and Duration Frequency of 1x/Week Treatment Plan of Care Start 12/27/24 Date Plan of Care End 03/07/25 Date Therapeutic Interventions Therapeutic Home Exercise Program,Joint Mobilizations,Manual Interventions Therapy,Patient/Caregiver Education,Self-Care/Home Management,Soft Tissue Mobilization,Taping,Therapeutic Activities,Therapeutic Exercises Modalities Biofeedback,Cold Pack/Ice Massage,Electric Stimulation, Hot Packs,Infrared Therapy,Iontophoresis,Paraffin Bath, Traction- Mechanical,Ultrasound,Vasopneumatic Devices Next Visit Focus/Plan Next Note Type Treatment Note Next Visit Plan Review HEP: added SL AROM LUE, over foam roller with TB , stand Ys off wall. Continue UE functional strengthening, ROM, STM
--- NOTE | 2025-02-08 10:34 | PT.OPPN ---
Current Diagnoses Pain in left shoulder (02/08/25) Physical Therapy Progress Note PT OP: Cervical/Upper Extremity Start: 01/27/25 15:44 Freq: Status: Active Protocol: Document 02/08/25 09:47 DCW (Rec: 02/08/25 10:33 DCW [id number]) Out-Patient Physical Therapy Visit Information Visit Information Visit Type Progress Note Visit Start Time 09:47 Visit Stop Time 10:30 Visit Number 6 Number of SPECIAL SERVICES COORDINATOR Visits 0 Progress Note Due 03/10/25 Evaluation Information Evaluation Date 12/27/24 OP-PT Subjective Patient Comments Patient Comments Guarded, but I think I'm doing okay. Notes she had vertigo on Friday night for the first time ever, was throwing up for two hours. Shoulder Goniometric Range of Motion Shoulder Measured in Degrees Right Active Testing Position Sitting Flexion 151 Abduction 146 Left Active Testing Position Sitting Flexion 130 Abduction 142 Comments pain w/ flexion and abduction Shoulder Strength Shoulder Manual Muscle Testing Right Flexion 5 Normal Abduction (C5) 5 Normal External Rotation 4+ Good+ Internal Rotation 4+ Good+ Left Flexion 4 Good Abduction (C5) 4- Good- External Rotation 4- Good- Internal Rotation 4 Good Comments No pain with muscle testing Therapeutic Exercises Standing Exercises HAbd Standing Exercise Horizontal Abduction ball pass hand to hand Name Side bilateral Resistance Yellow 2.2# ball ER/IR Standing Exercise ER/IR at 90/90 Name Side bilateral Resistance Red 3.3# ball Extension Standing Exercise Shoulder Extension Name Side bilateral Resistance Blue Flexion Standing Exercise Shoulder Flexion Name Side bilateral Resistance Lv 3 Abduction Standing Exercise Shoulder Abduction Name Side bilateral Resistance Lv 3 Other Exercises Body Blade Other Exercise Name Body Blade Side bilateral Resistance Yellow Comments Flexion, Abduction Resisted UE Ambulation Other Exercise Name Resisted UE side-stepping Resistance Lv 1 loop Manual Therapy Treatment Consent Patient gave verbal Yes consent for manual treatment Soft Tissue Mobilization L shoulder Body Location L UT, LS, scalenes, supraspinatus, deltoid, rhomboids, pec, Lat, coracobrac Mobilization Type Cross-Friction,Rolling,Sustained Pressure,Other Intensity/Depth Moderate Body Position Hooklying Joint Mobilizations L ST Joint Scapulothoracic jt and GH Jt Direction pro/retraction, elev/depression; inferior / posterior glide. Grade II Body Position Hooklying Reps/Duration x10 Physical Therapy Assessment Impairments Impairments Activity Tolerance,Functional Activities,Functional Mobility,Pain,Posture,ROM,Soft Tissue Mobility,Strength ,Tone Goals Three Impairment Pt does not have a cohesive HEP Short Term Goal (STG Pt will adhere and follow a cohesive HEP independently ) STG Duration 01/31/25 Two Impairment L UE weakness Fire Protection Inspector Goal (LTG) To improve flexion/abduction/ER from 3+ -> 4 w/o pain to be able to carry groceries and caregive for her properly LTG Duration 03/07/25 One Impairment L UE flexion/abduction ROM limited Shelter Goal (LTG) To improve flexion ROM from 110 -> 130, and improve abduction ROM from 81 -> 100 w/ no pain so that pt can get dressed more efficiently w/o complications LTG Duration Met Assessment Summary Assessment Pt unsure if she would like to continue, hoping to get MRI approved at this time, wants to see how this progresses, will reach back out later to schedule if needed. Overall doing well, showing improvement with ROM and strength, much less pain with activity. Physical Therapy Plan Frequency and Duration Frequency of 1x/Week Treatment Plan of Care Start 12/27/24 Date Plan of Care End 03/07/25 Date Therapeutic Interventions Therapeutic Home Exercise Program,Joint Mobilizations,Manual Interventions Therapy,Patient/Caregiver Education,Self-Care/Home Management,Soft Tissue Mobilization,Taping,Therapeutic Activities,Therapeutic Exercises Modalities Biofeedback,Cold Pack/Ice Massage,Electric Stimulation, Hot Packs,Infrared Therapy,Iontophoresis,Paraffin Bath, Traction- Mechanical,Ultrasound,Vasopneumatic Devices Next Visit Focus/Plan Next Note Type Treatment Note Next Visit Plan Review HEP: added SL AROM LUE, over foam roller with TB , stand Ys off wall. Continue UE functional strengthening, ROM, STM
--- NOTE | 2025-03-07 09:43 | PT.OPDS ---
Current Diagnoses Pain in left shoulder (02/08/25) Visit Care Team Role Provider Type JONH Farah Family Provider Non-Staff Specialty: Family Practice Address: [address] [place] [address], [id number] Email: JONH Jefferson Attending Provider Advanced Domestic Violence Advocate Primary Care Provider Referring Provider Specialty: Medical Address: [address] [place] [address], [id number] Email: [email or web address] Visit Number Visit Number 6 Discharge Summary PT OP: Cervical/Upper Extremity Start: 01/27/25 15:44 Freq: Status: Active Protocol: Document 03/07/25 09:42 DCW (Rec: 03/10/25 09:43 DCW [id number]) Physical Therapy Assessment Goals Three Impairment Pt does not have a cohesive HEP Short Term Goal (STG Pt will adhere and follow a cohesive HEP independently ) STG Duration 01/31/25 Two Impairment L UE weakness Mcfp Goal (LTG) To improve flexion/abduction/ER from 3+ -> 4 w/o pain to be able to carry groceries and 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 Discharge this chart.
== END 2025-03-10 13:30 | disposition home or self-care (01) ==
LOC: PHYS 09:45
PROVIDERS: Family Provider Nurse Practitioner; PCP Registered Nurse Diabetes Educator; Referring Provider Registered Nurse Diabetes Educator; Visit Provider Registered Nurse Diabetes Educator
DX: M25.512 Pain in left shoulder (principal)
CPT/HCPCS: 97110; 97140; 97162; 97535

== ENCOUNTER 2025-06-02 08:15 | Outpatient (RCR) | payer OTHER, SELFPAY ==
--- NOTE | 2025-03-11 15:31 | PT.OIE ---
Current Diagnoses Pain in left shoulder (03/11/25) Past Medical History (Last Reviewed 08/22/24 @ 13:45 by JONH Jefferson) Abnormal Pap smear of cervix (~1996) Anxiety Asthma (~1975) Bilateral foot pain Bilateral hand pain Carpal tunnel syndrome (~2016) Cervical dysplasia (~1993) Cervical somatic dysfunction Chicken pox (~1974) Chronic lower back pain Chronic thoracic back pain Cranial somatic dysfunction Depression (~2011) Dyslipidemia Eczema Excess ear wax External hemorrhoid (~1995) Follicle stimulating hormone excess Frequent UTI Gestational diabetes Hand pain Headache Headache above the eye region Human papilloma virus (~1996) Labral tear of hip joint Menopause Menorrhagia (~1983) Migraines Osteoarthritis of right hip Ovarian cyst (~2013) Pain of foot Painful menstrual periods (~1983) Palpitations Pelvic somatic dysfunction Right hip pain Scoliosis Segmental and somatic dysfunction of sacral region Segmental and somatic dysfunction of thoracic region Sinus pain Vaginal atrophy Past Surgical History (Last Reviewed 08/22/24 @ 13:45 by JONH Jefferson) Anesthesia History of section (~1989) Visit Care Team Role Provider Type JONH Jefferson Primary Care Provider Advanced Purchasing Administrator Specialty: Medical Address: [address] [place] [address], [facility] Email: [email or web address] JONH Farah Family Provider Non-Staff Specialty: [facility] Practice Address: [address] [place] [address], [id number] Email: JONH Zelaya Attending Provider Non-Staff Referring Provider Specialty: [facility] Practice Address: [address] [place] [address], [id number] Email: Physical Therapy Initial Evaluation PT OP: Cervical/Upper Extremity Start: 03/11/25 13:03 Freq: Status: Active Protocol: Document 03/11/25 13:06 BRITANY (Rec: 03/11/25 15:31 BRITANY [id number]) Out-Patient Physical Therapy Visit Information Visit Information Visit Type Initial Evaluation Visit Note 1 Visit Start Time 13:00 Visit Stop Time 13:45 Visit Number 1 Number of MANGLE ROLL OPERATOR Visits 0 Progress Note Due 04/10/25 Evaluation Information Evaluation Date 03/11/25 OP-PT Subjective Patient Comments Patient Comments History of current diagnosis: Patient reports she has L shoulder pain that started years ago. She reports the pain initially started when she was doing some TRX exercises. Recently she hurt it again when she was snorkeling. She reports she babies her arm and has pain when doing movements with external load. She reports she had PT at [facility] recently prior to her MRI. She reports she was working on strengthening with bands , and some manual therapy. She reports she did not feel she made any improvement. 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 Physical activities/ hobbies: Driving, cooking, cleaning. Walking, crafting (deisy, painting) Pain location: Anterior L shoulder. Down the arm sometimes when irritated. Pain description: Sharp, achy at times Pain (current): 0/10 Pain (worst): 5/10 - up to an 8/10 when irritated Pain (best): 0/10 Aggrovators: Reaching, lifting Allevietors: rest Function prior to injury: Independent with all ADLs Function current: Independent with all ADLs - limited with reaching, lifting Patient goals: Improve pain levels, find exercise routine (owns bands and light bumbells) Patient Questionnaires Quick Dash- Upper Extremity Quick Dash UE Score 22.7 Quick Dash UE 20 to 39% Impaired (Score 20-39) Impairment Shoulder Goniometric Range of Motion Shoulder R passive Shoulder ROM WFL Yes Testing Position Supine Flexion 180 Abduction 180 External Rotation at 90 90 degrees Abduction Internal Rotation 45 R active Shoulder ROM WFL Yes Flexion 180 Abduction 180 External Rotation at 90 90 degrees Abduction Internal Rotation 45 L passive Shoulder ROM WFL Yes Testing Position Supine Flexion 175 Abduction 180 External Rotation at 90 90 degrees Abduction Internal Rotation 45 L Active Shoulder ROM WFL Yes Testing Position Supine Flexion 160 Abduction 150 External Rotation at 90 90 degrees Abduction Internal Rotation 45 Special Tests Shoulder Special Tests Painful arc Test Results + L Empty Can Test Results - L Comments Full can + L Drop Arm Rotator Cuff Test Results + L Shoulder Strength Shoulder Manual Muscle Testing L Flexion 4 Good Abduction (C5) 3+ Fair+ External Rotation 4 Good Internal Rotation 5 Normal R Flexion 5 Normal Abduction (C5) 5 Normal External Rotation 5 Normal Internal Rotation 5 Normal Physical Therapy Assessment Goals 3 Impairment Pain levels Short Term Goal (STG Patient will report a reduction in pain at worst to a ) 410 in order to better function with completing tasks around her home. STG Duration 3 weeks Graphite Mill Operator Goal (LTG) Patient will report a reduction in pain at worst to a 2 /10 in order to better function with completing tasks around her home. LTG Duration 6 weeks 2 Impairment HEP Short Term Goal (STG Patient will initiate home exercise program. ) STG Duration 3 weeks Graphite Mill Operator Goal (LTG) Patient will be independent with home exercise in order to maintain progress independently. LTG Duration 6 weeks One Impairment L shoulder flexion strength Short Term Goal (STG Patient will demonstrate an increase in pain free L ) shoulder flexion strength to 4/5 MMT in order to better function with lifting. STG Duration 3 weeks Graphite Mill Operator Goal (LTG) Patient will demonstrate an increase in pain free L shoulder flexion strength to 5/5 MMT in order to better function with lifting. LTG Duration 6 weeks Assessment Summary Assessment Patient presenting to PT with complaints of chronic L shoulder pain. Functional deficits include reaching with involved UE and lifting with involved UE. Objective investigation revealed deficits in L shoulder strength (see objective measures: flexion, abduction ER), ROM (See objective measures: L flexion, abduction AROM), and positive special tests for rotator cuff pathology. 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 Physical Therapy Plan Frequency and Duration Frequency of 2x/Week Treatment Duration of 12 treatment (weeks) Plan of Care Start 03/11/25 Date Plan of Care End 06/09/25 Date Therapeutic Interventions Therapeutic Coordination Training,Home Exercise Program,Joint Interventions Mobilizations,Manual Therapy,Neuromuscular Re-education ,Patient/Caregiver Education,Self-Care/Home Management, Soft Tissue Mobilization,Taping,Therapeutic Activities, Therapeutic Exercises Modalities Biofeedback,Cold Pack/Ice Massage,Electric Stimulation, Hot Packs,Iontophoresis,Ultrasound Next Visit Focus/Plan Next Note Type Treatment Note Next Visit Plan Initiate further L shoulder strengthening exercises including weight bearing shoulder taps, rotation strengthening at side. Access Code: [email or web address] URL: [email or web address] Date: 03/11/2025 Prepared by: Greer Ochoa Exercises - Standing Shoulder Flexion with Resistance - 1 x daily - 3-4 x weekly - 3 sets - 10 reps - 3 hold - Standing Shoulder Scaption with Resistance - 1 x daily - 3-4 x weekly - 3 sets - 10 reps - 3 hold - Band Pull apart - 1 x daily - 3-4 x weekly - 3 sets - 10 reps - 3 hold - seconds tempo
--- NOTE | 2025-03-14 10:38 | PT.OTN ---
Current Diagnoses Pain in left shoulder (03/14/25) Physical Therapy Treatment Note PT OP: Cervical/Upper Extremity Start: 03/11/25 13:03 Freq: Status: Active Protocol: Document 03/14/25 09:47 BRITANY (Rec: 03/14/25 10:38 BRITANY [id number]) Out-Patient Physical Therapy Visit Information Visit Information Visit Type Treatment Note Visit Start Time 09:45 Visit Stop Time 10:30 Visit Number 2 Number of TRAIN CONTROL TECHNICIAN Visits 0 Progress Note Due 04/10/25 OP-PT Subjective Patient Comments Patient Comments Patient reports her shoulder is feeling good today. She notes some radiating symptoms this morning and she reports she was resting her elbow on the window on the way to PT and she felt some numbness. Therapeutic Exercises Standing Exercises Median nerve glide Reps/Minutes 2x10 90-90 flexion band ER Resistance level 1 Reps/Minutes 3x10 Pushups from elevated Equipment Used Table Reps/Minutes 3x8 Plank position shoulder taps Reps/Minutes 1x10 Band pull apart Resistance level 3 band Reps/Minutes 3x10 Supinated band flexion Resistance level 2 Reps/Minutes 3x10 Standing band abduction Resistance level 3 Reps/Minutes 3x10 Standing band flexion Resistance level 3 Reps/Minutes 3x10 Physical Therapy Assessment Goals 3 Impairment Pain levels Short Term Goal (STG Patient will report a reduction in pain at worst to a ) 410 in order to better function with completing tasks around her home. STG Duration 3 weeks Half-Way Goal (LTG) Patient will report a reduction in pain at worst to a 2 /10 in order to better function with completing tasks around her home. LTG Duration 6 weeks 2 Impairment HEP Short Term Goal (STG Patient will initiate home exercise program. ) STG Duration 3 weeks City Clerk Goal (LTG) Patient will be independent with home exercise in order to maintain progress independently. LTG Duration 6 weeks One Impairment L shoulder flexion strength Short Term Goal (STG Patient will demonstrate an increase in pain free L ) shoulder flexion strength to 4/5 MMT in order to better function with lifting. STG Duration 3 weeks City Clerk Goal (LTG) Patient will demonstrate an increase in pain free L shoulder flexion strength to 5/5 MMT in order to better function with lifting. LTG Duration 6 weeks Assessment Summary Assessment Treatment was initiated with focus on shoulder strengthening in pain free ranges. Patient tolerated treatment well with no increases in pain levels. Plan next session to follow up on lasting response to today' s session and continue with plan of care. Physical Therapy Plan Frequency and Duration Frequency of 2x/Week Treatment Duration of 12 treatment (weeks) Plan of Care Start 03/11/25 Plan of Care End 06/09/25 Date Therapeutic Interventions Therapeutic Coordination Training,Home Exercise Program,Joint Interventions Mobilizations,Manual Therapy,Neuromuscular Re-education ,Patient/Caregiver Education,Self-Care/Home Management, Soft Tissue Mobilization,Taping,Therapeutic Activities, Therapeutic Exercises Modalities Biofeedback,Cold Pack/Ice Massage,Electric Stimulation, Hot Packs,Iontophoresis,Ultrasound Next Visit Focus/Plan Next Visit Plan Follow up on response to today's session. Update HEP as appropriate. Access Code: [email or web address] URL: [email or web address] Date: 03/11/2025 Prepared by: Greer Ochoa Exercises - Standing Shoulder Flexion with Resistance - 1 x daily - 3-4 x weekly - 3 sets - 10 reps - 3 hold - Standing Shoulder Scaption with Resistance - 1 x daily - 3-4 x weekly - 3 sets - 10 reps - 3 hold - Band Pull apart - 1 x daily - 3-4 x weekly - 3 sets - 10 reps - 3 hold - seconds tempo
--- NOTE | 2025-03-16 10:38 | PT.OTN ---
Current Diagnoses Pain in left shoulder (03/16/25) Physical Therapy Treatment Note PT OP: Cervical/Upper Extremity Start: 03/11/25 13:03 Freq: Status: Active Protocol: Document 03/16/25 09:40 JZ (Rec: 03/16/25 10:38 JZ [id number]) Out-Patient Physical Therapy Visit Information Visit Information Visit Type Treatment Note Visit Start Time 09:45 Visit Stop Time 10:30 Visit Number 3 Number of PATTERN TECHNICIAN Visits 0 Progress Note Due 04/10/25 OP-PT Subjective Patient Comments Patient Comments Patient reports she has some muscular soreness yesterday that has since subsided. She notes some pain this morning. Therapeutic Exercises Standing Exercises Weight bearing shoulder rotations Standing Exercise Transverse plane rotations from elevated table Name Side bilateral Reps/Minutes 3x10 each side Band IR/ ER Resistance level 2 band Reps/Minutes 3x10 each direction 90-90 flexion band ER Resistance level 1 Reps/Minutes 3x10 Pushups from elevated Equipment Used table Reps/Minutes 2x5 Plank position shoulder taps Reps/Minutes 2x10 Band pull apart Resistance level 3 band Reps/Minutes 3x10 Supinated band flexion Resistance level 2 Reps/Minutes 3x10 Standing band abduction Resistance level 2 Reps/Minutes 3x10 Standing band flexion Resistance level 3 Reps/Minutes 3x10 Physical Therapy Assessment Goals 3 Impairment Pain levels Short Term Goal (STG Patient will report a reduction in pain at worst to a ) 410 in order to better function with completing tasks around her home. STG Duration 3 weeks Retirement Goal (LTG) Patient will report a reduction in pain at worst to a 2 /10 in order to better function with completing tasks around her home. LTG Duration 6 weeks 2 Impairment HEP Short Term Goal (STG Patient will initiate home exercise program. ) STG Duration 3 weeks Retirement Goal (LTG) Patient will be independent with home exercise in order to maintain progress independently. LTG Duration 6 weeks One Impairment L shoulder flexion strength Short Term Goal (STG Patient will demonstrate an increase in pain free L ) shoulder flexion strength to 4/5 MMT in order to better function with lifting. STG Duration 3 weeks Retirement Goal (LTG) Patient will demonstrate an increase in pain free L shoulder flexion strength to 5/5 MMT in order to better function with lifting. LTG Duration 6 weeks Assessment Summary Assessment Treatment focused on L shoulder strengthening in open and closed chain. Patient tolerated treatment well with no lasting increases in pain levels. Plan next session to follow up on home exercises and continue with plan of care. Physical Therapy Plan Frequency and Duration Frequency of 2x/Week Treatment Duration of 12 treatment (weeks) Plan of Care Start 03/11/25 Date Plan of Care End 06/09/25 Date Next Visit Focus/Plan Next Visit Plan Follow up on response to today's session. Update HEP as appropriate. Access Code: [email or web address] URL: [email or web address] Date: 03/11/2025 Prepared by: Greer Ochoa Exercises - Standing Shoulder Flexion with Resistance - 1 x daily - 3-4 x weekly - 3 sets - 10 reps - 3 hold - Standing Shoulder Scaption with Resistance - 1 x daily - 3-4 x weekly - 3 sets - 10 reps - 3 hold - Band Pull apart - 1 x daily - 3-4 x weekly - 3 sets - 10 reps - 3 hold - seconds tempo
--- NOTE | 2025-03-23 11:27 | PT.OTN ---
Current Diagnoses Pain in left shoulder (03/23/25) Physical Therapy Treatment Note PT OP: Cervical/Upper Extremity Start: 03/11/25 13:03 Freq: Status: Active Protocol: Document 03/23/25 10:49 SP (Rec: 03/23/25 12:18 SP [id number]) Out-Patient Physical Therapy Visit Information Visit Information Visit Type Treatment Note Visit Start Time 10:49 Visit Stop Time 11:27 Visit Number 4 Number of AFFILIATE MARKETING MANAGER Visits 1 Progress Note Due 04/10/25 OP-PT Subjective Patient Comments Patient Comments Pt reports was sore after last tx, did alot of good activity. 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 Due to soreness, only did her HEP once since last tx. DIdn't think about using cold/warm pack for support. Cardio Equipment Upper Body Ergometer (UBE) Duration (Minutes) 4 RPM 55 Seat Position 10 Height 3 Other 30 min f/b RPEs: 11 fairly light- cued RHomboid fac for eliminate clicking Therapeutic Exercises Standing Exercises Neck Stretching Standing Exercise added to HEP (declined HO): UT, LS, Scalenes Name Side right Resistance A/AAROM Equipment Used (she has figured out how to perform self) Reps/Minutes 30 sec hold each 1-2 reps Comments cued SB (UT), look at opposite arm pit (LS), CS rotation/look up (scalene) UE Wall Walking Standing Exercise added to HEP (declined HO) Name Side bilateral Resistance Tb #3 [place] Equipment Used forearms on/ facing wall (straight elbows to much UT compensations) Reps/Minutes 20 ft x1ap Comments Min cues for LT and Rhomobid fac, slow con/eccentric scap mobiltiy Band IR/ ER Side left Resistance level 2 band (orange) Reps/Minutes 3x10 each direction alternating Comments cued rhomboid engagment needed, slow pacing Median nerve glide Side left Reps/Minutes 2x10 Comments no tingling, cued angle hand as needed for nerve moiblity non symptomatic Pushups from elevated Equipment Used table (29) 1 st set> TM rail 2nd & 3rd set (44) Reps/Minutes 6, 15, 12 Comments Good form, less carpal pressure TM rail (similar to home rail) Band pull apart Standing Exercise HABD chest height Name Side bilateral Resistance level 3 band Equipment Used front of mirror for self postural corrections Reps/Minutes 3x10 Comments palms up Supinated band flexion Side bilateral Resistance level 2 (not able progress TB #3 yet) Equipment Used front of mirror for self postural corrections Reps/Minutes 3x10 Comments limited full range on L, cued palm toward ear and supinated Standing band abduction Resistance level 2 Equipment Used front of mirror for self postural corrections Reps/Minutes 3x10 Other Exercises Self STMs Other Exercise Name Instruction theracane: neck ES, UT, LS Side right Reps/Minutes 2 min total Comments MWM- head nods/turns/shld shrugs, verbal review use ball on wall scap STMs Self-Care/Home Management Treatment Education Patient Education Body Mechanics,Home Exercise Program,Pain Management, Posture Other Education Education on postural alignment, level shlds during ther ex, instruction use of theracance performance MWM neck/scap musculature for home STMs and goal humeral full range for awareness range performance tolerated with resistance bands has. Added resisted UE wall walking today. Physical Therapy Assessment Goals 3 Impairment Pain levels Short Term Goal (STG Patient will report a reduction in pain at worst to a 4 ) /10 in order to better function with completing tasks around her home. STG Duration 3 weeks Damper Maker Goal (LTG) Patient will report a reduction in pain at worst to a 2 /10 in order to better function with completing tasks around her home. LTG Duration 6 weeks 2 Impairment HEP Short Term Goal (STG Patient will initiate home exercise program. ) 03/23/25: GOAL MET: has been instructed in HEP: standing TB FF, ABD, ER, IR, HABD, incline pushups, added resisted UE forearm wall walking today, self STMs with theracane MWM head turns/nods/scap mobilty, stretching: UT,LS, Scalenes. STG Duration 3 weeks GOAL MET 03/23/25 Damper Maker Goal (LTG) Patient will be independent with home exercise in order to maintain progress independently. LTG Duration 6 weeks One Impairment L shoulder flexion strength Short Term Goal (STG Patient will demonstrate an increase in pain free L ) shoulder flexion strength to 4/5 MMT in order to better function with lifting. STG Duration 3 weeks Alf Goal (LTG) Patient will demonstrate an increase in pain free L shoulder flexion strength to 5/5 MMT in order to better function with lifting. LTG Duration 6 weeks Assessment Summary Assessment Cues for postural and shoulder level alignment during resisted ther ex, tends to over recruit UT at times, us of mirror for self feedback corrections was helpful this session. Good toleratance to addition of resisted UE wall walking this tx for posterior scapular strengthening, cued education provided for posture and different UE positioning for best effort and least UT compensations. Pt declined HO for home visual. Physical Therapy Plan Frequency and Duration Frequency of 2x/Week Treatment Duration of 12 treatment (weeks) Plan of Care Start 03/11/25 Date Plan of Care End 06/09/25 Date Therapeutic Interventions Therapeutic Coordination Training,Home Exercise Program,Joint Interventions Mobilizations,Manual Therapy,Neuromuscular Re-education ,Patient/Caregiver Education,Self-Care/Home Management, Soft Tissue Mobilization,Taping,Therapeutic Activities, Therapeutic Exercises Modalities Biofeedback,Cold Pack/Ice Massage,Electric Stimulation, Hot Packs,Iontophoresis,Ultrasound Next Visit Focus/Plan Next Note Type Treatment Note Next Visit Plan Recheck added resisted UE wall walking, ask if got theracane for self STMs POC: Progress ROM and strengthening as appropriate to allow return to washing 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
--- NOTE | 2025-03-31 10:40 | PT.OTN ---
Current Diagnoses Pain in left shoulder (03/31/25) Physical Therapy Treatment Note PT OP: Cervical/Upper Extremity Start: 03/11/25 13:03 Freq: Status: Active Protocol: Document 03/31/25 09:50 JZ (Rec: 03/31/25 10:40 JZ [id number]) Out-Patient Physical Therapy Visit Information Visit Information Visit Start Time 09:50 Visit Stop Time 10:30 Visit Number 5 Number of MARKETING OFFICER Visits 0 Progress Note Due 04/10/25 OP-PT Subjective Patient Comments Patient Comments Patient reports her shoulder has been doing well. She reports she has been doing her home exercises infrequently. She reports no current pain. Therapeutic Exercises Standing Exercises Median nerve glides Reps/Minutes 2x15 Comments Instructed to go to the start of symptoms then immediately return Band IR/ ER Side left Resistance Blue band Reps/Minutes 3x10 each direction 90-90 flexion band ER Resistance level 1 Reps/Minutes 2x10 Pushups from elevated Equipment Used TM rail Reps/Minutes 3x10 Plank position shoulder taps Reps/Minutes 1x10 Band pull apart Side bilateral Resistance level 3 band Reps/Minutes 3x10 Comments palms up Standing band abduction Resistance level 2 Reps/Minutes 3x10 Standing band flexion Resistance level 3 Reps/Minutes 3x10 Physical Therapy Assessment Goals 3 Impairment Pain levels Short Term Goal (STG Patient will report a reduction in pain at worst to a 4 ) /10 in order to better function with completing tasks around her home. STG Duration 3 weeks Custodial Goal (LTG) Patient will report a reduction in pain at worst to a 2 /10 in order to better function with completing tasks around her home. LTG Duration 6 weeks 2 Impairment HEP Short Term Goal (STG Patient will initiate home exercise program. ) 03/23/25: GOAL MET: has been instructed in HEP: standing TB FF, ABD, ER, IR, HABD, incline pushups, added resisted UE forearm wall walking today, self STMs with theracane MWM head turns/nods/scap mobilty, stretching: UT,LS, Scalenes. STG Duration 3 weeks GOAL MET 03/23/25 Custodial Goal (LTG) Patient will be independent with home exercise in order to maintain progress independently. LTG Duration 6 weeks One Impairment L shoulder flexion strength Short Term Goal (STG Patient will demonstrate an increase in pain free L ) shoulder flexion strength to 4/5 MMT in order to better function with lifting. STG Duration 3 weeks Custodial Goal (LTG) Patient will demonstrate an increase in pain free L shoulder flexion strength to 5/5 MMT in order to better function with lifting. LTG Duration 6 weeks Assessment Summary Assessment Treatment focused on progressing shoulder loading in symptoms free ranges. Patient tolerated increased loads well with no increases in pain levels. Median nerve glides were added to program after patient reported some nerve symptoms down the arm. Plan next session to follow up on home exercises and continue with plan of care. Physical Therapy Plan Frequency and Duration Frequency of 2x/Week Treatment Duration of 12 treatment (weeks) Plan of Care Start 03/11/25 Date Plan of Care End 06/09/25 Date Next Visit Focus/Plan Next Visit Plan Progress strengthening as in pain free ranges as tolerated to allow return to washing 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 Current HEP: - Band flexion - Band abduction - Band ER - Median nerve glides
--- NOTE | 2025-04-07 08:58 | PT.OPPN ---
Current Diagnoses Pain in left shoulder (04/07/25) Physical Therapy Progress Note PT OP: Cervical/Upper Extremity Start: 03/11/25 13:03 Freq: Status: Active Protocol: Document 04/07/25 07:24 BRITANY (Rec: 04/07/25 08:58 [email or web address] [id number]) Out-Patient Physical Therapy Visit Information Visit Information Visit Type Progress Note Visit Start Time 08:15 Visit Stop Time 08:48 Visit Number 6 Number of NUCLEAR EQUIPMENT TEST ENGINEER Visits 0 Progress Note Due 05/07/25 OP-PT Subjective Patient Comments Patient Comments Patient reports her shoulder has been doing well recently and she has been doing her home exercises which seem to help when she has time to do them. She reports overall GROC is 25%. She notes her improvement is made up of less symptoms including pain and tingling. She reports the remaining 75% is made up of some continued strength deficits and symptoms when she pushes her shoulder. Shoulder Goniometric Range of Motion Shoulder Measured in Degrees R passive Shoulder ROM WFL Yes Testing Position Supine Flexion 180 Abduction 180 External Rotation at 90 90 degrees Abduction Internal Rotation 45 R active Shoulder ROM WFL Yes Flexion 180 Abduction 180 External Rotation at 90 90 degrees Abduction Internal Rotation 45 L passive Shoulder ROM WFL Yes Testing Position Supine Flexion 175 Abduction 180 External Rotation at 90 90 degrees Abduction Internal Rotation 45 L Active Shoulder ROM WFL Yes Testing Position Supine Flexion 160 Abduction 150 External Rotation at 90 90 degrees Abduction Internal Rotation 45 Shoulder Strength Shoulder Manual Muscle Testing L Flexion 4 Good Abduction (C5) 4 Good External Rotation 4 Good Internal Rotation 5 Normal R Flexion 5 Normal Abduction (C5) 5 Normal External Rotation 5 Normal Internal Rotation 5 Normal Therapeutic Exercises Standing Exercises Band IR/ ER Side left Resistance Blue band Reps/Minutes 3x15 each direction 90-90 flexion band ER Resistance level 1 Reps/Minutes 2x10 Standing band abduction Resistance 3# Reps/Minutes 2x10 Standing band flexion Resistance 3# Reps/Minutes 3x10 Physical Therapy Assessment Goals 3 Impairment Pain levels Short Term Goal (STG Patient will report a reduction in pain at worst to a 4 ) /10 in order to better function with completing tasks around her home. - Assess next session STG Duration 3 weeks Detention Goal (LTG) Patient will report a reduction in pain at worst to a 2 /10 in order to better function with completing tasks around her home. LTG Duration 6 weeks 2 Impairment HEP Short Term Goal (STG Patient will initiate home exercise program. ) 03/23/25: GOAL MET: has been instructed in HEP: standing TB FF, ABD, ER, IR, HABD, incline pushups, added resisted UE forearm wall walking today, self STMs with theracane MWM head turns/nods/scap mobilty, stretching: UT,LS, Scalenes. STG Duration 3 weeks GOAL MET 03/23/25 Detention Goal (LTG) Patient will be independent with home exercise in order to maintain progress independently. - In progress (04/07/2025) LTG Duration 6 weeks One Impairment L shoulder flexion strength Short Term Goal (STG Patient will demonstrate an increase in pain free L ) shoulder flexion strength to 4/5 MMT in order to better function with lifting. - Met (04/07/2025) STG Duration 3 weeks Detention Goal (LTG) Patient will demonstrate an increase in pain free L shoulder flexion strength to 5/5 MMT in order to better function with lifting. - In progress (04/07/2025) LTG Duration 6 weeks Assessment Summary Assessment Patient presenting to PT after 5 visits for L shoulder pain. She has noted improvement with symptoms and strength but still feels limited with overall function with her L shoulder and strength levels. Objective investigation demonstrated improvement in function (see measures: GROC), and strength (see measures: abduction MMT), but continued deficits with L shoulder AROM (see measures: flexion, abduction). Patient will continue to benefit from PT to address remaining deficits and return to full prior level of function. Physical Therapy Plan Frequency and Duration Frequency of 2x/Week Treatment Duration of 12 treatment (weeks) Plan of Care Start 03/11/25 Date Plan of Care End 06/09/25 Date Next Visit Focus/Plan Next Note Type Treatment Note Next Visit Plan Progress strengthening as in pain free ranges as tolerated to allow return to washing 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 Current HEP: - Band flexion - Band abduction - Band ER - Median nerve glides
--- NOTE | 2025-04-12 11:29 | PT.OTN ---
Current Diagnoses Pain in left shoulder (04/12/25) Physical Therapy Treatment Note PT OP: Cervical/Upper Extremity Start: 03/11/25 13:03 Freq: Status: Active Protocol: Document 04/12/25 10:47 JZ (Rec: 04/12/25 11:29 [email or web address] [id number]) Out-Patient Physical Therapy Visit Information Visit Information Visit Type Treatment Note Visit Start Time 10:47 Visit Stop Time 11:25 Visit Number 7 Number of CHICLE GRINDER FEEDER Visits 0 Progress Note Due 05/07/25 OP-PT Subjective Patient Comments Patient Comments Patient reports her shoulder has been doing okay. She reports she has had some tingling down her arm when sitting. Therapeutic Exercises Standing Exercises Weight bearing shoulder rotations Reps/Minutes 3x10 each side Comments non-adjustable plinth height Band IR/ ER Side left Resistance Purple band Reps/Minutes 3x15 each direction 90-90 flexion band ER Resistance level 1 Reps/Minutes 2x10 Pushups from elevated Equipment Used TM rail Reps/Minutes x10 on TM rail, 2x10 on elevated plinth Plank position shoulder taps Reps/Minutes 1x10 Band pull apart Side bilateral Resistance level 5 band Reps/Minutes 3x10 Comments palms up Supinated band flexion Standing Exercise Dumbell Name Resistance 3# DB Reps/Minutes 3x10 Standing band abduction Resistance 3# Reps/Minutes 3x10 Comments in symptom free range Standing band flexion Resistance 5# Reps/Minutes 3x10 Physical Therapy Assessment Goals 3 Impairment Pain levels Short Term Goal (STG Patient will report a reduction in pain at worst to a 4 ) /10 in order to better function with completing tasks around her home. - Assess next session STG Duration 3 weeks Cocoa Powder Mixer Operator Goal (LTG) Patient will report a reduction in pain at worst to a 2 /10 in order to better function with completing tasks around her home. LTG Duration 6 weeks 2 Impairment HEP Short Term Goal (STG Patient will initiate home exercise program. ) 03/23/25: GOAL MET: has been instructed in HEP: standing TB FF, ABD, ER, IR, HABD, incline pushups, added resisted UE forearm wall walking today, self STMs with theracane MWM head turns/nods/scap mobilty, stretching: UT,LS, Scalenes. STG Duration 3 weeks GOAL MET 03/23/25 Cocoa Powder Mixer Operator Goal (LTG) Patient will be independent with home exercise in order to maintain progress independently. - In progress (04/07/2025) LTG Duration 6 weeks One Impairment L shoulder flexion strength Short Term Goal (STG Patient will demonstrate an increase in pain free L ) shoulder flexion strength to 4/5 MMT in order to better function with lifting. - Met (04/07/2025) STG Duration 3 weeks Cocoa Powder Mixer Operator Goal (LTG) Patient will demonstrate an increase in pain free L shoulder flexion strength to 5/5 MMT in order to better function with lifting. - In progress (04/07/2025) LTG Duration 6 weeks Assessment Summary Assessment Treatment focused on progressing loads with strengthening exercises. Patient tolerated treatment well with no increases in pain levels. Plan next session to follow up on home exercises and continue with plan of care. Physical Therapy Plan Frequency and Duration Frequency of 2x/Week Treatment Duration of 12 treatment (weeks) Plan of Care Start 03/11/25 Date Plan of Care End 06/09/25 Date Next Visit Focus/Plan Next Note Type Treatment Note Next Visit Plan Progress strengthening as in pain free ranges as tolerated to allow return to washing 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 Current HEP: - Band flexion - Band abduction - Band ER - Median nerve glides
--- NOTE | 2025-04-14 11:33 | PT.OTN ---
Current Diagnoses Pain in left shoulder (04/14/25) Physical Therapy Treatment Note PT OP: Cervical/Upper Extremity Start: 03/11/25 13:03 Freq: Status: Active Protocol: Document 04/14/25 10:54 BRITANY (Rec: 04/14/25 11:33 BRITANY [id number]) Out-Patient Physical Therapy Visit Information Visit Information Visit Type Treatment Note Visit Start Time 10:55 Visit Stop Time 11:35 Visit Number 8 Number of SOUND PERSON Visits 0 Progress Note Due 05/07/25 OP-PT Subjective Patient Comments Patient Comments Patient reports her shoulder was feeling good after her last session. She had an appointment with orthopedics yesterday and was told she has a biceps tear along with a small supraspinatus tear. Therapeutic Exercises Standing Exercises Median nerve glides Reps/Minutes 2x15 Comments Instructed to go to the start of symptoms then immediately return Weight bearing shoulder rotations Reps/Minutes 3x10 each side Comments non-adjustable plinth height Band IR/ ER Side left Resistance Purple band Reps/Minutes 3x15 each direction 90-90 flexion band ER Resistance level 2 Reps/Minutes 3x10 Pushups from elevated Equipment Used TM rail Reps/Minutes x10 on TM rail, 2x10 on elevated plinth Plank position shoulder taps Reps/Minutes 1x10 Supinated band flexion Standing Exercise Dumbell Name Reps/Minutes 3x10 Standing band abduction Resistance 3# Reps/Minutes 3x10 Comments in symptom free range Standing band flexion Resistance 5# Reps/Minutes 3x10 Physical Therapy Assessment Goals 3 Impairment Pain levels Short Term Goal (STG Patient will report a reduction in pain at worst to a 4 ) /10 in order to better function with completing tasks around her home. Met (04/14/2025) (3/10 at worst) STG Duration 3 weeks Regulatory Submissions Specialist Goal (LTG) Patient will report a reduction in pain at worst to a 2 /10 in order to better function with completing tasks around her home. LTG Duration 6 weeks 2 Impairment HEP Short Term Goal (STG Patient will initiate home exercise program. ) 03/23/25: GOAL MET: has been instructed in HEP: standing TB FF, ABD, ER, IR, HABD, incline pushups, added resisted UE forearm wall walking today, self STMs with theracane MWM head turns/nods/scap mobilty, stretching: UT,LS, Scalenes. STG Duration 3 weeks GOAL MET 03/23/25 Regulatory Submissions Specialist Goal (LTG) Patient will be independent with home exercise in order to maintain progress independently. - In progress (04/07/2025) LTG Duration 6 weeks One Impairment L shoulder flexion strength Short Term Goal (STG Patient will demonstrate an increase in pain free L ) shoulder flexion strength to 4/5 MMT in order to better function with lifting. - Met (04/07/2025) STG Duration 3 weeks Senior Care Goal (LTG) Patient will demonstrate an increase in pain free L shoulder flexion strength to 5/5 MMT in order to better function with lifting. - In progress (04/07/2025) LTG Duration 6 weeks Assessment Summary Assessment Treatment focused on progressing loads with shoulder strengthening exercises. Patient tolerated treatment well with no increases in symptoms and reported muscular fatigue near end of sets. Plan next session to follow up on home exercises and response to today's session and progress loading as appropriate. Physical Therapy Plan Frequency and Duration Frequency of 2x/Week Treatment Duration of 12 treatment (weeks) Plan of Care Start 03/11/25 Date Plan of Care End 06/09/25 Date Next Visit Focus/Plan Next Note Type Treatment Note Next Visit Plan Progress strengthening as in pain free ranges as tolerated to allow return to washing 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 Current HEP: - Band flexion - Band abduction - Band ER - Median nerve glides
--- NOTE | 2025-04-18 10:33 | PT.OTN ---
Current Diagnoses Pain in left shoulder (04/18/25) Physical Therapy Treatment Note PT OP: Cervical/Upper Extremity Start: 03/11/25 13:03 Freq: Status: Active Protocol: Document 04/18/25 09:55 SP (Rec: 04/18/25 10:38 SP [id number]) Out-Patient Physical Therapy Visit Information Visit Information Visit Type Treatment Note Visit Start Time 09:55 Visit Stop Time 10:33 Visit Number 03/07 Number of ROOF DESIGNER Visits 1 Progress Note Due 05/07/25 OP-PT Subjective Patient Comments Patient Comments Pt reports did have little tingling in that went to her palm and at times fingers. Cardio Equipment Upper Body Ergometer (UBE) Duration (Minutes) 6 RPM 65 Seat Position 10 Height 3 Other 30 min f/b RPEs: 11 fairly light- cued RHomboid fac for eliminate clicking Therapeutic Exercises Prone Exercises Forearm Plank Prone Exercise Name Forearm & Knee Plank Equipment Used personal phone video with cues, yoga mat on floor Reps/Minutes 10 sec, 20 sec x2 Comments cues for CS chin tuck and SL PPT neutral spinal alignment- good challenge Standing Exercises UE Wall Walking Standing Exercise reviewed performance 04/18 Name Side bilateral Resistance Tb # 4 dark blue (latex) Equipment Used hands on wall approx chest height Reps/Minutes 15 ft x1ap Comments occasional cues for scap set, good tiring effort no pain Band IR/ ER Standing Exercise 1. ER 2. IR Name Side left Resistance Dark Blue #4 TB (latex)- uses resistance tubes home Equipment Used 1. between BUEs 2. anchored in door Reps/Minutes 3x15 each direction Comments cued distance away from door to give good effort and full range can do Pushups from elevated Equipment Used TM rail Reps/Minutes x10 on TM rail, 2x10 on elevated plinth Supinated band flexion Side bilateral Resistance TB #3 [place] green (latex) Equipment Used front of mirror self posture/scap corrections Reps/Minutes 3x10 Comments symptom free range, level posture Standing band abduction Side bilateral Resistance TB #3 [place] green (latex) Equipment Used front of mirror self posture/scap corrections Reps/Minutes 7x2 reps L, 10 reps R, alternating 3 sets Comments symptom free range, level posture Physical Therapy Assessment Goals 3 Impairment Pain levels Short Term Goal (STG Patient will report a reduction in pain at worst to a 4 ) /10 in order to better function with completing tasks around her home. Met (04/14/2025) (3/10 at worst) STG Duration 3 weeks Second Operator Goal (LTG) Patient will report a reduction in pain at worst to a 2 /10 in order to better function with completing tasks around her home. LTG Duration 6 weeks 2 Impairment HEP Short Term Goal (STG Patient will initiate home exercise program. ) 03/23/25: GOAL MET: has been instructed in HEP: standing TB FF, ABD, ER, IR, HABD, incline pushups, added resisted UE forearm wall walking today, self STMs with theracane MWM head turns/nods/scap mobilty, stretching: UT,LS, Scalenes. STG Duration 3 weeks GOAL MET 03/23/25 Correction Goal (LTG) Patient will be independent with home exercise in order to maintain progress independently. - In progress (04/07/2025) LTG Duration 6 weeks One Impairment L shoulder flexion strength Short Term Goal (STG Patient will demonstrate an increase in pain free L ) shoulder flexion strength to 4/5 MMT in order to better function with lifting. - Met (04/07/2025) STG Duration 3 weeks Second Operator Goal (LTG) Patient will demonstrate an increase in pain free L shoulder flexion strength to 5/5 MMT in order to better function with lifting. 04/07/25 IN progress Current HEP: - Band flexion - Band abduction - Band ER - Median nerve glides LTG Duration 6 weeks updated 04/07/25 Assessment Summary Assessment Progressed resistance therabands today level and use latex for ease storage in luggage for away on vacation. Use mirror, cuing in phone video for postural/ alignment corrections needed for proper form. Good feedback no pain today and able progress modified plank up to 20 sec. Physical Therapy Plan Frequency and Duration Frequency of 2x/Week Treatment Duration of 12 treatment (weeks) Plan of Care Start 03/11/25 Date Plan of Care End 06/09/25 Date Therapeutic Interventions Therapeutic Coordination Training,Home Exercise Program,Joint Interventions Mobilizations,Manual Therapy,Neuromuscular Re-education ,Patient/Caregiver Education,Self-Care/Home Management, Soft Tissue Mobilization,Taping,Therapeutic Activities, Therapeutic Exercises Modalities Biofeedback,Cold Pack/Ice Massage,Electric Stimulation, Hot Packs,Iontophoresis,Ultrasound Next Visit Focus/Plan Next Note Type Treatment Note Next Visit Plan Progress strengthening as in pain free ranges as tolerated to allow return to washing 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 Current HEP: - Band flexion - Band abduction - Band ER - Median nerve glides
--- NOTE | 2025-04-21 13:49 | PT.OTN ---
Current Diagnoses Pain in left shoulder (04/21/25) Physical Therapy Treatment Note PT OP: Cervical/Upper Extremity Start: 03/11/25 13:03 Freq: Status: Active Protocol: Document 04/21/25 13:07 BRITANY (Rec: 04/21/25 13:49 BRITANY [id number]) Out-Patient Physical Therapy Visit Information Visit Information Visit Type Treatment Note Visit Start Time 13:03 Visit Stop Time 13:42 Visit Number 04/06 Number of SALT MANAGER Visits 0 Progress Note Due 05/07/25 OP-PT Subjective Patient Comments Patient Comments Patient reports her shoulders are still feeling good. She has had slight tingling in her arm at times that has responded well to her nerve glides. Therapeutic Exercises Standing Exercises Weight bearing shoulder rotations Reps/Minutes 3x10 each side Comments non-adjustable plinth height Band IR/ ER Side left Resistance Purple band Reps/Minutes 3x15 each direction 90-90 flexion band ER Resistance level 2 Reps/Minutes 3x10 Pushups from elevated Equipment Used plinth height Reps/Minutes 1x8, 2x6 Plank position shoulder taps Reps/Minutes 1x10 Band pull apart Side bilateral Resistance level 3 band Reps/Minutes 3x15 Comments palms up Supinated band flexion Standing Exercise Dumbell Name Resistance 3# Reps/Minutes 3x10 Standing band abduction Standing Exercise Dumbell Name Side bilateral Resistance 4# Reps/Minutes 3x15 Standing band flexion Resistance 5# Reps/Minutes 3x10 Physical Therapy Assessment Goals 3 Impairment Pain levels Short Term Goal (STG Patient will report a reduction in pain at worst to a 4 ) /10 in order to better function with completing tasks around her home. Met (04/14/2025) (3/10 at worst) STG Duration 3 weeks Life Advisor Goal (LTG) Patient will report a reduction in pain at worst to a 2 /10 in order to better function with completing tasks around her home. LTG Duration 6 weeks 2 Impairment HEP Short Term Goal (STG Patient will initiate home exercise program. ) 03/23/25: GOAL MET: has been instructed in HEP: standing TB FF, ABD, ER, IR, HABD, incline pushups, added resisted UE forearm wall walking today, self STMs with theracane MWM head turns/nods/scap mobilty, stretching: UT,LS, Scalenes. STG Duration 3 weeks GOAL MET 03/23/25 Life Advisor Goal (LTG) Patient will be independent with home exercise in order to maintain progress independently. - In progress (04/07/2025) LTG Duration 6 weeks One Impairment L shoulder flexion strength Short Term Goal (STG Patient will demonstrate an increase in pain free L ) shoulder flexion strength to 4/5 MMT in order to better function with lifting. - Met (04/07/2025) STG Duration 3 weeks Life Advisor Goal (LTG) Patient will demonstrate an increase in pain free L shoulder flexion strength to 5/5 MMT in order to better function with lifting. 04/07/25 IN progress Current HEP: - Band flexion - Band abduction - Band ER - Median nerve glides LTG Duration 6 weeks updated 04/07/25 Assessment Summary Assessment Treatment focused on progressing strengthening exercises. Patient tolerated treatment well with no increases in symptoms. Time was spent discussing exercises to continue with while on vacation. Plan next session to follow up on home exercises and continue with plan of care. Physical Therapy Plan Frequency and Duration Frequency of 2x/Week Treatment Duration of 12 treatment (weeks) Plan of Care Start 03/11/25 Date Plan of Care End 06/09/25 Date Next Visit Focus/Plan Next Note Type Treatment Note Next Visit Plan Progress strengthening as in pain free ranges as tolerated to allow return to washing 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 Current HEP: - Band flexion - Band abduction - Band ER - Median nerve glides
--- NOTE | 2025-05-10 09:14 | PT.OPPN ---
Current Diagnoses Pain in left shoulder (05/10/25) Physical Therapy Progress Note PT OP: Cervical/Upper Extremity Start: 03/11/25 13:03 Freq: Status: Active Protocol: Document 05/10/25 08:18 BRITANY (Rec: 05/10/25 09:14 BRITANY [id number]) Out-Patient Physical Therapy Visit Information Visit Information Visit Type Progress Note Visit Start Time 08:18 Visit Stop Time 09:00 Visit Number 05/07 Number of TAX MANAGER Visits 0 Progress Note Due 06/09/25 OP-PT Subjective Patient Comments Patient Comments Patient reports her shoulder has been doing well. She did not have any pain while she was on her trip. She reports that she gets some radicular symptoms when walking at times. She reports she has been avoiding certain movements that have caused shoulder pain in the past but she is willing to try starting those movements again. She reports her GROC is 75%. She reports that progress is made up of improvement with symptom management. Patient Questionnaires Quick Dash- Upper Extremity Quick Dash UE Score 9.1 Quick Dash UE 1 to 19% Impaired (Score 1-19) Impairment Shoulder Goniometric Range of Motion Shoulder Measured in Degrees R passive Shoulder ROM WFL Yes Testing Position Supine Flexion 180 Abduction 180 External Rotation at 90 90 degrees Abduction Internal Rotation 45 R active Shoulder ROM WFL Yes Flexion 180 Abduction 180 External Rotation at 90 90 degrees Abduction Internal Rotation 45 Shoulder Strength Shoulder Manual Muscle Testing L Flexion 4 Good Abduction (C5) 5 Normal External Rotation 5 Normal Internal Rotation 5 Normal R Flexion 5 Normal Abduction (C5) 5 Normal External Rotation 5 Normal Internal Rotation 5 Normal Therapeutic Exercises Sitting Exercises Seated OH press Resistance 8# Reps/Minutes 3x10 Comments Verbal and tactile cues for mechanics and full flexion Standing Exercises Weight bearing shoulder rotations Reps/Minutes 3x10 each side Comments non-adjustable plinth height Pushups from elevated Equipment Used plinth height Reps/Minutes 3x10 Standing band flexion Resistance 5# Reps/Minutes 3x10 Physical Therapy Assessment Goals 3 Impairment Pain levels Short Term Goal (STG Patient will report a reduction in pain at worst to a 4 ) /10 in order to better function with completing tasks around her home. Met (04/14/2025) (3/10 at worst) STG Duration 3 weeks Universal Winding Machine Operator Goal (LTG) Patient will report a reduction in pain at worst to a 2 /10 in order to better function with completing tasks around her home. Met (05/10/2025) LTG Duration 6 weeks 2 Impairment HEP Short Term Goal (STG Patient will initiate home exercise program. ) 03/23/25: GOAL MET: has been instructed in HEP: standing TB FF, ABD, ER, IR, HABD, incline pushups, added resisted UE forearm wall walking today, self STMs with theracane MWM head turns/nods/scap mobilty, stretching: UT,LS, Scalenes. STG Duration 3 weeks GOAL MET 03/23/25 Nursing Home Goal (LTG) Patient will be independent with home exercise in order to maintain progress independently. - In progress (04/07/2025) LTG Duration 6 weeks One Impairment L shoulder flexion strength Short Term Goal (STG Patient will demonstrate an increase in pain free L ) shoulder flexion strength to 4/5 MMT in order to better function with lifting. - Met (04/07/2025) STG Duration 3 weeks Nursing Home Goal (LTG) Patient will demonstrate an increase in pain free L shoulder flexion strength to 5/5 MMT in order to better function with lifting. 05/10/25 - In progress LTG Duration 6 weeks updated 04/07/25 Assessment Summary Assessment Patient presenting to PT after 10 visits for L shoulder pain. Patient has made improvements with symptoms and function. Objective investigation revealed improvement in L shoulder strength (see measures: abduction MMT), and function (see measures: QuickDASH, GROC). Patient still has not returned to full prior level of function and is still self-limiting with overhead and lifting activities. She will benefit from 3-4 more weeks of PT to progress overhead activities and guide return to full prior level of function. Physical Therapy Plan Frequency and Duration Frequency of 2x/Week Treatment Duration of 12 treatment (weeks) Plan of Care Start 03/11/25 Date Plan of Care End 06/09/25 Date Next Visit Focus/Plan Next Note Type Treatment Note Next Visit Plan Progress strengthening as in pain free ranges as tolerated to allow return to washing 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 Current HEP: - Band flexion - Band abduction - Band ER - Median nerve glides
--- NOTE | 2025-05-12 09:04 | PT.OTN ---
Current Diagnoses Pain in left shoulder (05/12/25) Physical Therapy Treatment Note PT OP: Cervical/Upper Extremity Start: 03/11/25 13:03 Freq: Status: Active Protocol: Document 05/12/25 08:18 SP (Rec: 05/12/25 09:03 SP [id number]) Out-Patient Physical Therapy Visit Information Visit Information Visit Type Re-Evaluation Visit Start Time 08:18 Visit Stop Time 08:58 Visit Number 06/06 Number of CAR UNLOADER HELPER Visits 1 Progress Note Due 06/09/25 OP-PT Subjective Patient Comments Patient Comments Pt reports little sore L deltoid and Therapeutic Exercises Standing Exercises Ys off Wall Resistance Tb #3 Reps/Minutes 10 reps x2 Comments cues scapular depresssion glide into OH raise UE Wall Walking Side bilateral Resistance Tb #3 Reps/Minutes 15 ft each direction Comments cues for allow GH HABD/eccentric HADD with elbow 90deg Weight bearing shoulder rotations Equipment Used non-adjustable plinth height Reps/Minutes 3x10 each side Comments cued arm HABD then scap & TS rotation, CS retraction neutral Band IR/ ER Standing Exercise 90/90 Name Side left Resistance IR Tb #1 latex light blue, ER TB #1 nonlatex peach Reps/Minutes 2x 8-10 each direction Comments tactil cues maintain abd 90 deg, elbow 90deg, LT/ Rhomboid fac Band pull apart Side bilateral Resistance level 3 band Reps/Minutes 10, 7 reps before UT and pec tiring Comments cued palms up Supinated band flexion Standing Exercise Dumbell Name Resistance 3# Equipment Used front mirror Reps/Minutes 10, 7 reps before tiring last rep each set Comments good pacing and form Standing band abduction Standing Exercise Dumbell Name Side bilateral Resistance 4# Equipment Used front mirror Reps/Minutes 2x8 before tires Comments tactile cue scap and prox GH inferior glide- no snap feeling Physical Therapy Assessment Goals 3 Impairment Pain levels Short Term Goal (STG Patient will report a reduction in pain at worst to a 4 ) /10 in order to better function with completing tasks around her home. Met (04/14/2025) (3/10 at worst) STG Duration 3 weeks Subsorter Goal (LTG) Patient will report a reduction in pain at worst to a 2 /10 in order to better function with completing tasks around her home. Met (05/10/2025) LTG Duration 6 weeks 2 Impairment HEP Short Term Goal (STG Patient will initiate home exercise program. ) 03/23/25: GOAL MET: has been instructed in HEP: standing TB FF, ABD, ER, IR, HABD, incline pushups, added resisted UE forearm wall walking today, self STMs with theracane MWM head turns/nods/scap mobilty, stretching: UT,LS, Scalenes. STG Duration 3 weeks GOAL MET 03/23/25 Alf Goal (LTG) Patient will be independent with home exercise in order to maintain progress independently. - In progress (04/07/2025) LTG Duration 6 weeks One Impairment L shoulder flexion strength Short Term Goal (STG Patient will demonstrate an increase in pain free L ) shoulder flexion strength to 4/5 MMT in order to better function with lifting. - Met (04/07/2025) STG Duration 3 weeks Alf Goal (LTG) Patient will demonstrate an increase in pain free L shoulder flexion strength to 5/5 MMT in order to better function with lifting. 05/10/25 - In progress LTG Duration 6 weeks updated 04/07/25 Assessment Summary Assessment Pt good feedback tiring response to loading therex in abd and ABD ER & IR today for strengthening midrange typically is challenged to support putting box up on/ off shelf today. Declined Pics for abd 90deg and humeral IR/ER today, cues for maintaining abd 90deg chest lift or elbow back like touching wall even with back. Pt reports less GH clicking or tendon rolling with cue scap and or proximal humerus inf glide midrange FF, ABD. Physical Therapy Plan Frequency and Duration Frequency of 2x/Week Treatment Duration of 12 treatment (weeks) Plan of Care Start 03/11/25 Date Plan of Care End 06/09/25 Date Therapeutic Interventions Therapeutic Coordination Training,Home Exercise Program,Joint Interventions Mobilizations,Manual Therapy,Neuromuscular Re-education ,Patient/Caregiver Education,Self-Care/Home Management, Soft Tissue Mobilization,Taping,Therapeutic Activities, Therapeutic Exercises Modalities Biofeedback,Cold Pack/Ice Massage,Electric Stimulation, Hot Packs,Iontophoresis,Ultrasound Next Visit Focus/Plan Next Note Type Treatment Note Next Visit Plan Progress strengthening as in pain free ranges as tolerated to allow return to washing 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 Current HEP: - Band flexion - Band abduction - Band ER - Median nerve glides
--- NOTE | 2025-05-18 08:14 | PT.OTN ---
Current Diagnoses Pain in left shoulder (05/18/25) Physical Therapy Treatment Note PT OP: Cervical/Upper Extremity Start: 03/11/25 13:03 Freq: Status: Active Protocol: Document 05/18/25 07:31 SP (Rec: 05/18/25 08:18 SP [id number]) Out-Patient Physical Therapy Visit Information Visit Information Visit Type Treatment Note Visit Start Time 07:31 Visit Stop Time 08:14 Visit Number 1315 Number of TRANSMISSION REPAIRER Visits 2 Progress Note Due 06/09/25 OP-PT Subjective Patient Comments Patient Comments Pt attended a Bar by the Uziel class and sore from head to toe. The instructor gave good modifications needed for upper body, there was push ups but she modified off knees and modified range, class did sets of 20reps with total of 80 but she did 3 sets and just planked the rest. Therapeutic Exercises Prone Exercises Quadruped Child's Pose & Thread Needle Prone Exercise Name Cool Down/Stretchin. child's pose 2. Thread needle Side bilateral Reps/Minutes 1. UEs over tball fwd& lateral 2. 5 reps each side Comments good slow pace stretch Over Tball Prone Exercise Name Ts, Is, Ys Side bilateral Resistance Prone: 3# DB Ts 3x10 and 5# DB 5 reps, 2x10 Is 3# DB, Equipment Used Supine: pec stretch 30 s and Ts TB #3 10 reps Sidelying Exercises Open Book Sidelying Exercise Cool Down Name Side bilateral Reps/Minutes 5 reps each side Comments Good slow pacing and breath end range last 2 reps for rib mobility Standing Exercises UBE Standing Exercise Standing: height 7.5 Name Resistance 50 RPMs Reps/Minutes 6 min: 1 min f/b Comments JUAN 12 SomeWhat Hard UE Wall Walking Side bilateral Resistance Tb #3 Reps/Minutes 15 ft each direction Comments cues for allow GH HABD/eccentric HADD with elbow 90deg Standing band abduction Standing Exercise Dumbell Name Side bilateral Resistance 4# DB Equipment Used front mirror Reps/Minutes 2x8 before tires Comments tactile cue scap and prox GH inferior glide- no snap feeling Standing band flexion Resistance 5# DB Equipment Used Front of Mirror Reps/Minutes 2x10 Comments good form, challenginglast rep 1st set and last 3 reps of 2nd set Self-Care/Home Management Treatment Education Patient Education Safety Other Education Education importance of hydration and supportive diet to support activity performing in PT. Discussed my still be dehydrated from day prior Bar class with noted soreness all over reported at arrival, unsure. Physical Therapy Assessment Goals 3 Impairment Pain levels Short Term Goal (STG Patient will report a reduction in pain at worst to a 4 ) /10 in order to better function with completing tasks around her home. Met (04/14/2025) (3/10 at worst) STG Duration 3 weeks Order Checker Packer Processer Goal (LTG) Patient will report a reduction in pain at worst to a 2 /10 in order to better function with completing tasks around her home. Met (05/10/2025) LTG Duration 6 weeks 2 Impairment HEP Short Term Goal (STG Patient will initiate home exercise program. ) 03/23/25: GOAL MET: has been instructed in HEP: standing TB FF, ABD, ER, IR, HABD, incline pushups, added resisted UE forearm wall walking today, self STMs with theracane MWM head turns/nods/scap mobilty, stretching: UT,LS, Scalenes. STG Duration 3 weeks GOAL MET 03/23/25 Correction Goal (LTG) Patient will be independent with home exercise in order to maintain progress independently. - In progress (04/07/2025) LTG Duration 6 weeks One Impairment L shoulder flexion strength Short Term Goal (STG Patient will demonstrate an increase in pain free L ) shoulder flexion strength to 4/5 MMT in order to better function with lifting. - Met (04/07/2025) STG Duration 3 weeks Correction Goal (LTG) Patient will demonstrate an increase in pain free L shoulder flexion strength to 5/5 MMT in order to better function with lifting. 05/10/25 - In progress LTG Duration 6 weeks updated 04/07/25 Assessment Summary Assessment Pt experienced little nausea, headache after came up from prone over tball but reports good tiring effort with resisted UE ther ex. Discussed imortance of hydrated food intake to support activity and stretching /self massage to decrease soreness from previous day bar class. Good response to resisted ther ex today, incorporated stretching and AROM end tx for support cool down and decrease soreness still experiencing from class taned day prior. Physical Therapy Plan Frequency and Duration Frequency of 2x/Week Treatment Duration of 12 treatment (weeks) Plan of Care Start 03/11/25 Date Plan of Care End 06/09/25 Date Therapeutic Interventions Therapeutic Coordination Training,Home Exercise Program,Joint Interventions Mobilizations,Manual Therapy,Neuromuscular Re-education ,Patient/Caregiver Education,Self-Care/Home Management, Soft Tissue Mobilization,Taping,Therapeutic Activities, Therapeutic Exercises Modalities Biofeedback,Cold Pack/Ice Massage,Electric Stimulation, Hot Packs,Iontophoresis,Ultrasound Next Visit Focus/Plan Next Note Type Treatment Note Next Visit Plan 2 more visit approved, thinks might be ready for DC to self HEP and classes. 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 Current HEP: - Band flexion - Band abduction - Band ER - Median nerve glides
--- NOTE | 2025-05-24 10:31 | PT.OTN ---
Current Diagnoses Pain in left shoulder (05/24/25) Physical Therapy Treatment Note PT OP: Cervical/Upper Extremity Start: 03/11/25 13:03 Freq: Status: Active Protocol: Document 05/24/25 09:45 [email or web address] (Rec: 05/24/25 10:31 [email or web address] [id number]) Out-Patient Physical Therapy Visit Information Visit Information Visit Type Treatment Note Visit Start Time 09:45 Visit Stop Time 10:25 Visit Number 14/15 Number of PRIMER INSPECTOR Visits 0 Progress Note Due 06/09/25 OP-PT Subjective Patient Comments Patient Comments Patient reports her shoulder has been feeling good. She feels good about her next session being her last Therapeutic Exercises Sitting Exercises Seated OH press Resistance 8# Reps/Minutes 3x10 Comments Verbal and tactile cues for mechanics and full flexion Standing Exercises Band Y Resistance orange band Reps/Minutes 3x10 Weight bearing shoulder rotations Equipment Used non-adjustable plinth height Reps/Minutes 2x10 each side Band IR/ ER Standing Exercise By side Name Side left Resistance Purple Reps/Minutes 3x10 Pushups from elevated Equipment Used plinth height Reps/Minutes 3x10 Band pull apart Side bilateral Resistance level 3 band Comments cued palms up Supinated band flexion Standing Exercise Dumbell Name Resistance 5# Reps/Minutes 10, 7 reps before tiring last rep each set Comments good pacing and form Standing band abduction Standing Exercise Dumbell Name Side bilateral Resistance 5# DB Reps/Minutes 3x10 Standing band flexion Resistance 4# Reps/Minutes 3x10 Physical Therapy Assessment Goals 3 Impairment Pain levels Short Term Goal (STG Patient will report a reduction in pain at worst to a 4 ) /10 in order to better function with completing tasks around her home. Met (04/14/2025) (3/10 at worst) STG Duration 3 weeks Road Sign Installer Goal (LTG) Patient will report a reduction in pain at worst to a 2 /10 in order to better function with completing tasks around her home. Met (05/10/2025) LTG Duration 6 weeks 2 Impairment HEP Short Term Goal (STG Patient will initiate home exercise program. ) 03/23/25: GOAL MET: has been instructed in HEP: standing TB FF, ABD, ER, IR, HABD, incline pushups, added resisted UE forearm wall walking today, self STMs with theracane MWM head turns/nods/scap mobilty, stretching: UT,LS, Scalenes. STG Duration 3 weeks GOAL MET 03/23/25 Prison Goal (LTG) Patient will be independent with home exercise in order to maintain progress independently. - In progress (04/07/2025) LTG Duration 6 weeks One Impairment L shoulder flexion strength Short Term Goal (STG Patient will demonstrate an increase in pain free L ) shoulder flexion strength to 4/5 MMT in order to better function with lifting. - Met (04/07/2025) STG Duration 3 weeks Prison Goal (LTG) Patient will demonstrate an increase in pain free L shoulder flexion strength to 5/5 MMT in order to better function with lifting. 05/10/25 - In progress LTG Duration 6 weeks updated 04/07/25 Assessment Summary Assessment Treatment focused on continued shoulder strengthening, particularly in overhead positions. Patient tolerated treatment well with no increases in pain levels or radicular symptoms. Plan next session to review home exercises and discharge pending continued improvement and confidence continuing HEP independently. Physical Therapy Plan Frequency and Duration Frequency of 2x/Week Treatment Duration of 12 treatment (weeks) Plan of Care Start 03/11/25 Date Plan of Care End 06/09/25 Date Next Visit Focus/Plan Next Note Type Treatment Note Next Visit Plan 2 more visit approved, thinks might be ready for DC to self HEP and classes. 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 Current HEP: - Band flexion - Band abduction - Band ER - Median nerve glides
--- NOTE | 2025-06-02 10:06 | PT.OPDS ---
Current Diagnoses Pain in left shoulder (06/02/25) Visit Care Team Role Provider Type JONH Jefferson Primary Care Provider Advanced Textile Technical Officer Specialty: Medical Address: [address] [place] [address], [id number] Email: [email or web address] JONH Farah Family Provider Non-Staff Specialty: [facility] Address: [address] [place] [address], [id number] Email: JONH Zelaya Attending Provider Non-Staff Referring Provider Specialty: [facility] Address: [address] [facility] [place], [address] Email: Visit Number Visit Number Discharge Summary PT OP: Cervical/Upper Extremity Start: 03/11/25 13:03 Freq: Status: Active Protocol: Document 06/02/25 07:33 BRITANY (Rec: 06/02/25 10:05 BRITANY [id number]) Out-Patient Physical Therapy Visit Information Visit Information Visit Type Discharge Summary Visit Start Time 09:45 Visit Stop Time 10:30 Visit Number Number of PUBLIC INFORMATION DIRECTOR Visits 0 Progress Note Due 06/09/25 OP-PT Subjective Patient Comments Patient Comments Patient reports she saw orthopedics last week which went well. She reports she has been going her bar class Therapeutic Exercises Sitting Exercises Seated OH press Resistance 8# Reps/Minutes 3x10 Comments Verbal and tactile cues for mechanics and full flexion Standing Exercises Band Y Resistance orange band Reps/Minutes 3x10 Weight bearing shoulder rotations Equipment Used non-adjustable plinth height Reps/Minutes 2x10 each side Band IR/ ER Standing Exercise By side Name Side left Resistance Purple Reps/Minutes 2x10 Pushups from elevated Equipment Used plinth height Reps/Minutes 2x10 Supinated band flexion Standing Exercise Dumbell Name Resistance 5# Reps/Minutes 3x10 Comments good pacing and form Standing band abduction Standing Exercise Dumbell Name Side bilateral Resistance 5# DB Reps/Minutes 3x10 Physical Therapy Assessment Goals 3 Impairment Pain levels Short Term Goal (STG Patient will report a reduction in pain at worst to a 4 ) /10 in order to better function with completing tasks around her home. Met (04/14/2025) (3/10 at worst) STG Duration 3 weeks Jail Goal (LTG) Patient will report a reduction in pain at worst to a 2 /10 in order to better function with completing tasks around her home. Met (05/10/2025) LTG Duration 6 weeks 2 Impairment HEP Short Term Goal (STG Patient will initiate home exercise program. ) 03/23/25: GOAL MET: has been instructed in HEP: standing TB FF, ABD, ER, IR, HABD, incline pushups, added resisted UE forearm wall walking today, self STMs with theracane MWM head turns/nods/scap mobilty, stretching: UT,LS, Scalenes. STG Duration 3 weeks GOAL MET 03/23/25 Application Analyst Goal (LTG) Patient will be independent with home exercise in order to maintain progress independently. - In progress (04/07/2025) - Met (06/02/2025) LTG Duration 6 weeks One Impairment L shoulder flexion strength Short Term Goal (STG Patient will demonstrate an increase in pain free L ) shoulder flexion strength to 4/5 MMT in order to better function with lifting. - Met (04/07/2025) STG Duration 3 weeks Jail Goal (LTG) Patient will demonstrate an increase in pain free L shoulder flexion strength to 5/5 MMT in order to better function with lifting. 05/10/25 - In progress LTG Duration 6 weeks updated 04/07/25 Assessment Summary Assessment Treatment focused on reviewing home exercises and discussing continued independent management. Because of previously documented progress in presentation, and patient-reported confidence with independent management , today will be her last formal PT session. Physical Therapy Plan Frequency and Duration Frequency of 2x/Week Treatment Duration of 12 treatment (weeks) Plan of Care Start 03/11/25 Date Plan of Care End 06/09/25 Date Next Visit Focus/Plan Next Note Type Treatment Note Next Visit Plan N/A - patient to be discharged on this date Current HEP: - Band flexion - Band abduction - Band ER - Median nerve glides
== END 2025-06-02 11:03 | disposition home or self-care (01) ==
LOC: PHYS 08:15
PROVIDERS: Family Provider Nurse Practitioner; PCP Registered Nurse Diabetes Educator; Referring Provider Registered Nurse; Visit Provider Registered Nurse
DX: M25.512 Pain in left shoulder (principal)
CPT/HCPCS: 97110; 97161; 97535